=== PATIENT | male | born 1935 | race Caucasian/White ===

== ENCOUNTER 2017-11-14 18:12 | Inpatient (IN) | payer OTHER, MEDICARE ==
[~2017-11-14] VITALS: Ht 180.3 cm; Wt 95.3 kg
[2017-11-14 18:49] LABS: ABSOLUTE BASOPHIL COUNT 0.1 /CUMM (0.0-0.2); ABSOLUTE EOSINOPHIL COUNT 0.2 /CUMM (0.0-0.7); ABSOLUTE GRANULOCYTE CT 9.5 /CUMM (1.4-6.5); ABSOLUTE LYMPH COUNT 3.1 /CUMM (1.2-3.4); ABSOLUTE MONOCYTE COUNT 1.1 /CUMM (0.10-0.60); BASOPHIL % 0.4 % (0.0-2.0); EOSINOPHIL % 1.7 % (0-5); GRANULOCYTE % 67.7 % (42.2-75.2); HEMATOCRIT 36.6 % (42-52); MEAN CORPUSCULAR HGB 27.7 PG (27.0-31.0); MEAN CORPUSCULAR VOLUME 86.7 FL (80.0-94.0); MEAN PLATELET VOLUME 7.4 FL (7.4-10.4); PLATELET COUNT 230 /CUMM (130-400); RBC DISTRIBUTION WIDTH 14.1 % (11.5-14.5); RED BLOOD CELL CT 4.22 /CUMM (4.70-6.10)
--- NOTE | 2017-11-14 18:53 | ED DYSPNEA/ASTHMA COMPLAINT ---
History of Present Illness General Chief Complaint: Dyspnea (COPD, CHF, Other) Stated Complaint: SOB Source: patient, family (SON) Exam Limitations: no limitations Vital Signs & Intake/Output Vital Signs & Intake/Output Vital Signs Date Time Temp Pulse Resp B/P B/P Pulse O2 O2 Flow FiO2 Mean Ox Delivery Rate 11/15 0207 95.7 81 22 129/77 95 Nasal 4.0L Cannula 11/147 98.7 86 24 125/67 95 Nasal 3.5L Cannula 11/14 2111 99.8 94 24 133/66 96 Nasal 3.5L Cannula 11/14 1929 100.5 11/14 1855 102 24 126/71 97 Nasal 4.0L Cannula 11/14 1833 100.8 11/14 1831 85 Room Air Room Air 11/14 1823 100.8 114 25 150/72 85 Room Air Room Air ED Intake and Output 11/15 0000 11/14 1200 Intake Total Output Total 120 Balance -120 Output, Urine 120 Patient 210 lb Weight Weight Reported by Patient Measurement Method Allergies Coded Allergies: NO KNOWN ALLERGIES (10/30/11) Triage Note: PT TO ED WITH SON FOR SOB S/P BEING OUT OF HIS BASELINE 2L NC OXYGEN FOR APPROX 1 HOUR. PT ARRIVES VERY SOB, HYPOXIC 85% ON RA WITH STEADY PLETH, PT NOTICEABLY HAD INCREASED WORK OF BREATHING. PLACED ON NORMAL 2L NC WITH IMPROVEMENT TO 98%. PT'S LUNGS NOTED WITH CRACKLES BILATERALLY. SATHYA INFANTE AT BEDSIDE ON ARRIVAL. RESP CALLED. Triage Nurses Notes Reviewed? yes Onset: Abrupt Duration: day(s): (3-4), constant, continues in ED, getting worse Timing: single episode today Severity: mild, moderate Activities at Onset: activity Prior Episodes/Possible Cause: occasional episodes Modifying Factors: Improves With: rest. Worsens With: movement. Associated Symptoms: cough, wheezing HPI: 82-year-old male past medical history of atrial fibrillation, pulmonary fibrosis , aortic aneurysm presents for evaluation of cough, shortness of breath, wheezing and hypoxia. Patient states that for the past 3 days he has had cough congestion bodyaches and intermittent fevers. The cough has been productive of yellow sputum. He states that todaY he went out for about an hour from his house and did not bring his oxygen. He usually is dependent on 2 L at all times. He did not bring the oxygen with him and began to become very short of breath worsening cough and dizzy. He denies any chest pain or hemoptysis lower extremity edema. He has not taken any Tylenol for his fever. No nausea vomiting diarrhea or abdominal pain. He does not smoke. (Shaun Kowalski) Reconcile Medications Albuterol Sulfate (Proair Hfa) 90 MCG HFA.AER.AD 2 PUF INH 4XDAILY RESP. ( Reported) Apixaban (Eliquis) 5 MG TABLET 1 TAB PO BID BLOOD THINNER (Reported) Aspirin (Ecotrin*) 81 MG TABLET.DR 1 TAB PO QPM HEART/BLOOD (Reported) Atorvastatin Calcium 20 MG TABLET 1 TAB PO DAILY CHOLESTEROL (Reported) Candesartan Cilexetil 4 MG TABLET 1 TAB PO DAILY BP (Reported) Ezetimibe (Zetia) 10 MG TABLET 1 TAB PO DAILY CHOLESTEROL (Reported) Magnesium Oxide (Magnesium) (Unknown Strength) CAPSULE (Unknown Dose) PO DAILY SUPPLEMENT (Reported) Metoprolol Succinate 50 MG TAB.ER.24H 1 TAB PO DAILY HEART/BP (Reported) Nortriptyline HCl 75 MG CAPSULE 175 MG PO QHS DEPRESSION (Reported) (Altaf PARKS,Josette) Past History Medical History Any Pertinent Medical History? see below for history Neurological: NONE EENT: NONE Cardiovascular: aortic aneurysm, AFIB, hypertension, hyperlipidemia, CARDIAC BIPASS L SIDE PACER/DEFIB Respiratory: bronchitis Gastrointestinal: constipation, HERNIA L GROIN Hepatic: NONE Renal: NONE Musculoskeletal: COMPRESSION FX Psychiatric: depression Endocrine: NONE Blood Disorders: NONE Cancer(s): NONE Surgical History Surgical History: non-contributory Psychosocial History What is your primary language Bengali Family History Hx Contributory? No (Shaun Kowalski) Review of Systems Review of Systems Constitutional: Reports: fever, malaise, weakness. EENTM: Reports: no symptoms. Respiratory: Reports: see HPI, cough, short of breath, sputum production. Cardiovascular: Reports: no symptoms. GI: Reports: no symptoms. Genitourinary: Reports: no symptoms. Musculoskeletal: Reports: no symptoms. Skin: Reports: no symptoms. Neurological/Psychological: Reports: no symptoms. Hematologic/Endocrine: Reports: no symptoms. Immunologic/Allergic: Reports: no symptoms. All Other Systems: Reviewed and Negative (Shaun Kowalski) Physical Exam Physical Exam General Appearance: well developed/nourished, alert, awake, moderate distress Head: atraumatic, normal appearance Eyes: Bilateral: normal appearance, PERRL, EOMI. Ears, Nose, Throat: normal pharynx, normal ENT inspection, hearing grossly normal Neck: normal inspection, supple, full range of motion, JVD Respiratory: chest non-tender, crackles, respiratory distress Cardiovascular: normal peripheral pulses, tachycardia (116 BPM) Peripheral Pulses: 2+ radial (R) Gastrointestinal: normal bowel sounds, soft, non-tender, no organomegaly Extremities: normal inspection, normal capillary refill, normal range of motion, no edema Neurologic/Psych: no motor/sensory deficits, awake, alert, oriented x 3, normal gait Skin: intact, normal color, warm/dry Lymphatic: no anterior cervical sabina Core Measures ACS in differential dx? No CVA/TIA Diagnosis No Sepsis Present: No Sepsis Focused Exam Completed? No (Thaddeus MCDONNELL,Shaun) Progress Differential Diagnosis: asthma, AMI, costochondritis, CHF, COPD, pericarditis, pulmonary embolism, pneumonia, pneumothorax, rib fracture, unstable angina, INFLUENZA Plan of Care: Orders Procedure Date/time Status Regular Diet 11/15 B Active CBC WITHOUT DIFFERENTIAL 11/15 0600 Active BASIC ELECTROLYTES PLUS BUN&CR 11/15 0600 Active CULTURE,URINE 11/14 2300 Active LOWER RESPIRATORY CULTURE 11/14 2300 Active TRC EVALUATION (GEN) 11/14 2242 Active OXYGEN SETUP (GEN) 11/14 224 Active Pathway - chart 11/14 224 Active House Staff 11/14 2242 Active Patient Data 11/14 2242 Active Code Status 11/14 2242 Active ED Holding Orders 11/14 2212 Active Admit to inpatient 11/14 2212 Active Vital Signs 11/14 2212 Active Code Status 11/14 2212 Complete LACTIC ACID 11/14 2128 Complete Patient Data 11/14 2108 Active MAGNESIUM 11/14 1828 Active LACTIC ACID 11/14 1828 Complete GLYCOSYLATED HGB 11/14 1828 Active D-DIMER 11/14 1828 Complete RAPID VIRAL INFLUENZA A 11/14 182 Complete BLOOD CULTURE 11/14 1826 Active URINALYSIS 11/14 1826 Complete TROPONIN LEVEL 11/14 1826 Active COMPREHENSIVE METABOLIC PANEL 11/14 1826 Active CBC WITHOUT DIFFERENTIAL 11/14 1826 Complete B-TYPE NATRIURETIC PEP (BNP) 11/14 1826 Active Intake & Output 11/14 1820 Active EKG 11/14 1818 Active Lab Add-on Test 11/14 UNK Active VTE Mechanical Prophylaxis 11/14 UNK Active Vital Signs 11/14 UNK Active Telemetry/Foundry Worker Apprentice 11/14 UNK Active Intake & Output 11/14 UNK Active Current Medications Sig/Sulaiman Start time Last Medication Dose Stop Time Status Admin Aspirin Buffered 81 MG QPM 11/15 2200 AC (Ecotrin) Atorvastatin Calcium 20 MG 1700 11/15 1700 AC (Lipitor) Azithromycin 500 MG DAILY 11/15 1000 CAN (Zithromax) Dextrose/Water 250 ML (D5W) Ceftriaxone Sodium 1,000 MG DAILY 11/15 1000 CAN (Rocephin) Ezetimibe 10 MG DAILY 11/15 1000 AC (Zetia) Losartan Potassium 25 MG DAILY 11/15 1000 AC (Cozaar) Metoprolol Succinate 50 MG DAILY 11/15 1000 AC (Toprol Xl) Nortriptyline HCl 175 MG QPM 11/14 2300 AC 11/14 (Aventyl 50MG - 2328 Pamelor Cap) Acetaminophen 650 MG Q6P PRN 11/14 2245 AC (Tylenol) Acetaminophen 1,000 MG Q6P PRN 11/14 2245 AC (Ofirmev) Morphine Sulfate 2 MG Q4P PRN 11/14 2245 AC (Morphine) Apixaban 5 MG BID 11/14 2243 AC 11/14 (Eliquis) 2328 Laboratory Tests 11/14/172124: Lactic Acid 1.5 11/14/172114: Urine Color YEL, Urine Clarity CLDY H, Urine pH 6.0, Ur Specific Downing 1.020, Urine Protein NEG, Urine Ketones NEG, Urine Nitrite POS H, Urine Bilirubin NEG, Urine Urobilinogen 1.0, Ur Leukocyte Esterase MOD H, Ur Microscopic SEDIMENT EXAMINED, Urine RBC 10-15 H, Urine WBC 50-75 H, Ur Epithelial Cells FEW, Urine Bacteria PACKD H, Urine Mucus FEW, Urine Hemoglobin LARGE H, Urine Glucose NEG 11/14/171827: Lactic Acid 2.9 H 11/14/171827: Anion Gap 15, Estimated GFR > 60, BUN/Creatinine Ratio 19.0, Glucose 166 H, Hemoglobin A1c Pending, Calcium 8.8, Magnesium 1.8, Total Bilirubin 0.6, AST 38, ALT 32, Alkaline Phosphatase 108, Troponin I 0.02, Ivu-M-Ghqbufohzge Pept 1860 H, Total Protein 7.7, Albumin 3.6, Globulin 4.1, Albumin/Globulin Ratio 0.9 L, D-Dimer High Sensitivty 1024 H, CBC w Diff NO MAN DIFF REQ, RBC 4.22 L, MCV 86.7, MCH 27.7, MCHC 32.0 L, RDW 14.1, MPV 7.4, Gran % 67.7, Lymphocytes % 22.1 , Monocytes % 8.1, Eosinophils % 1.7, Basophils % 0.4, Absolute Granulocytes 9.5 H, Absolute Lymphocytes 3.1, Absolute Monocytes 1.1 H, Absolute Eosinophils 0.2, Absolute Basophils 0.1 Microbiology 11/14 2299 URINE ROUT: Urine Culture - ORD 11/14 2299 LOWER RESP: Respiratory Culture - ORD 11/14 2299 LOWER RESP: Gram Stain - ORD 11/14 190 BLOOD: Blood Culture - RECD 11/14 184 BLOOD: Blood Culture - RECD 11/14 1828 NASOPHARYN: Influenza Virus A & B Rapid Smear - COMP Patient seen and evaluated. Upon initial presentation he is febrile and hypoxic. He is 85% on room air and in significant respiratory distress. Patient was placed on nasal cannula at 6 L and eventually was able to be titrated down to 3 L. Normally he is on too. Patient still has significant work of breathing with moving around the bed or talking. Rapid flu test is negative. Blood work shows a lactic acidosis and white blood cell count of 14, 000. Lactic acid is 2.9 slow fluids ordered. His d-dimer is elevated but CTA is negative for pulmonary embolism. There is aN interstitial pneumonia present on CTA. No recent hospitalizations, history of MRSA. Patient will be treated for community-acquired pneumonia with ceftriaxone and Zithromax. Additionally he'll be given IV Solu-Medrol for treatment of pulmonary fibrosis and hypoxia. He does take daily prednisone. Patient will be admitted to the hospital for further evaluation and treatment. He'll need IV antibiotics and IV steroids IV fluids pulmonology consults antipyretics DuoNeb's serial imaging. Case discussed with Dr. Harry she agrees Diagnostic Imaging: Viewed by Me: CT Scan. Discussed w/RAD: CT Scan. Radiology Impression: PATIENT: MAXIMINO MASON PRESENT AGE: 82 PATIENT ACCOUNT NO: [id number] : 36 LOCATION: [facility] ORDERING PHYSICIAN: Shaun MCDONNELL SERVICE DATE: 11/14/17 EXAM TYPE: CAT - CTA CHEST-PULMONARY EMBOLISM EXAMINATION: CT ANGIOGRAM OF THE CHEST WITH AND WITHOUT CONTRAST (CT PULMONARY ANGIOGRAM FOR PE) CLINICAL INFORMATION: Reason for Study:
Presumptive Dx: PE, PNA
Signs Symptoms: SOB, FEVER HYPOXIA < br> COMPARISON: CT chest 09/07/2015 TECHNIQUE: Prior to contrast administration, noncontrast localization images were obtained. Subsequently, multidetector volumetric imaging was performed from the thoracic inlet to below the diaphragms following the administration of 70 mL artery 350 intravenous contrast. No contrast reaction reported. Sagittal, coronal, and MIP oblique sagittal reformatted images were obtained on the CT workstation, uploaded to PACS, and reviewed. Total exam dose-length product 520 mGy-cm. FINDINGS: QUALITY OF STUDY/ CONTRAST BOLUS: Satisfactory PULMONARY ARTERIES: No central or segmental pulmonary emboli. No subsegmental pulmonary. THORACIC AORTA: No aneurysm or dissection. LUNG: There is significant progression of subpleural honeycombing evident anteriorly within both the upper left and upper right lobes and also present within the bases posteriorly. The area of involvement has at least doubled compared to the CT of 09/07/2015. Mild centrilobular anomaly upper lobe emphysema is redemonstrated. There are no areas of focal consolidation. No pleural effusion. PLEURA: No pleural effusion or pneumothorax. MEDIASTINUM: AICD device present in left upper chest, as before. The heart size is mildly enlarged. The main pulmonary artery remains enlarged measuring up to 3.6 cm in diameter. Numerous mediastinal lymph nodes are identified. AP window lymph nodes measure up to at least 1.3 cm in short axis diameter. Moderately severe coronary artery calcifications are also demonstrated. No evidence of septal bowing or right heart strain. CHEST WALL/AXILLA: No axillary or internal mammary lymphadenopathy. OSSEOUS STRUCTURES: High attenuation material is redemonstrated within the T8 and T12 vertebral bodies consistent with kyphoplasty. Compression fracture involving the T7 vertebral body with approximately 50% loss in height is redemonstrated appears stable compared to 2015. There is superior endplate deformity involving the T3 vertebral body also appears stable compared to previous. Median sternotomy wires in place. UPPER ABDOMEN: Gallstones are partially imaged. No reflux of contrast into the hepatic veins to suggest elevated right heart pressures. IMPRESSION: 1. No acute pulmonary embolism. 2. No convincing superimposed acute cardiopulmonary process. 3. Extensive subpleural honeycombing significantly increased compared to 2014 concerning for progression of usual interstitial pneumonia. Persistent mild underlying centrilobular emphysema. 4. Enlarged main pulmonary artery suggesting underlying pulmonary hypertension. 5. Cholelithiasis. 6. Stable appearance of multiple compression fractures involving the thoracic spine, some of which have been treated with kyphoplasty. VTE: negative DICTATED BY: Denita Hernández MD DATE/TIME DICTATED:11/14/172029 REPAIR SPECIALIST:ATWOOD DATE/TIME TRANSCRIBED:2029 CONFIDENTIAL, DO NOT COPY WITHOUT APPROPRIATE AUTHORIZATION. CXR Impression: PATIENT: MAXIMINO MASON PRESENT AGE: 82 PATIENT ACCOUNT NO: [id number] : 36 LOCATION: [facility] ORDERING PHYSICIAN: Shaun MCDONNELL SERVICE DATE: 11/14/17 EXAM TYPE: RAD - XRY- PORTABLE CHEST XRAY EXAMINATION: XR PORTABLE CHEST CLINICAL INFORMATION: Shortness of breath, fever and hypoxia. COMPARISON: 08/20/2015 TECHNIQUE: Portable frontal view of the chest was obtained. FINDINGS: Chronic interstitial lung disease. No radiographic evidence of superimposed focal consolidation or pleural effusion. Chronic cardiomegaly with dual-chamber pacemaker/AICD in place. Stable prominence of central pulmonary vessels. No overt edema. Sternotomy wires are intact. Atherosclerotic calcification of the thoracic aorta. The visualized bones are intact. IMPRESSION: 1. Chronic interstitial pulmonary fibrosis. 2. No overt evidence of superimposed edema or acute consolidation. 3. Cardiomegaly and chronically enlarged pulmonary arteries -- as may be seen in pulmonary arterial hypertension. DICTATED BY: Ish Reid MD DATE/TIME DICTATED:11/14/172039 REPAIR SPECIALIST:ATWOOD DATE/TIME TRANSCRIBED:11/14/172039 CONFIDENTIAL, DO NOT COPY WITHOUT APPROPRIATE AUTHORIZATION. Initial ED EKG: pacemaker rhythm, VENTRICULAR PACED RHYTHM (Shaun Kowalski) Departure Departure Disposition: STILL A PATIENT Condition: Stable Clinical Impression Primary Impression: Pneumonia Qualifiers: Pneumonia type: due to unspecified organism Laterality: unspecified laterality Lung location: unspecified part of lung Qualified Code: J18.9 - Pneumonia, unspecified organism Secondary Impressions: Hypoxia Referrals: Keyon Lr MD (PCP/Family) Departure Forms: Customer Survey General Discharge Information Admission Note Spoke With: Adeline PARKS,Keyon Dunlap Documentation of Exam: Documentation of any treatments & extenuating circumstances including Concerns Regarding Discharge (functional status, medication knowledge or non-compliance, living conditions, etc.) that warrant an admission rather than observation: [IV antibiotics, IV fluids, serial labs, serial imaging, IV antipyretics, pulmonology consult, DuoNeb's, IV steroids] (Shaun Kowalski) PA/COAT FITTER Co-Sign Statement Statement: ED Attending supervision documentation- [X] I saw and evaluated the patient. I have also reviewed all the pertinent lab results and diagnostic results. I agree with the findings and the plan of care as documented in the PA's/COAT FITTER's documentation. [X] I have reviewed the ED Record and agree with the PA's/COAT FITTER's documentation. [] Additions or exceptions (if any) to the PAs/COAT FITTER's note and plan are summarized below: [] (Altaf PARKS,Josette) Critical Care Note Critical Care Note Critical Care Time: 30-74 min (Shaun Kowalski)
[2017-11-14] MEDS ORDERED: [UNRECOGNIZED DRUG - OTHER] PO (20:19)
[2017-11-14] MEDS ORDERED: PROAIR HFA8.5 GM INH (20:20)
[2017-11-14] MEDS ORDERED: ELIQUIS5 M1 PO (20:20)
[2017-11-14] MEDS ORDERED: NORTRIPTYLINE H25 M2 PO (20:21)
[2017-11-14] MEDS ORDERED: ATORVASTATIN CA20 M1 PO (20:21)
[2017-11-14] MEDS ORDERED: METOPROLOL SUCC50 M2 PO (20:21)
[2017-11-14] MEDS ORDERED: NORTRIPTYLINE H75 M2 PO (20:21)
[2017-11-14] MEDS ORDERED: ASPIRIN EC81 M1 PO (20:22)
[2017-11-14] MEDS ORDERED: MAGNESIUM400 M1 PO (20:22)
[2017-11-14] MEDS ORDERED: ZETIA10 M1 PO (20:22)
--- NOTE | 2017-11-14 20:43 | CT SCAN REPORT ---
EXAMINATION: CT ANGIOGRAM OF THE CHEST WITH AND WITHOUT CONTRAST (CT PULMONARY ANGIOGRAM FOR PE) CLINICAL INFORMATION: Reason for Study:
Presumptive Dx: PE, PNA
Signs Symptoms: SOB, FEVER HYPOXIA
COMPARISON: CT chest 09/07/2015 TECHNIQUE: Prior to contrast administration, noncontrast localization images were obtained. Subsequently, multidetector volumetric imaging was performed from the thoracic inlet to below the diaphragms following the administration of 70 mL artery 350 intravenous contrast. No contrast reaction reported. Sagittal, coronal, and MIP oblique sagittal reformatted images were obtained on the CT workstation, uploaded to PACS, and reviewed. Total exam dose-length product 520 mGy-cm. FINDINGS: QUALITY OF STUDY/CONTRAST BOLUS: Satisfactory PULMONARY ARTERIES: No central or segmental pulmonary emboli. No subsegmental pulmonary. THORACIC AORTA: No aneurysm or dissection. LUNG: There is significant progression of subpleural honeycombing evident anteriorly within both the upper left and upper right lobes and also present within the bases posteriorly. The area of involvement has at least doubled compared to the CT of 09/07/2015. Mild centrilobular anomaly upper lobe emphysema is redemonstrated. There are no areas of focal consolidation. No pleural effusion. PLEURA: No pleural effusion or pneumothorax. MEDIASTINUM: AICD device present in left upper chest, as before. The heart size is mildly enlarged. The main pulmonary artery remains enlarged measuring up to 3.6 cm in diameter. Numerous mediastinal lymph nodes are identified. AP window lymph nodes measure up to at least 1.3 cm in short axis diameter. Moderately severe coronary artery calcifications are also demonstrated. No evidence of septal bowing or right heart strain. CHEST WALL/AXILLA: No axillary or internal mammary lymphadenopathy. OSSEOUS STRUCTURES: High attenuation material is redemonstrated within the T8 and T12 vertebral bodies consistent with kyphoplasty. Compression fracture involving the T7 vertebral body with approximately 50% loss in height is redemonstrated appears stable compared to 2015. There is superior endplate deformity involving the T3 vertebral body also appears stable compared to previous. Median sternotomy wires in place. UPPER ABDOMEN: Gallstones are partially imaged. No reflux of contrast into the hepatic veins to suggest elevated right heart pressures. IMPRESSION: 1. No acute pulmonary embolism. 2. No convincing superimposed acute cardiopulmonary process. 3. Extensive subpleural honeycombing significantly increased compared to 2015 concerning for progression of usual interstitial pneumonia. Persistent mild underlying centrilobular emphysema. 4. Enlarged main pulmonary artery suggesting underlying pulmonary hypertension. 5. Cholelithiasis. 6. Stable appearance of multiple compression fractures involving the thoracic spine, some of which have been treated with kyphoplasty. VTE: negative
--- NOTE | 2017-11-14 20:47 | RADIOLOGY REPORT ---
EXAMINATION: XR PORTABLE CHEST CLINICAL INFORMATION: Shortness of breath, fever and hypoxia. COMPARISON: 08/20/2015 TECHNIQUE: Portable frontal view of the chest was obtained. FINDINGS: Chronic interstitial lung disease. No radiographic evidence of superimposed focal consolidation or pleural effusion. Chronic cardiomegaly with dual-chamber pacemaker/AICD in place. Stable prominence of central pulmonary vessels. No overt edema. Sternotomy wires are intact. Atherosclerotic calcification of the thoracic aorta. The visualized bones are intact. IMPRESSION: 1. Chronic interstitial pulmonary fibrosis. 2. No overt evidence of superimposed edema or acute consolidation. 3. Cardiomegaly and chronically enlarged pulmonary arteries -- as may be seen in pulmonary arterial hypertension.
--- NOTE | 2017-11-14 22:06 | History & Physical ---
Magaile PARKS,[facility] 11/14/17 7213: General Information and HPI MD Statement: I have seen and personally examined MAXIMINO MASON and documented this H&P. The patient is a 82 year old M who presented with a patient stated chief complaint of [shortness of breath]. Source of Information: patient Exam Limitations: no limitations History of Present Illness: Mr. Mason is an 82-year-old gentleman with past medical history significant for aortic aneurysm, pulmonary fibrosis on 2 L of oxygen at home, atrial fibrillation on Eliquis, hypertension, hyperlipidemia, SD status post CABG, and depression presents with shortness of breath. Patient is on 2 L of oxygen at home, went out for a walk today, when he ran out of the oxygen, started feeling short of breath and was brought in to the hospital. Patient also has chronic cough with loredo colored sputum production, does not have any recent change in amount or color of sputum. Denies any fever/ chills, respiratory symptoms, chest pain, palpitations, orthopnea or increased leg swelling. Son is sick at home with the runny nose. Allergies/Medications Allergies: Coded Allergies: NO KNOWN ALLERGIES (10/30/11) Past History Travel History Traveled to [place] past 21 day No Medical History Neurological: NONE EENT: NONE Cardiovascular: aortic aneurysm, AFIB, hypertension, hyperlipidemia, CARDIAC BIPASS L SIDE PACER/DEFIB Respiratory: bronchitis Gastrointestinal: constipation, HERNIA L GROIN Hepatic: NONE Renal: NONE Musculoskeletal: COMPRESSION FX Psychiatric: depression Endocrine: NONE Blood Disorders: NONE Cancer(s): NONE Surgical History Surgical History: non-contributory Past Family/Social History Psychosocial History Where do you live? Home Smoking Status: Former Smoker ETOH Use: denies use Illicit Drug Use: denies illicit drug use Review of Systems Review of Systems Constitutional: Reports: no symptoms. EENTM: Reports: no symptoms. Cardiovascular: Reports: no symptoms. Respiratory: Reports: cough, short of breath, sputum production. GI: Reports: no symptoms. Genitourinary: Reports: no symptoms. Musculoskeletal: Reports: no symptoms. Skin: Reports: no symptoms. Neurological/Psychological: Reports: no symptoms. Hematologic/Endocrine: Reports: no symptoms. Immunologic/Allergic: Reports: no symptoms. All Other Systems: Reviewed and Negative Exam & Diagnostic Data Last 24 Hrs of Vital Signs/I&O Vital Signs Date Time Temp Pulse Resp B/P B/P Pulse O2 O2 Flow FiO2 Mean Ox Delivery Rate 11/15 0207 95.7 81 22 129/77 95 Nasal 4.0L Cannula 11/147 98.7 86 24 125/67 95 Nasal 3.5L Cannula 11/14 2111 99.8 94 24 133/66 96 Nasal 3.5L Cannula 11/14 1929 100.5 11/14 1855 102 24 126/71 97 Nasal 4.0L Cannula 11/14 1833 100.8 11/14 1831 85 Room Air Room Air 11/14 1823 100.8 114 25 150/72 85 Room Air Room Air Intake & Output 11/15 0800 11/15 0000 11/14 1600 Intake Total Output Total 120 Balance -120 Output, Urine 120 Patient 210 lb Weight Weight Reported by Patient Measurement Method Physical Exam General Appearance Alert, Oriented X3, Cooperative, No Acute Distress Skin No Rashes, No Breakdown Cardiovascular Regular Rate, Normal S1, Normal S2 Lungs Crackles on bilateral lung engle Abdomen Normal Bowel Sounds, Soft, No Tenderness Extremities No Clubbing, No Cyanosis, Normal Pulses, +2 pitting edema Last 24 Hrs of Labs/Brian: Laboratory Tests 11/15/17 0556: Sodium Pending, Potassium Pending, Chloride Pending, Carbon Dioxide Pending, Anion Gap Pending, BUN Pending, Creatinine Pending, BUN/Creatinine Ratio Pending , CBC w Diff Pending, WBC Pending, RBC Pending, Hgb Pending, Hct Pending, MCV Pending, MCH Pending, MCHC Pending, RDW Pending, Plt Count Pending, MPV Pending 11/14/172124: Lactic Acid 1.5 11/14/172114: Urine Color YEL, Urine Clarity CLDY H, Urine pH 6.0, Ur Specific [place] 1.020, Urine Protein NEG, Urine Ketones NEG, Urine Nitrite POS H, Urine Bilirubin NEG, Urine Urobilinogen 1.0, Ur Leukocyte Esterase MOD H, Ur Microscopic SEDIMENT EXAMINED, Urine RBC 10-15 H, Urine WBC 50-75 H, Ur Epithelial Cells FEW, Urine Bacteria PACKD H, Urine Mucus FEW, Urine Hemoglobin LARGE H, Urine Glucose NEG 11/14/171827: Lactic Acid 2.9 H 11/14/171827: Anion Gap 15, Estimated GFR > 60, BUN/Creatinine Ratio 19.0, Glucose 166 H, Hemoglobin A1c Pending, Calcium 8.8, Magnesium 1.8, Total Bilirubin 0.6, AST 38, ALT 32, Alkaline Phosphatase 108, Troponin I 0.02, Pas-L-Vzwoianbcdw Pept 1860 H, Total Protein 7.7, Albumin 3.6, Globulin 4.1, Albumin/Globulin Ratio 0.9 L, D-Dimer High Sensitivty 1024 H, CBC w Diff NO MAN DIFF REQ, RBC 4.22 L, MCV 86.7, MCH 27.7, MCHC 32.0 L, RDW 14.1, MPV 7.4, Gran % 67.7, Lymphocytes % 22.1 , Monocytes % 8.1, Eosinophils % 1.7, Basophils % 0.4, Absolute Granulocytes 9.5 H, Absolute Lymphocytes 3.1, Absolute Monocytes 1.1 H, Absolute Eosinophils 0.2, Absolute Basophils 0.1 Microbiology 11/14 2299 URINE ROUT: [facility]rine [facility] - [facility] 11/14 2299 LOWER RESP: Respiratory Culture - [facility] 11/14 2299 LOWER RESP: Gram Stain - [facility] 11/14 190 BLOOD: Blood Culture - [facility] 11/14 1843 BLOOD: Blood Culture - [facility] 11/14 1828 NASOPHARYN: Influenza Virus A & B Rapid Smear - COMP Diagnostic Data EKG Results Ventricularly Paced CXR Results IMPRESSION: 1. Chronic interstitial pulmonary fibrosis. 2. No overt evidence of superimposed edema or acute consolidation. 3. Cardiomegaly and chronically enlarged pulmonary arteries -- as may be seen in pulmonary arterial hypertension. Other Results CTA Chest IMPRESSION: 1. No acute pulmonary embolism. 2. No convincing superimposed acute cardiopulmonary process. 3. Extensive subpleural honeycombing significantly increased compared to 2015 concerning for progression of usual interstitial pneumonia. Persistent mild underlying centrilobular emphysema. 4. Enlarged main pulmonary artery suggesting underlying pulmonary hypertension. 5. Cholelithiasis. 6. Stable appearance of multiple compression fractures involving the thoracic spine, some of which have been treated with kyphoplasty. VTE: negative Assessment/Plan Assessment: Mr. Mason is an 82-year-old gentleman with past medical history significant for aortic aneurysm, pulmonary fibrosis on 2 L of oxygen at home, atrial fibrillation on Eliquis, hypertension, hyperlipidemia, SD status post CABG, and depression presents with shortness of breath. A/P; 1. Shortness of Breath; Even though patient denies any worsening cough or sputum production and the chest x-rays negative for any signs of infection, Patient was found to O2 sats of 85% on room air in the ER, increased to 97% on 4 L of supplemental oxygen(increased from his baseline of 2 L) and had a MAXIMUM TEMPERATURE of 100.8. - We'll admit the patient to general medicine floor - Will watch off antibiotics for now - f/u blood and sputum cultures - Supplemental O2 as needed - TRC Neb - Flu Swab Negative 2. Positive UA; patient denies any urinary symptoms. - Will watch off antibiotics. - Follow-up urine culture 3. Chronic medical conditions; - Continue home medications. DVT prophylaxis; patient is on Eliquis Patient is DNR/DNI. As Ranked By This Provider Problem List: 1. Hypoxia Core Measures/Misc (07/05) Acute Coronary Syndrome ACS Diagnosis: No Congestive Heart Failure Congestive Heart Failure Diagnosis No Cerebrovascular Accident CVA/TIA Diagnosis: No VTE (View Protocol) VTE Risk Factors Age>40 No Mechanical VTE Prophylaxis d/t N/A MechProphylax Ordered No VTE Pharm Prophylaxis d/t NA PharmProphylax ordered Sepsis (View protocol) Sepsis Present: No Roni PARKS,Anjel 11/15/17 0317: General Information and HPI Allergies/Medications Home Med list Albuterol Sulfate (Proair Hfa) 90 MCG HFA.AER.AD 2 PUF INH 4XDAILY RESP. ( Reported) Apixaban (Eliquis) 5 MG TABLET 1 TAB PO BID BLOOD THINNER (Reported) Aspirin (Ecotrin*) 81 MG TABLET.DR 1 TAB PO QPM HEART/BLOOD (Reported) Atorvastatin Calcium 20 MG TABLET 1 TAB PO DAILY CHOLESTEROL (Reported) Candesartan Cilexetil 4 MG TABLET 1 TAB PO DAILY BP (Reported) Ezetimibe (Zetia) 10 MG TABLET 1 TAB PO DAILY CHOLESTEROL (Reported) Magnesium Oxide (Magnesium) (Unknown Strength) CAPSULE (Unknown Dose) PO DAILY SUPPLEMENT (Reported) Metoprolol Succinate 50 MG TAB.ER.24H 1 TAB PO DAILY HEART/BP (Reported) Nortriptyline HCl 75 MG CAPSULE 175 MG PO QHS DEPRESSION (Reported) Resident Review Statement Resident Statement: examined this patient, discussed with hr internship, agreed with hr internship Other Findings: This is an 82-year-old male with past medical history significant for atrial fibrillation, pulmonary fibrosis, AAA with stenting, hypertension, hyperlipidemia, CAD status post CABG in 1983 stenting 1999, insertion of pacer and defibrillator, depression, who comes in for chief complaint of shortness of breath. Patient states that he was in his usual health today and went out for a walk. Subsequently for the last portion of his walk he ran out of his baseline 2 L O2. As soon as he ran out of his oxygen he noted himself becoming short of breath, called for help and was then brought in the hospital. Patient denies any recent URI, congestion, sore throat, worsening dyspnea, or fever, prior to running out of O2. He denies any change in usual health, no change in bladder or bowel habits. Does endorse chronic cough which has not changed in nature or quality or quantity of sputum. Patient does endorse sick contacts in a son with downs syndrome who lives with him. His son has "congestion and runny nose." No fevers, cough, sorethroat noted. He is not taking any abx. In ED he was found to be hypoxic, satting 85% on room air. Vitals: 100.8, heart rate 114, respiratory rate 25, BP 150/72-126/71, 85 or 97% on 3 L Labs: UA cloudy with positive nitrite, moderate leukocyte esterase, 50-75 white blood cell, packed bacteria, large hemoglobin. C BC: White count 14, hemoglobin 11.7, hematocrit 36.6. D-dimer 1024. Glucose 166. Lactic acid 2.920. BNP 1860. Chest x-ray shows chronic interstitial pulmonary process, enlarged pulmonary arteries. No evidence of consolidation. CTA: Shows markedly progression of disease since 2015. Evidence of old compression fractures. No evidence of pneumonia. Negative influenza swab. EKG: Shows paced rhythm with rate of 112 Assessment: This is an 82-year-old gentleman with past medical history significant for CAD status post CABG and stenting, depression, atrial fibrillation, hypertension, hyperlipidemia, AAA with endovascular stenting, pulmonary fibrosis, who comes in for chief complaint of shortness of breath after running out of his baseline 2 liters of oxygen. In ED he was found to be febrile up to 100.8, tachycardic up to 114, with a white count of 14. He was empirically treated for pneumonia with ceftriaxone and azithromycin. However, given that patient has no radiographic evidence of PNA, does have significant underlyng pulmonary comorbodities and was in his usual health until his oxygen ran out, and subsequently returned to his baseline sats with his 2 L O2 suspect that he likely has viral URI vs bronchitis, especially given that son is sick contact. Plan: Hypoxia: Patient has resumed his usual 2 L O2 with satisfactory is saturation. He received 1 dose of ceftriaxone and azithromycin in ED. He did have fever, leukocytosis, tachyardia, hypoxia and lactic acid on admission. Initially there was concern for sepsis 2/2 PNA. However, his lack of baseline O2 could have led to hypoxia, tachycardia, and lactic acidosis. No evidence of PNA on cxr or CT. At this time will hold off on treating as he does not seem like he has a pneumonia, likely bronchitis superimposed with hypoxia due to inadequate FiO2. Note UA is + for LE, N, and 50-75 wbc. Pt is entirely asymptomatic. Will hold off treating UTI. He got one dose of ceftriaxone, azithro and Tamiflu in ED. * Hold off abx * Blood cx * Ucx * LRC * TRC * O2 for sats > 92 * Negative flu swab. Not treating for influenza. AFIB: Pt has hx of Afib. Has pacer and defibrillator placed. EKG shows paced complexes with rate 112. * Con't eliquis * Metoprolol Succinate Depression: * Con't Nortryptaline 175mg HTN: * Con't Candesartan HLD: * Con't Zetia * Con't Statin DNR/DNI Regular diet Chem ppx Keyon Lr MD 11/16/17 1559: Attending MD Review Statement Attending Statement Attending MD Statement: examined this patient, discuss w/resident/PA/EM PHYSICIAN, discussed with family, reviewed EMR data (avail), reviewed images, amended to note Attending Assessment/Plan: Mr. Mason was interviewed and examined while in the ED last evening. Problems: -Acute hypoxemic respiratory failure -IPF -Centrilobular emphysema -CAD -Status post coronary bypass in 1983 -A. fib -Hypertension -Dyslipidemia -Adjustment reaction with depressed mood -History of thoracic compression fractures Plan: -Admit telemetry -TRC trial of nebs -Cultures -Initial dose of ceftriaxone and azithromycin -Nasal cannula oxygen to keep SaO2 at 95% -Continue anticoagulation -Continue antihypertensives -Continue statin -Furosemide 20 mg IV 1 -Follow electrolytes and renal function -Continue antidepressant -Pulmonary consultation Benja Landis MD -Cardiology consultation Dr. Will Vazquez
[2017-11-15 06:04] LABS: ABSOLUTE BASOPHIL COUNT 0 /CUMM (0.0-0.2); ABSOLUTE EOSINOPHIL COUNT 0 /CUMM (0.0-0.7); ABSOLUTE GRANULOCYTE CT 8.9 /CUMM (1.4-6.5); ABSOLUTE LYMPH COUNT 2.3 /CUMM (1.2-3.4); ABSOLUTE MONOCYTE COUNT 0.2 /CUMM (0.10-0.60); BASOPHIL % 0.2 % (0.0-2.0); EOSINOPHIL % 0 % (0-5); GRANULOCYTE % 78.5 % (42.2-75.2); HEMATOCRIT 33.1 % (42-52); MEAN CORPUSCULAR HGB 28.2 PG (27.0-31.0); MEAN CORPUSCULAR VOLUME 85.7 FL (80.0-94.0); PLATELET COUNT 184 /CUMM (130-400); RBC DISTRIBUTION WIDTH 14.2 % (11.5-14.5); RED BLOOD CELL CT 3.87 /CUMM (4.70-6.10); WHITE BLOOD CELL COUNT 11.4 /CUMM (4.8-10.8)
--- NOTE | 2017-11-15 09:07 | PN- Housestaff ---
See Addendum Subjective Follow-up For: Shortness of breath Complaints: no complaints Tele-Events Since Last Visit: Paced rhythm heart rate of 101 Subjective: Patient was seen and examined at bedside. He was sitting in his bed comfortably and talking to the son. No overnight events. He offers no complaints. He is on 2.5 L of O2 He denies chest pain, chest pressure, nausea, vomiting, abdominal pain, shortness of breath Review of Systems Constitutional: Reports: no symptoms. Cardiovascular: Reports: no symptoms. Respiratory: Reports: no symptoms. Gastrointestinal: Reports: no symptoms. Genitourinary: Reports: no symptoms. Musculoskeletal: Reports: no symptoms. Objective Last 24 Hrs of Vital Signs/I&O Vital Signs Date Time Temp Pulse Resp B/P B/P Pulse O2 O2 Flow FiO2 Mean Ox Delivery Rate 11/15 1119 97.5 85 18 130/77 98 Room Air 11/15 1117 97.5 85 18 130/77 98 Room Air 11/15 1025 78 114/66 11/15 1025 78 114/66 11/15 1024 78 20 114/66 96 Nasal 3.0L Cannula 11/15 0737 98 Nasal 4.0L Cannula 11/15 0558 95.6 78 20 127/65 97 Nasal 4.0L Cannula 11/15 0207 95.7 81 22 129/77 95 Nasal 4.0L Cannula 11/14 2257 98.7 86 24 125/67 95 Nasal 3.5L Cannula 11/14 2112 99.8 94 24 133/66 96 Nasal 3.5L Cannula 11/14 1929 100.5 11/14 1855 102 24 126/71 97 Nasal 4.0L Cannula 11/14 1833 100.8 11/14 1831 85 Room Air Room Air 11/14 1823 100.8 114 25 150/72 85 Room Air Room Air Intake & Output 11/15 1600 11/15 0800 11/15 0000 Intake Total Output Total 150 120 Balance -150 -120 Output, Urine 150 120 Patient 210 lb 210 lb Weight Weight Reported by Patient Reported by Patient Measurement Method Physical Exam General Appearance: Alert, Oriented X3, Cooperative, No Acute Distress Skin: 1 CM HEALED WOUND SEEN IN THE GROIN AREA HEENT: Atraumatic Cardiovascular: Normal S1, Normal S2, No Murmurs Lungs: Normal Air Movement Abdomen: Soft, No Tenderness, No Hepatospenomegaly Neurological: Strength at 5/5 X4 Ext, Normal Tone, Sensation Intact Extremities: No Edema Current Medications: Current Medications Sig/Sulaiman Start time Last Medication Dose Route Stop Time Status Admin Acetaminophen 650 MG Q6P PRN 11/14 2244 AC PO Acetaminophen 1,000 MG Q6P PRN 11/14 2244 AC IV Acetaminophen 0 .STK-MED ONE 11/14 1835 DC IV Acetaminophen 1,000 MG ONCE ONE 11/14 1830 DC 11/14 N/A 1 UNIT IV 11/14 184 183 Apixaban 5 MG BID 11/14 224 AC 11/15 PO 1025 Aspirin Buffered 81 MG QPM 11/15 2200 AC PO Atorvastatin Calcium 20 MG 1700 11/15 1700 AC PO Azithromycin 500 MG DAILY 11/15 1000 CAN Dextrose/Water 250 ML IV Azithromycin 500 MG ONCE ONE 11/14 2100 DC 11/14 Dextrose/Water 250 ML IV 11/14 Ceftriaxone Sodium 1,000 MG DAILY 11/15 1000 CAN IV Ceftriaxone Sodium 0 .STK-MED ONE 11/14 2101 DC .ROUTE Ceftriaxone Sodium 1,000 MG ONCE ONE 11/14 2100 DC 11/14 IV 11/14 2100 2110 Ezetimibe 10 MG DAILY 11/15 1000 AC 11/15 PO 1025 Losartan Potassium 25 MG DAILY 11/15 1000 AC 11/15 PO 1025 Methylprednisolone 0 .STK-MED ONE 11/14 2116 DC .ROUTE Methylprednisolone 125 MG ONCE ONE 11/14 2114 DC 11/14 IV 11/14 Metoprolol Succinate 50 MG DAILY 11/15 1000 AC 11/15 PO 1025 Morphine Sulfate 2 MG Q4P PRN 11/14 2244 AC IV Nortriptyline HCl 175 MG QPM 11/14 2300 AC 11/14 PO 2328 Sodium Chloride 500 ML BOLUS ONE 11/14 2030 DC 11/14 IV 11/14 Last 24 Hrs of Lab/Brian Results Last 24 Hrs of Labs/Mics: Laboratory Tests 11/15/17 0556: Anion Gap 10, Estimated GFR > 60, BUN/Creatinine Ratio 21.3, CBC w Diff NO MAN DIFF REQ, RBC 3.87 L, MCV 85.7, MCH 28.2, MCHC 33.0, RDW 14.2, MPV 7.0 L, Gran % 78.5 H, Lymphocytes % 19.9 L, Monocytes % 1.4 L, Eosinophils % 0, Basophils % 0.2, Absolute Granulocytes 8.9 H, Absolute Lymphocytes 2.3, Absolute Monocytes 0.2, Absolute Eosinophils 0, Absolute Basophils 0 11/14/172124: Lactic Acid 1.5 11/14/172114: Urine Color YEL, Urine Clarity CLDY H, Urine pH 6.0, Ur Specific [place] 1.020, Urine Protein NEG, Urine Ketones NEG, Urine Nitrite POS H, Urine Bilirubin NEG, Urine Urobilinogen 1.0, Ur Leukocyte Esterase MOD H, Ur Microscopic SEDIMENT EXAMINED, Urine RBC 10-15 H, Urine WBC 50-75 H, Ur Epithelial Cells FEW, Urine Bacteria PACKD H, Urine Mucus FEW, Urine Hemoglobin LARGE H, Urine Glucose NEG 11/14/171827: Lactic Acid 2.9 H 11/14/171827: Anion Gap 15, Estimated GFR > 60, BUN/Creatinine Ratio 19.0, Glucose 166 H, Hemoglobin A1c Pending, Calcium 8.8, Magnesium 1.8, Total Bilirubin 0.6, AST 38, ALT 32, Alkaline Phosphatase 108, Troponin I 0.02, Elp-L-Zzsazzpmwjr Pept 1860 H, Total Protein 7.7, Albumin 3.6, Globulin 4.1, Albumin/Globulin Ratio 0.9 L, D-Dimer High Sensitivty 1024 H, CBC w Diff NO MAN DIFF REQ, RBC 4.22 L, MCV 86.7, MCH 27.7, MCHC 32.0 L, RDW 14.1, MPV 7.4, Gran % 67.7, Lymphocytes % 22.1 , Monocytes % 8.1, Eosinophils % 1.7, Basophils % 0.4, Absolute Granulocytes 9.5 H, Absolute Lymphocytes 3.1, Absolute Monocytes 1.1 H, Absolute Eosinophils 0.2, Absolute Basophils 0.1, Virus Culture Pending Microbiology 11/14 2299 URINE ROUT: Urine Culture - [facility] 11/14 2299 LOWER RESP: Respiratory Culture - [facility] 11/14 2299 LOWER RESP: Gram Stain - [facility] 11/14 1901 BLOOD: Blood Culture - RES 11/14 184 BLOOD: Blood Culture - RES 11/14 1827 NASOPHARYN: Influenza Virus A & B Rapid Smear - COMP Assessment/Plan Assessment: his is an 82-year-old gentleman with past medical history significant for CAD status post CABG and stenting, depression, atrial fibrillation, hypertension, hyperlipidemia, AAA with endovascular stenting, pulmonary fibrosis, who comes in for chief complaint of shortness of breath after running out of his baseline 2 liters of oxygen. In ED he was found to be febrile up to 100.8, tachycardic up to 114, with a white count of 14. He was admitted to telemetry for further evaluation and management Plan: Hypoxia: Patient is saturating well on 2 L of nasal O2. Vital stable. Chest x-ray shows chronic interstitial pulmonary fibrosis, cardiomegaly and chronically enlarged pulmonary arteries. His shortness of breath is most likely secondary due to he ran out of his oxygen. We'll continue monitoring his vitals. Of note patient got 1 dose of ceftriaxone, azithromycin and Tamiflu in ED. We will follow up with blood culture, sputum culture. Urine was positive for nitrite with many bacteria. Patient is asymptomatic. Patient is afebrile since admission. We will follow up with urine culture. AFIB: Pt has hx of Afib. Has pacer and defibrillator placed. EKG shows paced complexes with rate 112. * Con't eliquis * Metoprolol Succinate Depression: * Con't Nortryptaline 175mg HTN: * Con't Candesartan HLD: * Con't Zetia * Con't Statin Problem List: 1. Hypoxia Pain Ratin Pain Location: NONE Pain Goal: Remain pain free Pain Plan: TYLENOL Tomorrow's Labs & Rationales: CBC
[2017-11-15 11:19] VITALS: BP 130/77
[2017-11-15 19:02] VITALS: BP 120/72
[2017-11-15 23:08] VITALS: BP 116/80
[2017-11-16 06:39] VITALS: BP 100/50
--- NOTE | 2017-11-16 07:07 | PN- Housestaff ---
Meme PARKS,Doris 11/16/17 0706: Subjective Follow-up For: Hypoxia Complaints: no complaints Tele-Events Since Last Visit: sinus pacing heart rate 81 Subjective: Patient was seen at bedside today. He is on 2.5 L of oxygen. He saturating at 97. No overnight events. He offers no complaints. He is eager to go home today. He denies chest pain, chest pressure, shortness of breath. Review of Systems Constitutional: Reports: no symptoms. Cardiovascular: Reports: no symptoms. Respiratory: Reports: no symptoms. Gastrointestinal: Reports: no symptoms. Genitourinary: Reports: no symptoms. Musculoskeletal: Reports: no symptoms. Objective Last 24 Hrs of Vital Signs/I&O Vital Signs Date Time Temp Pulse Resp B/P B/P Pulse O2 O2 Flow FiO2 Mean Ox Delivery Rate 11/16 0828 Nasal 3.0L Cannula 11/16 0822 81 100/50 11/16 0822 81 100/50 11/16 0639 97.9 81 24 100/50 94 Nasal Cannula 11/15 2308 97.3 79 24 116/80 97 11/15 2150 Nasal 3.0L Cannula 11/15 1902 97.6 85 22 120/72 93 11/15 1718 97.3 79 18 129/71 98 Nasal 3.0L Cannula 11/15 1521 97.6 77 18 124/75 97 Nasal 3.0L Cannula 11/15 1119 97.5 85 18 130/77 98 Room Air 11/15 1117 97.5 85 18 130/77 98 Room Air Intake & Output 11/16 1600 11/16 0800 11/16 0000 Intake Total 200 300 Output Total Balance 200 300 Intake, Oral 200 300 Physical Exam General Appearance: Alert, Oriented X3, Cooperative, No Acute Distress Skin: No Rashes HEENT: PERRLA, EOMI Neck: Supple, No JVD Cardiovascular: Regular Rate, Normal S1, Normal S2, No Murmurs Lungs: Clear to Auscultation Abdomen: Soft, No Tenderness, No Hepatospenomegaly Neurological: Strength at 5/5 X4 Ext, Normal Tone, Sensation Intact Extremities: No Cyanosis, No Edema, Normal Pulses Current Medications: Current Medications Sig/Sulaiman Start time Last Medication Dose Route Stop Time Status Admin Acetaminophen 650 MG Q6P PRN 11/14 2245 AC PO Acetaminophen 1,000 MG Q6P PRN 11/14 2244 AC IV Apixaban 5 MG BID 11/14 2243 AC 11/16 PO 0821 Aspirin Buffered 81 MG QPM 11/15 2200 AC 11/15 PO 2124 Atorvastatin Calcium 20 MG 1700 11/15 1700 AC 11/15 PO 1749 Ezetimibe 10 MG DAILY 11/15 1000 AC 11/16 PO 0822 Losartan Potassium 25 MG DAILY 11/15 1000 AC 11/16 PO 0822 Metoprolol Succinate 50 MG DAILY 11/15 1000 AC 11/16 PO 0822 Morphine Sulfate 2 MG Q4P PRN 11/14 2244 AC IV Nortriptyline HCl 175 MG QPM 11/14 2300 AC 11/15 PO 212 Last 24 Hrs of Lab/Brian Results Last 24 Hrs of Labs/Mics: Laboratory Tests 11/16/17605: CBC w Diff NO MAN DIFF REQ, RBC 3.84 L, MCV 87.1, MCH 28.4, MCHC 32.6 L, RDW 13.9, MPV 7.9, Gran % 71.8, Lymphocytes % 20.2 L, Monocytes % 7.1, Eosinophils % 0.5, Basophils % 0.4, Absolute Granulocytes 12.0 H, Absolute Lymphocytes 3.4, Absolute Monocytes 1.2 H, Absolute Eosinophils 0.1, Absolute Basophils 0.1 Assessment/Plan Assessment: his is an 82-year-old gentleman with past medical history significant for CAD status post CABG and stenting, depression, atrial fibrillation, hypertension, hyperlipidemia, AAA with endovascular stenting, pulmonary fibrosis, who comes in for chief complaint of shortness of breath after running out of his baseline 2 liters of oxygen. In ED he was found to be febrile up to 100.8, tachycardic up to 114, with a white count of 14. He was admitted to telemetry for further evaluation and management Plan: Hypoxia: Patient is saturating well on 2.5 L of nasal O2. Vital stable. Chest x-ray shows chronic interstitial pulmonary fibrosis, cardiomegaly and chronically enlarged pulmonary arteries. His shortness of breath is most likely secondary due to he ran out of his oxygen. We'll continue monitoring his vitals. Of note patient got 1 dose of ceftriaxone, azithromycin and Tamiflu in ED. We will follow up with blood culture, sputum culture. Urine was positive for nitrite with many bacteria. Patient is asymptomatic. Patient is afebrile since admission. Urine culture no growth after 1 day. AFIB: Pt has hx of Afib. Has pacer and defibrillator placed. EKG shows paced complexes with rate 112. * Con't eliquis * Metoprolol Succinate Depression: * Con't Nortryptaline 175mg HTN: * Con't Candesartan HLD: * Con't Zetia * Con't Statin Problem List: 1. Hypoxia Pain Ratin Pain Location: none Pain Goal: Remain pain free Pain Plan: tylenol, Tomorrow's Labs & Rationales: none Keyon Lr MD 11/16/17 1601: Attending MD Review Statement Attending Statement Attending MD Statement: examined this patient, discuss w/resident/PA/EXTENSION AGENT, discussed with family, reviewed EMR data (avail), discussed with case mgmt, amended to note Attending Assessment/Plan: Mr. Webb continues to be short of breath with minimal exertion. Oxygen saturation levels are satisfactory on 2 L of nasal cannula oxygen. Pulmonary exam is notable for diffuse fine rales but with some findings of expiratory squeaks and rhonchi at the left base posteriorly. We will ask for the consultations mentioned previously today and in the interim give a trial of 20 mg of furosemide intravenously and monitor his renal function, electrolytes, and respiratory status.
[2017-11-16 08:34] LABS: ABSOLUTE BASOPHIL COUNT 0.1 /CUMM (0.0-0.2); ABSOLUTE EOSINOPHIL COUNT 0.1 /CUMM (0.0-0.7); ABSOLUTE LYMPH COUNT 3.4 /CUMM (1.2-3.4); ABSOLUTE MONOCYTE COUNT 1.2 /CUMM (0.10-0.60); BASOPHIL % 0.4 % (0.0-2.0); EOSINOPHIL % 0.5 % (0-5); GRANULOCYTE % 71.8 % (42.2-75.2); HEMATOCRIT 33.5 % (42-52); MEAN CORPUSCULAR HGB 28.4 PG (27.0-31.0); MEAN CORPUSCULAR HGB CONC 32.6 G/DL (33.0-37.0); MEAN CORPUSCULAR VOLUME 87.1 FL (80.0-94.0); MEAN PLATELET VOLUME 7.9 FL (7.4-10.4); PLATELET COUNT 183 /CUMM (130-400); RBC DISTRIBUTION WIDTH 13.9 % (11.5-14.5); RED BLOOD CELL CT 3.84 /CUMM (4.70-6.10); WHITE BLOOD CELL COUNT 16.7 /CUMM (4.8-10.8)
--- NOTE | 2017-11-16 10:44 | Patient Discharge Instructions ---
Discharge Instructions General Discharge Information You were seen/treated for: Hypoxia Watch for these problems: In case of chest pain, chest pressure, nausea, vomiting, abdominal pain shortness of breath please go to the nearest ER Special Instructions: Please follow-up with your primary care provider within 1-2 weeks of discharge. Please follow-up with your student career development specialist within 1-2 weeks of discharge Please follow-up with your piece meat trimmer within 1-2 weeks of discharge Diet Continue normal diet: No Recommended Diet: Heart Healthy Activity Full Activity/No Limits: No Activity Self Limited: Yes Acute Coronary Syndrome Inclusion Criteria At DC or during hospital stay patient has or had the following: ACS DIAGNOSIS No Discharge Core Measures Meds if any: Prescribed or Continued at Discharge Meds if any: NOT Prescribed or Continued at Discharge Congestive Heart Failure Inclusion Criteria At DC or during hospital stay patient has or had the following: CHF DIAGNOSIS No Discharge Core Measures Meds if any: Prescribed or Continued at Discharge Meds if any: NOT Prescribed or Continued at Discharge Cerebrovascular accident Inclusion Criteria At DC or during hospital stay patient has or had the following: CVA/TIA Diagnosis No Discharge Core Measures Meds if any: Prescribed or Continued at Discharge Meds if any: NOT Prescribed or Continued at Discharge Venous thromboembolism Inclusion Criteria VTE Diagnosis No VTE Type NONE VTE Confirmed by (Test) NONE Discharge Core Measures - Per Current guidelines, there needs to be overlap - treatment for the first 5 days of Warfarin therapy. - If discharged on Warfarin prior to 5 days of - overlap therapy, the patient will need to be - assessed for post discharge needs including - *Post discharge parental anticoagulation - *Warfarin and/or parental anticoagulation education - *Follow up date to check INR post discharge At least 5 days overlap therapy as Inpatient No Meds if any: Prescribed or Continued at Discharge Note: Overlap Therapy is Warfarin and Anticoagulant Meds if any: NOT Prescribed or Continued at Discharge
[2017-11-16 14:14] VITALS: BP 118/60
--- NOTE | 2017-11-16 15:53 | Admission Certification ---
Admission Certification Certification Statement - As attending physician, I certify that at the time of - admission, based on clinical presentation, severity of - symptoms, need for further diagnostic testing and - therapeutic interventions, and risk of adverse outcomes - without in-hospital treatment, in my clinical assessment, - this patient requires an acute hospital stay for a minimum - of two nights or longer. I have also considered psychsocial - factors such as support system, advanced age, financial - issues, cognitive issues, and failed out-patient treatments, - past re-admission history, safety of patient, and lack of - compliance as applicable. Specific rationale supporting this admission is: Treatment of acute hypoxemic respiratory failure
[2017-11-16 22:48] VITALS: BP 114/76
[2017-11-17 06:33] VITALS: BP 144/80
--- NOTE | 2017-11-17 07:14 | PN- Housestaff ---
Meme PARKS,Doris 11/17/17 0714: Subjective Follow-up For: Hypoxia Complaints: no complaints Tele-Events Since Last Visit: Sinus pacing heart rate 82 Subjective: Patient was seen and examined at bedside. Patient was sent in and this bed and watching TV with 2 L of oxygen comfortably. He offers no complaints. He is eager to go home today. He denies chest pain, chest pressure, shortness of breath. Review of Systems Constitutional: Reports: no symptoms. Cardiovascular: Reports: no symptoms. Respiratory: Reports: no symptoms. Gastrointestinal: Reports: no symptoms. Genitourinary: Reports: no symptoms. Musculoskeletal: Reports: no symptoms. Objective Last 24 Hrs of Vital Signs/I&O Vital Signs Date Time Temp Pulse Resp B/P B/P Pulse O2 O2 Flow FiO2 Mean Ox Delivery Rate 11/17 0827 72 126/60 11/17 0815 97.9 72 20 126/60 Nasal 2.0L Cannula 11/17 0800 Nasal 2.0L Cannula 11/17 0633 97.8 90 12 144/80 96 Nasal 2.0L Cannula 11/17 0000 Nasal 2.0L Cannula 11/16 2248 97.7 42 26 114/76 97 11/16 2038 94 Nasal 2.0L Cannula 11/16 1414 97.9 58 20 118/60 95 Nasal 2.0L Cannula 11/16 1146 Nasal 2.0L Cannula 11/16 1146 95 Nasal 2.0L Cannula Intake & Output 11/17 1600 11/17 0800 11/17 0000 Intake Total 320 280 Output Total Balance 320 280 Intake, Oral 320 280 Physical Exam General Appearance: Alert, Oriented X3, Cooperative, No Acute Distress Skin: No Rashes HEENT: PERRLA Neck: No JVD, No thryomegaly, +2 Carotid Pulse wo Bruit Cardiovascular: Normal S1, Normal S2, No Murmurs Lungs: B/L RALES Abdomen: Soft, No Tenderness, No Hepatospenomegaly Neurological: Strength at 5/5 X4 Ext, Normal Tone, Sensation Intact Extremities: No Edema Current Medications: Current Medications Sig/Sulaiman Start time Last Medication Dose Route Stop Time Status Admin Acetaminophen 650 MG Q6P PRN 11/14 2244 AC PO Acetaminophen 1,000 MG Q6P PRN 11/14 2244 AC IV Albuterol Sulfate 3 ML Q4P PRN 11/16 1145 AC 11/16 INH 1135 Apixaban 5 MG BID 11/14 2243 AC 11/17 PO 0827 Aspirin Buffered 81 MG QPM 11/15 2200 AC 11/16 PO 2150 Atorvastatin Calcium 20 MG 1700 11/15 1700 AC 11/16 PO 1620 Docusate Sodium 100 MG DAILY NEEDED PRN 11/16 2130 AC 11/16 PO 2151 Ezetimibe 10 MG DAILY 11/15 1000 AC 11/17 PO 0827 Furosemide 20 MG ONCE ONE 11/16 1545 DC 11/16 IV 11/16 1546 1620 Losartan Potassium 25 MG DAILY 11/15 1000 AC 11/17 PO 0827 Metoprolol Succinate 50 MG DAILY 11/15 1000 AC 11/17 PO 0827 Morphine Sulfate 2 MG Q4P PRN 11/14 2244 AC IV Nortriptyline HCl 175 MG QPM 11/14 2300 AC 11/16 PO 2151 Polyethylene Glycol 17 GM DAILY PRN 11/16 213 AC 11/17 PO 0825 Senna 187 MG AT BEDTIME PRN 11/16 2129 AC 11/16 PO 215 Last 24 Hrs of Lab/Brian Results Last 24 Hrs of Labs/Mics: Laboratory Tests 11/17/17 0653: Anion Gap 10, Estimated GFR > 60, BUN/Creatinine Ratio 23.6, CBC w Diff NO MAN DIFF REQ, RBC 3.96 L, MCV 87.7, MCH 28.5, MCHC 32.5 L, RDW 14.4, MPV 7.5, Gran % 50.1, Lymphocytes % 35.4, Monocytes % 8.6, Eosinophils % 5.1 H, Basophils % 0.8, Absolute Granulocytes 5.2, Absolute Lymphocytes 3.6 H, Absolute Monocytes 0.9 H, Absolute Eosinophils 0.5, Absolute Basophils 0.1 Assessment/Plan Assessment: his is an 82-year-old gentleman with past medical history significant for CAD status post CABG and stenting, depression, atrial fibrillation, hypertension, hyperlipidemia, AAA with endovascular stenting, pulmonary fibrosis, who comes in for chief complaint of shortness of breath after running out of his baseline 2 liters of oxygen. In ED he was found to be febrile up to 100.8, tachycardic up to 114, with a white count of 14. He was admitted to telemetry for further evaluation and management Plan: Hypoxia: Patient is saturating well on 2 L of nasal O2. Vital stable. Chest x-ray shows chronic interstitial pulmonary fibrosis, cardiomegaly and chronically enlarged pulmonary arteries. His shortness of breath is most likely secondary due to he ran out of his oxygen. We'll continue monitoring his vitals. Of note patient got 1 dose of ceftriaxone, azithromycin and Tamiflu in ED. We will follow up with blood culture, sputum culture. Urine was positive for nitrite with many bacteria. Patient is asymptomatic. Patient is afebrile since admission. Urine culture no growth after 1 day. Will send him with home oxygen 2 L. Patient was evaluated by pulmonology. Suggested to continue the current management. Patient will be followed by cardiology today. AFIB: Pt has hx of Afib. Has pacer and defibrillator placed. EKG shows paced complexes with rate 112. * Con't eliquis * Metoprolol Succinate Depression: * Con't Nortryptaline 175mg HTN: * Con't Candesartan HLD: * Con't Zetia * Con't Statin Problem List: 1. Hypoxia Pain Ratin Pain Location: NONE Pain Goal: Remain pain free Pain Plan: TYLENOL Tomorrow's Labs & Rationales: CBC,BEP Adeline PARKS,[place]on 11/17/17 1307: Attending MD Review Statement Attending Statement Attending MD Statement: examined this patient, discuss w/resident/PA/DATABASE TECHNICIAN, agreed w/resident/PA/DATABASE TECHNICIAN, reviewed EMR data (avail), discussed with case mgmt, amended to note Attending Assessment/Plan: Mr. Webb was interviewed and examined. His EMR was reviewed. He feels that he is essentially at his baseline but does require chronic oxygen. Remains afebrile with stable vital signs. Oxygen saturations are stable in 2 L via nasal cannula. He is in no acute distress. Pulmonary exam shows diffuse rales with few wheezes which is also his baseline. Cardiac exam is benign. Laboratory studies are reviewed and are satisfactory. Inputs are appreciated from Drs. Morfin and Amador. Mr. Webb is stable for discharge at this point. We are continuing his maintenance medications and his oxygen. In addition I would ask that he be given and oxygen saturation meter so he may monitor this parameter and adjust his oxygen at appropriately. His CMR is reviewed and a transition visit will be scheduled within 7-14 days.
[2017-11-17 08:07] LABS: ABSOLUTE BASOPHIL COUNT 0.1 /CUMM (0.0-0.2); ABSOLUTE EOSINOPHIL COUNT 0.5 /CUMM (0.0-0.7); ABSOLUTE GRANULOCYTE CT 5.2 /CUMM (1.4-6.5); ABSOLUTE LYMPH COUNT 3.6 /CUMM (1.2-3.4); ABSOLUTE MONOCYTE COUNT 0.9 /CUMM (0.10-0.60); BASOPHIL % 0.8 % (0.0-2.0); EOSINOPHIL % 5.1 % (0-5); HEMATOCRIT 34.8 % (42-52); MEAN CORPUSCULAR HGB 28.5 PG (27.0-31.0); MEAN CORPUSCULAR HGB CONC 32.5 G/DL (33.0-37.0); MEAN CORPUSCULAR VOLUME 87.7 FL (80.0-94.0); MEAN PLATELET VOLUME 7.5 FL (7.4-10.4); PLATELET COUNT 197 /CUMM (130-400); RBC DISTRIBUTION WIDTH 14.4 % (11.5-14.5); RED BLOOD CELL CT 3.96 /CUMM (4.70-6.10); WHITE BLOOD CELL COUNT 10.3 /CUMM (4.8-10.8)
--- NOTE | 2017-11-17 08:13 | Cons- Pulmonary ---
General Information and HPI Consulting Request Date of Consult: 11/17/17 Requested By: Adeline Reason for Consult: Shortness of breath History of Present Illness: Patient is 82-year-old with chronic pulmonary fibrosis refusing treatment on low -flow oxygen admitted with increasing shortness breath after having run out of oxygen. He has underlying coronary artery disease and atrial fibrillation. He' s had no fever or chills sputum production. His history status has returned to baseline now on low-flow oxygen Allergies/Medications Allergies: Coded Allergies: NO KNOWN ALLERGIES (10/30/11) Home Med List: Albuterol Sulfate (Proair Hfa) 90 MCG HFA.AER.AD 2 PUF INH 4XDAILY RESP. ( Reported) Apixaban (Eliquis) 5 MG TABLET 1 TAB PO BID BLOOD THINNER (Reported) Aspirin (Ecotrin*) 81 MG TABLET.DR 1 TAB PO QPM HEART/BLOOD (Reported) Atorvastatin Calcium 20 MG TABLET 1 TAB PO DAILY CHOLESTEROL (Reported) Candesartan Cilexetil 4 MG TABLET 1 TAB PO DAILY BP (Reported) Ezetimibe (Zetia) 10 MG TABLET 1 TAB PO DAILY CHOLESTEROL (Reported) Magnesium Oxide (Magnesium) (Unknown Strength) CAPSULE (Unknown Dose) PO DAILY SUPPLEMENT (Reported) Metoprolol Succinate 50 MG TAB.ER.24H 1 TAB PO DAILY HEART/BP (Reported) Nortriptyline HCl 75 MG CAPSULE 175 MG PO QHS DEPRESSION (Reported) Review of Systems Review of Systems Constitutional: Denies: chills, fever. Cardiovascular: Denies: chest pain, edema. Respiratory: Reports: cough, short of breath. Denies: hemoptysis, sputum production. GI: Denies: abdominal pain, diarrhea, melena. 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 Home Smoking Status: Former Smoker ETOH Use: denies use Illicit Drug Use: denies illicit drug use Exam & Diagnostic Data Last 24 Hrs of Vital Signs/I&O Vital Signs Date Time Temp Pulse Resp B/P B/P Pulse O2 O2 Flow FiO2 Mean Ox Delivery Rate 11/17 0633 97.8 90 12 144/80 96 Nasal 2.0L Cannula 11/17 0000 Nasal 2.0L Cannula 11/16 2248 97.7 42 26 114/76 97 11/16 2038 94 Nasal 2.0L Cannula 11/16 1414 97.9 58 20 118/60 95 Nasal 2.0L Cannula 11/16 1146 Nasal 2.0L Cannula 11/16 1146 95 Nasal 2.0L Cannula 11/16 0828 Nasal 3.0L Cannula 11/16 0822 81 100/50 11/16 0822 81 100/50 Intake & Output 11/17 1600 11/17 0800 11/17 0000 Intake Total 320 280 Output Total Balance 320 280 Intake, Oral 320 280 Oxygen saturation 96% on 2 L H ENT exam shows no adenopathy exam of his chest shows chronic crackles cardiac exam shows regular paced rhythm abdomen is soft nontender there's no edema Last 48 Hrs of Labs/Brian: Laboratory Tests 11/17/17 0653: Anion Gap 10, Estimated GFR > 60, BUN/Creatinine Ratio 23.6, CBC w Diff Pending, WBC Pending, RBC Pending, Hgb Pending, Hct Pending, MCV Pending, MCH Pending, MCHC Pending, RDW Pending, Plt Count Pending, MPV Pending 11/16/17 0606: CBC w Diff NO MAN DIFF REQ, RBC 3.84 L, MCV 87.1, MCH 28.4, MCHC 32.6 L, RDW 13.9, MPV 7.9, Gran % 71.8, Lymphocytes % 20.2 L, Monocytes % 7.1, Eosinophils % 0.5, Basophils % 0.4, Absolute Granulocytes 12.0 H, Absolute Lymphocytes 3.4, Absolute Monocytes 1.2 H, Absolute Eosinophils 0.1, Absolute Basophils 0.1 Assessment/Plan Impression/Plan: 82-year-old with chronic pulmonary fibrosis thought secondary to possible hypersensitivity pneumonitis versus usual interstitial pneumonitis who has refused treatment. He is chronically oxygen dependent. He appears at baseline now again on low-flow oxygen. Recommendations: Continue oxygen at 2 L. There is no evidence of acute infection. Cardiac status appears at baseline. Patient can be followed in the outpatient setting Consult Acknowledgment - Thank you for your consult request.
[2017-11-17 08:15] VITALS: BP 126/60
[2017-11-17 08:56] LABS: GRANULOCYTE % 50.1 % (42.2-75.2)
--- NOTE | 2017-11-17 11:43 | Cons- Cardiology ---
General Information and HPI Consulting Request Date of Consult: 11/17/17 Requested By: Adeline PARKS,Keyon Dunlap Reason for Consult: Shortness of breath Source of Information: patient, old records Exam Limitations: no limitations History of Present Illness: The patient is an 82-year-old male with a history of coronary artery disease post coronary bypass surgery in 1993 followed by a stent in 1994, ischemic cardiomyopathy now with normalized ejection fraction of 50% by echo May 2016 status post AICD, moderate mitral regurgitation, atrial fibrillation on Eliquis, pulmonary fibrosis refusing treatment followed by Dr. Brooks on home oxygen who now presents with shortness of breath. Patient states that he normally has dyspnea but it is stable. He is able to do his normal activities slowly. On the day of admission he went to [employer] and upon leaving he ran out of oxygen. He became acutely short of breath, turned loredo, and presented to the emergency room for evaluation. From the cardiac standpoint he denied chest pain or palpitations. He states he has been compliant with his medications. Allergies/Medications Allergies: Coded Allergies: NO KNOWN ALLERGIES (10/30/11) Home Med List: Albuterol Sulfate (Proair Hfa) 90 MCG HFA.AER.AD 2 PUF INH 4XDAILY RESP. ( Reported) Apixaban (Eliquis) 5 MG TABLET 1 TAB PO BID BLOOD THINNER (Reported) Aspirin (Ecotrin*) 81 MG TABLET.DR 1 TAB PO QPM HEART/BLOOD (Reported) Atorvastatin Calcium 20 MG TABLET 1 TAB PO DAILY CHOLESTEROL (Reported) Candesartan Cilexetil 4 MG TABLET 1 TAB PO DAILY BP (Reported) Ezetimibe (Zetia) 10 MG TABLET 1 TAB PO DAILY CHOLESTEROL (Reported) Magnesium Oxide (Magnesium) (Unknown Strength) CAPSULE (Unknown Dose) PO DAILY SUPPLEMENT (Reported) Metoprolol Succinate 50 MG TAB.ER.24H 1 TAB PO DAILY HEART/BP (Reported) Nortriptyline HCl 75 MG CAPSULE 175 MG PO QHS DEPRESSION (Reported) Current Medications: Current Medications Sig/Sulaiman Start time Last Medication Dose Route Stop Time Status Admin Acetaminophen 650 MG Q6P PRN 11/14 2245 AC PO Acetaminophen 1,000 MG Q6P PRN 11/14 2245 AC IV Albuterol Sulfate 3 ML Q4P PRN 11/16 1145 AC 11/16 INH 1135 Apixaban 5 MG BID 11/14 2243 AC 11/17 PO 08 Aspirin Buffered 81 MG QPM 11/15 2200 AC 11/16 PO 2150 Atorvastatin Calcium 20 MG 1700 11/15 1700 AC 11/16 PO 1620 Docusate Sodium 100 MG DAILY NEEDED PRN 11/16 2130 AC 11/16 PO 215 Ezetimibe 10 MG DAILY 11/15 1000 AC 11/17 PO 0827 Furosemide 20 MG ONCE ONE 11/16 1545 DC 11/16 IV 11/16 1546 1620 Losartan Potassium 25 MG DAILY 11/15 1000 AC 11/17 PO 0827 Metoprolol Succinate 50 MG DAILY 11/15 1000 AC 11/17 PO 0827 Morphine Sulfate 2 MG Q4P PRN 11/14 2245 AC IV Nortriptyline HCl 175 MG QPM 11/14 2300 AC 11/16 PO 215 Polyethylene Glycol 17 GM DAILY PRN 11/16 213 AC 11/17 PO 08 Senna 187 MG AT BEDTIME PRN 11/16 2129 AC 11/16 PO 215 Review of Systems Review of Systems: Eyes no blurred or double vision Ears no deafness or ringing Nose and throat no recurrent sinusitis Lungs per history of present illness Heart per history of present illness Abdomen no nausea vomiting Musculoskeletal occasional muscle and joint pains Psych no anxiety or depression Neuro without recurrent headache or seizures Endocrine no heat or cold intolerance Past History Travel History Traveled to [place] past 21 day No Medical History Blood Transfusion Hx: No Neurological: NONE EENT: NONE Cardiovascular: aortic aneurysm, AFIB, hypertension, hyperlipidemia, CARDIAC BIPASS L SIDE PACER/DEFIB Respiratory: bronchitis Gastrointestinal: constipation, HERNIA L GROIN Hepatic: NONE Renal: NONE Musculoskeletal: COMPRESSION FX Psychiatric: depression Endocrine: NONE Blood Disorders: NONE Cancer(s): NONE 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 Home Smoking Status: Former Smoker ETOH Use: denies use Illicit Drug Use: denies illicit drug use Exam & Diagnostic Data Vital Signs and I&O Vital Signs Date Time Temp Pulse Resp B/P B/P Pulse O2 O2 Flow FiO2 Mean Ox Delivery Rate 11/17 0827 72 126/60 11/17 0815 97.9 72 20 126/60 Nasal 2.0L Cannula 11/17 0800 Nasal 2.0L Cannula 11/17 0633 97.8 90 12 144/80 96 Nasal 2.0L Cannula 11/17 0000 Nasal 2.0L Cannula 11/16 2248 97.7 42 26 114/76 97 11/16 2038 94 Nasal 2.0L Cannula 11/16 1414 97.9 58 20 118/60 95 Nasal 2.0L Cannula 11/16 1146 Nasal 2.0L Cannula 11/16 114 95 Nasal 2.0L Cannula Intake & Output 11/17 0800 11/17 0000 11/16 0811/16 0000 Intake Total 320 280 400 200 300 Output Total Balance 320 280 400 200 300 Intake, Oral 320 280 400 200 300 Physical Exam: Patient is a well-developed well-nourished male appearing in no acute distress HEENT is unremarkable Neck is supple there is no JVD Lungs crackles bilaterally throughout all lung engle Heart regular rhythm S1 and S2 are normal no gallops or rubs 2/6 systolic ejection murmur left sternal border Abdomen bowel sounds positive Extremities without edema Labs/Brian Results: Laboratory Tests 11/17 11/16 0653 0606 Chemistry Sodium (137 - 145 mmol/L) 142 Potassium (3.5 - 5.1 mmol/L) 4.5 Chloride (98 - 107 mmol/L) 101 Carbon Dioxide (22 - 30 mmol/L) 32 H Anion Gap (5 - 16) 10 BUN (9 - 20 mg/dL) 26 H Creatinine (0.7 - 1.2 mg/dL) 1.1 Estimated GFR (>60 ml/min) > 60 BUN/Creatinine Ratio (7 - 25 %) 23.6 Hematology CBC w Diff NO MAN DIFF REQ NO MAN DIFF REQ WBC (4.8 - 10.8 /CUMM) 10.3 16.7 H RBC (4.70 - 6.10 /CUMM) 3.96 L 3.84 L Hgb (14.0 - 18.0 G/DL) 11.3 L 10.9 L Hct (42 - 52 %) 34.8 L 33.5 L MCV (80.0 - 94.0 FL) 87.7 87.1 MCH (27.0 - 31.0 PG) 28.5 28.4 MCHC (33.0 - 37.0 G/DL) 32.5 L 32.6 L RDW (11.5 - 14.5 %) 14.4 13.9 Plt Count (130 - 400 /CUMM) 197 183 MPV (7.4 - 10.4 FL) 7.5 7.9 Gran % (42.2 - 75.2 %) 50.1 71.8 Lymphocytes % (20.5 - 51.1 %) 35.4 20.2 L Monocytes % (1.7 - 9.3 %) 8.6 7.1 Eosinophils % (0 - 5 %) 5.1 H 0.5 Basophils % (0.0 - 2.0 %) 0.8 0.4 Absolute Granulocytes (1.4 - 6.5 /CUMM) 5.2 12.0 H Absolute Lymphocytes (1.2 - 3.4 /CUMM) 3.6 H 3.4 Absolute Monocytes (0.10 - 0.60 /CUMM) 0.9 H 1.2 H Absolute Eosinophils (0.0 - 0.7 /CUMM) 0.5 0.1 Absolute Basophils (0.0 - 0.2 /CUMM) 0.1 0.1 Diagnostic Data EKG Results Ventricular paced rhythm CXR Results IMPRESSION: 1. Chronic interstitial pulmonary fibrosis. 2. No overt evidence of superimposed edema or acute consolidation. 3. Cardiomegaly and chronically enlarged pulmonary arteries -- as may be seen in pulmonary arterial hypertension. Other Results CT of the chest IMPRESSION: 1. No acute pulmonary embolism. 2. No convincing superimposed acute cardiopulmonary process. 3. Extensive subpleural honeycombing significantly increased compared to 2015 concerning for progression of usual interstitial pneumonia. Persistent mild underlying centrilobular emphysema. 4. Enlarged main pulmonary artery suggesting underlying pulmonary hypertension. 5. Cholelithiasis. 6. Stable appearance of multiple compression fractures involving the thoracic spine, some of which have been treated with kyphoplasty. VTE: negative Assessment/Plan Assessment/Plan 1. Coronary disease by history status post coronary bypass surgery followed by stent stable. No evidence for an acute ischemic event with negative troponin 2. History of ischemic cardiomyopathy now with a normalized ejection fraction of 50% status post AICD with normal device function by interrogation July 2017. No evidence of acute congestive heart failure clinically in spite of a elevated BNP. Both chest x-ray and CT scan did not suggest heart failure. 3. Atrial fibrillation by history on Eliquis 4. Hypertension by history 5. Shortness of breath due to Pulmonary fibrosis refusing treatment per Dr. Dobuler on home oxygen. Patient ran out of oxygen while he was at [employer] causing him to develop shortness of breath and hypoxia. 6. Mitral regurgitation Recommendations 1. I would continue his current medications 2. Stress importance of monitoring his oxygen level carefully. 3. I feel that the patient is stable from the cardiac standpoint and does not require any further inpatient cardiac workup. I do recommend that he follow-up in the office for repeat echocardiogram. Thank you for allowing [facility] to participate in the care of your patient. Consult Acknowledgment - Thank you for your consult request.
[2017-11-17 14:02] VITALS: BP 126/68
--- NOTE | 2017-11-24 16:14 | Discharge Summary ---
Visit Information Visit Dates Admission Date: 11/14/17 Discharge Date: 11/17/17 Hospital Course Course Attending Physician: Keyon Lr MD Primary Care Physician: Keyon Lr MD Consulting Request: 1 Consulting Specialty: Cardiology Consulting Physician: Dr. Will Gerard Reason for Consult: possible CHF Consulting Request: 2 Consulting Specialty: Pulmonary Disease Consulting Physician: Benja Landis MD Reason for Consult: shortness of breath with pulmonary fibrosis Hospital Course: Mr. Webb was admitted to the telemetry service. He was treated with supplemental oxygen and nebs. He was given initial doses of ceftriaxone and azithromycin which were discontinued when his temperature, CBC, and initial evaluation of cultures . He was also given an initial dose of methylprednisolone. He was continued on his maintenance medications. He was seen by cardiology and a trial of furosemide was initiated. This was noted to have no clinical effect. He was also seen by pulmonology who suggested that we continue his maintenance regimen. On November 17 patient was noted to be stable, felt that he had returned to his baseline, and he was able to be discharged to home. Allergies: Coded Allergies: NO KNOWN ALLERGIES (10/30/11) Significant Procedures: None Disposition Summary Disposition Principal Diagnosis: Acute on chronic respiratory failure Additional Diagnosis: IPF, CAD, atrial fibrillation, hypertension, dyslipidemia Discharge Disposition: home or self care Discharge Instructions General Discharge Information Code Status: Do Not Resucitate/Intubat Patient's Diet: Fat and salt restricted as tolerated Patient's Activity: Self-limited Follow-Up Instructions/Appts: Patient has been scheduled for a follow-up transition of care visit on November 19. Medications at Discharge Discharge Medications: Continue taking these medications: Candesartan Cilexetil (Candesartan Cilexetil) 4 MG TABLET 1 Tablet ORAL DAILY Qty = 90 Comments: Last Taken:11/17/17 Time: 8:30 AM Albuterol Sulfate (Proair Hfa) 90 MCG HFA.AER.AD 2 Puff Inhale through mouth 4XDAILY Qty = 9 Comments: NOT GIVEN WHILE IN HOSPITAL Apixaban (Eliquis) 5 MG TABLET 1 Tablet ORAL TWICE DAILY Qty = 180 Comments: Last Taken:11/17/17 Time: 8:30 AM Nortriptyline HCl (Nortriptyline HCl) 75 MG CAPSULE 175 Milligram ORAL TAKE AT BEDTIME Qty = 60 Comments: Last Taken:11/16/17 Time: 10:00 PM Metoprolol Succinate (Metoprolol Succinate) 50 MG TAB.ER.24H 1 Tablet ORAL DAILY Qty = 90 Comments: Last Taken:11/17/17 Time: 8:30 AM Atorvastatin Calcium (Atorvastatin Calcium) 20 MG TABLET 1 Tablet ORAL DAILY Qty = 90 Comments: Last Taken:11/16/17 Time: 4:30 PM Ezetimibe (Zetia) 10 MG TABLET 1 Tablet ORAL DAILY Qty = 90 Comments: Last Taken:11/17/17 Time: 8:30 AM Aspirin (Ecotrin*) 81 MG TABLET.DR 1 Tablet ORAL Every night Comments: Last Taken:11/16/17 Time: 10:00 PM Magnesium Oxide (Magnesium) (Unknown Strength) CAPSULE Unknown Dose ORAL DAILY Comments: NOT GIVEN WHILE IN HOSPITAL Copies To: Todd PARKS,Benja Ramos; Moustapha PARKS,Will Tolliver Attending MD Review Statement Documenting Attending: Adeline PARKS,Keyon Dunlap
== END 2017-11-17 14:35 | DRG 189 ==
LOC: ERH 18:12 → ERHI 22:12 → 1NO 22:12 → ENRESERV 11-15 15:00 → ENTRNSPT 11-15 17:45 → CMPTRNSPT 11-15 18:32 → 1NO 11-15 18:52 → ENPENDDIS 11-17 13:25 → ENTRNSPT 11-17 14:25 → EDTRNSPT 11-17 14:32 → EDTRNSPTSTS 11-17 14:32 → 1NO 11-17 14:35 → CMPTRNSPT 11-17 14:36
PROVIDERS: Physician Assistant Medical; Student in an Organized Health Care Education/Training Program
DX: J96.21 Acute and chronic respiratory failure with hypoxia (principal); J84.9 Interstitial pulmonary disease, unspecified; I48.91 Unspecified atrial fibrillation; J84.10 Pulmonary fibrosis, unspecified; Z99.81 Dependence on supplemental oxygen; Z79.01 Long term (current) use of anticoagulants; I25.5 Ischemic cardiomyopathy; I10 Essential (primary) hypertension; E78.5 Hyperlipidemia, unspecified; I25.10 Atherosclerotic heart disease of native coronary artery without angina pectoris; I25.2 Old myocardial infarction; Z95.1 Presence of aortocoronary bypass graft; Z95.810 Presence of automatic (implantable) cardiac defibrillator; Z87.891 Personal history of nicotine dependence; F43.21 Adjustment disorder with depressed mood; Z66 Do not resuscitate; R01.1 Cardiac murmur, unspecified; K59.00 Constipation, unspecified; I34.0 Nonrheumatic mitral (valve) insufficiency; F32.9 Major depressive disorder, single episode, unspecified; I71.4 Abdominal aortic aneurysm, without rupture; Z95.5 Presence of coronary angioplasty implant and graft
CPT/HCPCS: 1NSP; ERO; 36415; 71045; 81001; 82436; 87040; 87070; 87086; 87804; 87804-59; 93005; 93010; 96361; 96365; 96375; 99291; J0131; J0456; J0696; J1940; J2930; J7040; J7060

== ENCOUNTER 2017-12-20 21:33 | Inpatient (IN) | payer OTHER, MEDICARE ==
[~2017-12-20] VITALS: Ht 180.3 cm; Wt 125.0 kg
[~2017-12-20 21:33] MED LIST: ASPIRIN EC81 M1 PO; ATORVASTATIN CA20 M1 PO; ELIQUIS5 M1 PO; MAGNESIUM400 M1 PO; METOPROLOL SUCC50 M2 PO; NORTRIPTYLINE H25 M2 PO; NORTRIPTYLINE H75 M2 PO; PROAIR HFA8.5 GM INH; ZETIA10 M1 PO; [UNRECOGNIZED DRUG - OTHER] PO
--- NOTE | 2017-12-20 21:49 | ED GI/GU/ABDOMINAL COMPLAINT ---
History of Present Illness General Chief Complaint: Abdominal Pain/Flank Pain Stated Complaint: ABD PAIN] Source: patient Exam Limitations: no limitations Vital Signs & Intake/Output Vital Signs & Intake/Output Vital Signs Date Time Temp Pulse Resp B/P B/P Pulse O2 O2 Flow FiO2 Mean Ox Delivery Rate 12/22 0400 97 Nasal 2.0L Cannula 12/22 0000 98.3 78 24 124/66 98 Nasal 2.0L Cannula 12/22 0000 94 Nasal 2.0L Cannula 12/21 2224 94 158/86 12/21 2000 98 Nasal 2.0L Cannula 12/21 1600 96 Aerosol 30% Mask 12/21 1600 99.2 82 27 118/62 96 Aerosol 30% Mask 12/21 1449 96 Aerosol 30% Mask 12/21 1200 99 Ventilator 35% 12/21 1145 35 12/21 0800 50 12/21 0800 100 Ventilator 50% / 0800 97.3 68 16 134/70 100 Ventilator 50% ED Intake and Output 12/22 0000 05 1200 Intake Total 1420 2300 Output Total 1060 455 Balance 360 1845 Intake, IV 1300 2300 Intake, Oral 120 Number 0 Bowel Movements Output, Urine 1060 455 Patient 225 lb Weight Weight Bed scale Measurement Method Allergies Coded Allergies: NO KNOWN ALLERGIES (10/30/11) Reconcile Medications Albuterol Sulfate (Proair Hfa) 90 MCG HFA.AER.AD 2 PUF INH 4XDAILY RESP. ( Reported) Apixaban (Eliquis) 5 MG TABLET 1 TAB PO BID BLOOD THINNER (Reported) Aspirin (Ecotrin*) 81 MG TABLET.DR 1 TAB PO QPM HEART/BLOOD (Reported) Atorvastatin Calcium 20 MG TABLET 1 TAB PO DAILY CHOLESTEROL (Reported) Candesartan Cilexetil 4 MG TABLET 1 TAB PO DAILY BP (Reported) Ezetimibe (Zetia) 10 MG TABLET 1 TAB PO DAILY CHOLESTEROL (Reported) Magnesium Oxide (Magnesium) (Unknown Strength) CAPSULE (Unknown Dose) PO DAILY SUPPLEMENT (Reported) Metoprolol Succinate 50 MG TAB.ER.24H 1 TAB PO DAILY HEART/BP (Reported) Nortriptyline HCl 75 MG CAPSULE 175 MG PO QHS DEPRESSION (Reported) Triage Nurses Notes Reviewed? yes Onset: Abrupt Duration: hour(s):, constant, getting worse Timing: recent history Quality/Severity: moderate, sharpness Location: LOW BACK Radiation: LOWER ABDOMEN Activities at Onset: none No Modifying Factors: none HPI: 82-year-old male comes into the emergency room with complaints of sudden onset low back pain wrapping around to his abdomen that occurred earlier tonight. He has an extensive cardiac history. Pain is sharp. Continuous. He is on oxygen normally for pulmonary fibrosis. (Roldan Valladares) Past History Travel History Traveled to [place] past 21 day No Medical History Any Pertinent Medical History? see below for history Neurological: NONE EENT: NONE Cardiovascular: aortic aneurysm, AFIB, hypertension, hyperlipidemia, CARDIAC BIPASS L SIDE PACER/DEFIB Respiratory: bronchitis Gastrointestinal: constipation, HERNIA L GROIN Hepatic: NONE Renal: NONE Musculoskeletal: COMPRESSION FX Psychiatric: depression Endocrine: NONE Blood Disorders: NONE Cancer(s): NONE JUNIOR MEDIA BUYER/Reproductive: NONE History of MRSA: No History of VRE: No History of CDIFF: No Influenza Vaccine: 09/02/17 Surgical History Surgical History: CABG, AAA, APPEDNECTOMY Psychosocial History Who do you live with Son What is your primary language Sinhala Tobacco Use: Quit >30 days ago ETOH Use: denies use Family History Hx Contributory? No (Roldan Valladares) Review of Systems Review of Systems Constitutional: Reports: no symptoms. EENTM: Reports: no symptoms. Respiratory: Reports: no symptoms. Cardiovascular: Reports: no symptoms. GI: Reports: see HPI. Genitourinary: Reports: see HPI. Musculoskeletal: Reports: no symptoms. Skin: Reports: no symptoms. Neurological/Psychological: Reports: no symptoms. Hematologic/Endocrine: Reports: no symptoms. Immunologic/Allergic: Reports: no symptoms. All Other Systems: Reviewed and Negative (Roldan Valladares) Physical Exam Physical Exam General Appearance: well developed/nourished, alert, awake Head: atraumatic Eyes: Bilateral: normal appearance, EOMI. Ears, Nose, Throat, Mouth: hearing grossly normal, moist mucous membrane Neck: normal inspection Respiratory: no respiratory distress Gastrointestinal: soft, guarding, tenderness Back: normal inspection Extremities: normal range of motion Neurologic/Psych: awake, alert, oriented x 3 Skin: intact, normal color Core Measures ACS in differential dx? No Sepsis Present: No Sepsis Focused Exam Completed? No (Roldan Valladares) Progress Differential Diagnosis: biliary colic, bowel obstruction, diverticulitis, PUD/ GERD, pyelonephritis, SBO, ureterolithiasis, urinary retention, UTI/pyelo Plan of Care: Orders Procedure Date/time Status Clear Liquid Diet 12/22 B Active ICU LAB BUNDLE 12/22 0500 Complete CBC WITHOUT DIFFERENTIAL 12/22 0500 Complete Discontinue Nursing Interventi 12/22 UNK Active OXYGEN SETUP (GEN) 12/21 1410 Complete EXTUBATE 12/21 1410 Complete Weight 12/21 1333 Active Drains/Tubes 12/21 1333 Complete Teach/Educate 12/21 1333 Active Skin/Pressure Ulcer Assess (Sk 12/21 1333 Active Nutritional Intake, Monitor 12/21 1333 Active CIWA 12/21 1333 Complete Patient Care Conference 12/21 1333 Active VENTILATOR WEANING PARAMETERS 12/21 1325 Complete VENTILATOR PARAMETERS 12/21 1050 Complete LOWER RESPIRATORY CULTURE 12/21 1044 Active VENTILATOR PARAMETERS 12/21 0915 Complete Restraint- Medical 12/21 0812 Complete Mahmood, Insertion/Removal/Asses 12/21 0812 Complete VENTILATOR PARAMETERS 12/21 0805 Complete Turn and Reposition 12/21 0758 Active Skin Integrity Protocol 12/21 0758 Active Precautions 12/21 0758 Active Pain Treatment and Response 12/21 0758 Active Isolation 12/21 0758 Active Arterial Line, Monitor 12/21 0758 Complete ARTERIAL BLOOD GAS (GEN) 12/21 0753 Complete SPUTUM INDUCTION (GEN) 12/21 UNK Complete OXYGEN SETUP (GEN) 12/21 UNK Complete ARTERIAL BLOOD GAS (GEN) 12/21 UNK Complete Nursing Misc 12/21 UNK Active Current Medications Sig/Sulaiman Start time Last Medication Dose Stop Time Status Admin Dextrose/Sodium 1,000 ML CONTINOUS INFUSION 12/23 0330 AC 12/22 Chloride 0648 (D5-Normal Saline) Ezetimibe 10 MG DAILY 12/22 1000 AC (Zetia) Morphine Sulfate 2 MG Q2P PRN 12/22 0630 AC (MORPHINE SULFATE) Oxycodone/ 1 TAB Q4P PRN 12/22 0615 AC Acetaminophen (Percocet) Oxycodone/ 2 TAB Q4P PRN 12/22 0615 AC Acetaminophen (Percocet) Metoprolol Succinate 50 MG DAILY 12/21 2199 AC 12/21 (Toprol Xl) 2224 Nortriptyline HCl 150 MG AT BEDTIME 12/21 2199 AC 12/21 (Aventyl 50MG - 222 [place] Cap) Albuterol Sulfate 3 ML BID 12/21 1000 AC (Proventil) Pantoprazole Sodium 40 MG DAILY 12/21 0400 AC 12/21 (Protonix) 0536 Ondansetron HCl 4 MG Q6 PRN 12/21 0330 AC (Zofran) Laboratory Tests 12/22/17 0430: Anion Gap 4 L, Estimated GFR > 60, Glucose 98, Calcium 7.7 L, Phosphorus 2.8, Magnesium 1.9, Total Bilirubin 0.6, AST 19, ALT 19 L, Albumin 2.4 L, CBC w Diff NO MAN DIFF REQ, RBC 3.52 L, MCV 85.6, MCH 28.6, MCHC 33.4, RDW 15.9 H, MPV 7.5, Gran % 50.1, Lymphocytes % 30.8, Monocytes % 14.0 H, Eosinophils % 4.8 , Basophils % 0.3, Absolute Granulocytes 4.1, Absolute Lymphocytes 2.5, Absolute Monocytes 1.1 H, Absolute Eosinophils 0.4, Absolute Basophils 0 12/21/17 1225: pH 7.36, pCO2 44, pO2 74 L, HCO3 24, ABG O2 Sat (Measured) 93.0 L, Carboxyhemoglobin 1.2 L, O2 Concentration % 30%, Respiration Rate 16, O2 Delivery Method VENT, Vent Mode AC, Expiratory Pressure 5, Tidal Volume 550, Phlebotomy Draw Site [place] 12/21/17 0855: pH 7.34 L, pCO2 51 H, pO2 123 H, HCO3 27, ABG O2 Sat (Measured) 97.0, Carboxyhemoglobin 0.9 L, O2 Concentration % 40%, Respiration Rate 16, O2 Delivery Method VENT, Vent Mode AC, Expiratory Pressure 5, Tidal Volume 500, Phlebotomy Draw Site [place] Microbiology 12/21 1100 LOWER RESP: Respiratory Culture - RES 12/21 1100 LOWER RESP: Gram Stain - RES 12 AM BP 130/75. PATIENT AWAKE, ALERT. AWAITING DR DUENAS ARRIVAL IN ED. RAPID TRANSFUSER AT BESIDE, BLOOD HANGING. SURGICAL PA IN ED EVALUATION PATIENT. PATIENT TRANSPORTED TO OR. (Altaf PARKS,Josette) Diagnostic Imaging: Viewed by Me: CT Scan. Discussed w/RAD: CT Scan. Radiology Impression: PATIENT: MAXIMINO MASON PRESENT AGE: 82 PATIENT ACCOUNT NO: [id number] : 36 LOCATION: [facility] ORDERING PHYSICIAN: Roldan MCDONNELL SERVICE DATE: 12/20/17 EXAM TYPE : CAT - CT ABD & PELVIS W IV CONTRAST; CT CHEST W IV CONTRAST EXAM: CONTRAST- ENHANCED CT OF THE CHEST; CONTRAST-ENHANCED CT OF THE ABDOMEN AND PELVIS INDICATION: Abdominal pain, hypotensive COMPARISON: Multiple priors, most recent chest CT 11/14/2017 TECHNIQUE: 100 mL Omnipaque 350 IV contrast was utilized. Multidetector helical imaging was performed through the chest, abdomen, and pelvis. Coronal and sagittal reformatted images were created at the technologist workstation. DLP: 565.02 mGy-cm FINDINGS: Chest: Within the lungs appears to be a combination of fibrosis and mild emphysema, without significant change from . No acute consolidation is identified. No pneumothorax or pleural effusion. The visualized thyroid gland is unremarkable. There are scattered lymph nodes within the mediastinum, with borderline enlargement in the AP window. There is mild cardiomegaly without pericardial effusion. There is atherosclerotic calcification along the aorta. Patient appears status post CABG. No axillary lymphadenopathy is present. Abdomen/Pelvis: The liver is homogeneous in attenuation without intrahepatic biliary ductal dilatation. Cholelithiasis is noted. The spleen, pancreas, and adrenal glands are within normal limits. Bilateral nephrograms are symmetric. There are upper and lower pole left renal cysts measuring up to approximately 4.1 cm. No hydronephrosis. No obstructing renal or ureteral calculi are present. The urinary bladder is unremarkable. Dense calcification is noted in the prostate. The small and large bowel are unremarkable without evidence of obstruction or pericolonic inflammatory change. There is an aortobiiliac stent graft within an aortic aneurysm measuring up to approximately 4.7 cm in diameter. Contrast material is seen within the stent graft, though there is also hyperdensity within the aneurysm sac outside the stent graft which is most compatible with an endoleak. In addition, there is extensive hyperdensity surrounding the infrarenal abdominal aorta which is most suspicious for aneurysm rupture. No retroperitoneal or pelvic lymphadenopathy is seen. Multilevel degenerative changes are present in the spine. Vertebral body cement is present in T8, T12, and L1 with varying degrees of height loss. There is also redemonstrated moderate compression deformity of T7. Patient is status post sternotomy. IMPRESSION: 1. Infrarenal abdominal aortic aneurysm with aortobiiliac stent graft. Extensive hyperattenuation around the infrarenal abdominal aorta, consistent with aneurysm rupture. There is also evidence of an endoleak within the aneurysm sac. 2. Redemonstrated findings of pulmonary fibrosis and emphysema. 3. Borderline enlarged AP window mediastinal lymph nodes, of uncertain clinical significance. 4. Cholelithiasis. 5. Multilevel degenerative changes and compression deformities in the spine. This critical result was discussed with Roldan Roche on 12/20/2017 11:28 PM, and it was ascertained that the content and urgency of the report was understood at the time of direct communication. DICTATED BY: Benoit Anglin MD DATE/TIME DICTATED :12/20/172313 GAS COMBUSTION ENGINEER:IVIS DATE/TIME TRANSCRIBED:12/20/172313 CONFIDENTIAL, DO NOT COPY WITHOUT APPROPRIATE AUTHORIZATION. < Electronically signed in Other Vendor System> SIGNED BY: Benoit Anglin MD 12/20/17 4885 Initial ED EKG: normal sinus rhythm, rate (72) Comments: 12/21/2017 12:05:34 AM After speaking with [facility] radiology vascular was paged immediately. Rapid transfusion protocol was activated. O- blood was obtained from lab. Patient continued to remain hemodynamically stable at this time. Vascular surgeon was consulted and is on his way here into the hospital. Surgical PA was consulted and is in the emergency room. Patient is on serial blood pressure checks every 5 minutes. Multiple peripheral IV lines were obtained. Dr. Lr was notified that his patient was given to be brought to the operating room. Dr. garduno 's is at bedside. 12/21/2017 12:45:57 AM Patient is stable. Patient on his way over to the operating room at this time. Spoke with surgical PA due to the fact that the patient is having significant pain at this time. We will administer half a milligram of Dilaudid. (Melchor MCDONNELL,Roldan) Departure Departure Disposition: STILL A PATIENT Condition: Stable Clinical Impression Primary Impression: AAA (abdominal aortic aneurysm, ruptured) Referrals: Adeline PARKS,Keyon Dunlap (PCP/Family) Departure Forms: Customer Survey General Discharge Information OR/GI Note Spoke With: Servando PARKS,Bhaskar Licona. ED Treatment Decision: MAXIMINO MASON requires urgent operative management or an emergent procedure that cannot be performed in the Emergency Room setting. Transport To: [facility] (Roldan Valladares) PA/LINING SCRUBBER Co-Sign Statement Statement: ED Attending supervision documentation- [X] I saw and evaluated the patient. I have also reviewed all the pertinent lab results and diagnostic results. I agree with the findings and the plan of care as documented in the PA's/LINING SCRUBBER's documentation. [X] I have reviewed the ED Record and agree with the PA's/LINING SCRUBBER's documentation. [] Additions or exceptions (if any) to the PAs/LINING SCRUBBER's note and plan are summarized below: [Patient was sitting watching TV when he had some onset of a sharp stabbing pain in his right lower back. The pain then began to radiate through to the right lower quadrant. Currently the pain is in the right lower quadrant much more than his back. The pain is sharp and stabbing. The pain increased with movement. There is slight nausea but no vomiting. Patient has had an appendectomy. On exam he has tenderness in all quadrants however more so on the right lower quadrant. There is voluntary guarding. There is slight rebound. There is no Rovsing sign. Patient has good strong femoral pulses. Patient is hypotensive but he is mentating normally. He is awake, alert and oriented 3. Patient will have lab work, aggressive hydration and CT scan. We'll continue to closely observe.] (Radames PARKS,Guillermo Ramos) PA/LINING SCRUBBER Co-Sign Statement Statement: ED Attending supervision documentation- [X] I saw and evaluated the patient. I have also reviewed all the pertinent lab results and diagnostic results. I agree with the findings and the plan of care as documented in the PA's/LINING SCRUBBER's documentation. [X] I have reviewed the ED Record and agree with the PA's/LINING SCRUBBER's documentation. [] Additions or exceptions (if any) to the PAs/LINING SCRUBBER's note and plan are summarized below: [] (Altaf PARKS,Josette) Critical Care Note Critical Care Note Critical Care Time: 30-74 min (45) (Roldan Valladares)
[2017-12-20 22:20] LABS: ABSOLUTE BASOPHIL COUNT 0.1 /CUMM (0.0-0.2); ABSOLUTE EOSINOPHIL COUNT 0.6 /CUMM (0.0-0.7); ABSOLUTE GRANULOCYTE CT 6.1 /CUMM (1.4-6.5); ABSOLUTE MONOCYTE COUNT 1.1 /CUMM (0.10-0.60); BASOPHIL % 0.5 % (0.0-2.0); EOSINOPHIL % 4.5 % (0-5); GRANULOCYTE % 47.4 % (42.2-75.2); MEAN CORPUSCULAR HGB 28.3 PG (27.0-31.0); MEAN CORPUSCULAR VOLUME 85.8 FL (80.0-94.0); MEAN PLATELET VOLUME 7.4 FL (7.4-10.4); PLATELET COUNT 169 /CUMM (130-400); RBC DISTRIBUTION WIDTH 15.3 % (11.5-14.5); RED BLOOD CELL CT 4.07 /CUMM (4.70-6.10)
[2017-12-20 22:21] LABS: PT 19.3 SEC (9.4-12.5); PTT 33 SEC (25-37)
[2017-12-20 22:35] LABS: WHITE BLOOD CELL COUNT 12.9 /CUMM (4.8-10.8)
--- NOTE | 2017-12-20 23:36 | CT SCAN REPORT ---
EXAM: CONTRAST-ENHANCED CT OF THE CHEST; CONTRAST-ENHANCED CT OF THE ABDOMEN AND PELVIS INDICATION: Abdominal pain, hypotensive COMPARISON: Multiple priors, most recent chest CT 11/14/2017 TECHNIQUE: 100 mL Omnipaque 350 IV contrast was utilized. Multidetector helical imaging was performed through the chest, abdomen, and pelvis. Coronal and sagittal reformatted images were created at the technologist workstation. DLP: 565.02 mGy-cm FINDINGS: Chest: Within the lungs appears to be a combination of fibrosis and mild emphysema, without significant change from 11/14/2017. No acute consolidation is identified. No pneumothorax or pleural effusion. The visualized thyroid gland is unremarkable. There are scattered lymph nodes within the mediastinum, with borderline enlargement in the AP window. There is mild cardiomegaly without pericardial effusion. There is atherosclerotic calcification along the aorta. Patient appears status post CABG. No axillary lymphadenopathy is present. Abdomen/Pelvis: The liver is homogeneous in attenuation without intrahepatic biliary ductal dilatation. Cholelithiasis is noted. The spleen, pancreas, and adrenal glands are within normal limits. Bilateral nephrograms are symmetric. There are upper and lower pole left renal cysts measuring up to approximately 4.1 cm. No hydronephrosis. No obstructing renal or ureteral calculi are present. The urinary bladder is unremarkable. Dense calcification is noted in the prostate. The small and large bowel are unremarkable without evidence of obstruction or pericolonic inflammatory change. There is an aortobiiliac stent graft within an aortic aneurysm measuring up to approximately 4.7 cm in diameter. Contrast material is seen within the stent graft, though there is also hyperdensity within the aneurysm sac outside the stent graft which is most compatible with an endoleak. In addition, there is extensive hyperdensity surrounding the infrarenal abdominal aorta which is most suspicious for aneurysm rupture. No retroperitoneal or pelvic lymphadenopathy is seen. Multilevel degenerative changes are present in the spine. Vertebral body cement is present in T8, T12, and L1 with varying degrees of height loss. There is also redemonstrated moderate compression deformity of T7. Patient is status post sternotomy. IMPRESSION: 1. Infrarenal abdominal aortic aneurysm with aortobiiliac stent graft. Extensive hyperattenuation around the infrarenal abdominal aorta, consistent with aneurysm rupture. There is also evidence of an endoleak within the aneurysm sac. 2. Redemonstrated findings of pulmonary fibrosis and emphysema. 3. Borderline enlarged AP window mediastinal lymph nodes, of uncertain clinical significance. 4. Cholelithiasis. 5. Multilevel degenerative changes and compression deformities in the spine. This critical result was discussed with Roldan Roche on 12/20/2017 11:28 PM, and it was ascertained that the content and urgency of the report was understood at the time of direct communication.
--- NOTE | 2017-12-21 00:07 | History & Physical ---
See Addendum General Information and HPI MD Statement: I have seen and personally examined MAXMIINO MASON and documented this H&P. The patient is a 82 year old M who presented with a patient stated chief complaint of []. Source of Information: patient Exam Limitations: no limitations History of Present Illness: PT PRESENTED TO ED BY WAY OF SON AFTER SUDDEN ONSET OF ABD PAIN WHILE WATCHING TV AROUND 6PM TONIGHT. PAIN IS IN HIS LOWER ABD AND BACK, CONSTANT, SHARP LAST ATE AT 5PM TONIGHT. ON ELIQUIS. TOOK ALL OF HIS REGULAR HOME MEDS Allergies/Medications Allergies: Coded Allergies: NO KNOWN ALLERGIES (10/30/11) Home Med list Albuterol Sulfate (Proair Hfa) 90 MCG HFA.AER.AD 2 PUF INH 4XDAILY RESP. ( Reported) Apixaban (Eliquis) 5 MG TABLET 1 TAB PO BID BLOOD THINNER (Reported) Aspirin (Ecotrin*) 81 MG TABLET.DR 1 TAB PO QPM HEART/BLOOD (Reported) Atorvastatin Calcium 20 MG TABLET 1 TAB PO DAILY CHOLESTEROL (Reported) Candesartan Cilexetil 4 MG TABLET 1 TAB PO DAILY BP (Reported) Ezetimibe (Zetia) 10 MG TABLET 1 TAB PO DAILY CHOLESTEROL (Reported) Magnesium Oxide (Magnesium) (Unknown Strength) CAPSULE (Unknown Dose) PO DAILY SUPPLEMENT (Reported) Metoprolol Succinate 50 MG TAB.ER.24H 1 TAB PO DAILY HEART/BP (Reported) Nortriptyline HCl 75 MG CAPSULE 175 MG PO QHS DEPRESSION (Reported) Past History Travel History Traveled to [place] past 21 day No Medical History Neurological: NONE EENT: NONE Cardiovascular: aortic aneurysm, AFIB, hypertension, hyperlipidemia, CARDIAC BIPASS L SIDE PACER/DEFIB Respiratory: bronchitis Gastrointestinal: constipation, HERNIA L GROIN Hepatic: NONE Renal: NONE Musculoskeletal: COMPRESSION FX Psychiatric: depression Endocrine: NONE Blood Disorders: NONE Cancer(s): NONE CHECK WRITER/Reproductive: NONE History of MRSA: No History of VRE: No History of CDIFF: No Influenza Vaccine: 09/02/17 Surgical History Surgical History: CABG, AAA, APPEDNECTOMY Past Family/Social History Psychosocial History ETOH Use: denies use Review of Systems Review of Systems Constitutional: Denies: chills, fever. Cardiovascular: Denies: chest pain. Respiratory: Denies: short of breath. GI: Reports: abdominal pain. Denies: diarrhea, nausea. Musculoskeletal: Reports: back pain. Exam & Diagnostic Data Last 24 Hrs of Vital Signs/I&O Vital Signs Date Time Temp Pulse Resp B/P B/P Pulse O2 O2 Flow FiO2 Mean Ox Delivery Rate 12/21 0003 97.6 63 18 137/86 100 Nasal 2.0L Cannula 03/04 2345 69 18 132/75 98 Nasal 2.0L Cannula 03/04 2338 96.5 71 18 149/78 99 Nasal 2.0L Cannula /04 2334 98.0 71 22 138/80 99 Nasal 2.0L Cannula 03/04 2327 70 20 133/75 99 Nasal 2.0L Cannula 03/04 2323 70 18 118/70 97 Nasal 2.0L Cannula /04 2237 70 18 100/67 96 Nasal 2.0L Cannula 03/04 2227 97.8 70 18 101/63 97 Nasal 2.0L Cannula 03/04 2209 97.2 /04 2203 73 18 97/59 96 Nasal 2.0L Cannula /04 2200 76 18 82/60 96 Nasal 2.0L Cannula 03/04 2200 70 18 85/56 97 Nasal 2.0L Cannula /04 2157 97 Room Air / 2137 97.2 79 22 93/56 100 Nasal 2.0L Cannula Intake & Output 12/21 0800 03/05 0000 04 1600 Intake Total 1000 Output Total Balance 1000 Intake, IV 1000 Patient 170 lb Weight Weight Estimated Measurement Method Physical Exam General Appearance Alert, Oriented X3, Cooperative Abdomen Soft, TENDER Extremities No Cyanosis (lower legs and feet are pale ), No Edema Vascular Normal Pulses (2+ FEMORAL PULSES. faint dp pu), warm and dry Last 24 Hrs of Labs/Brian: Laboratory Tests 12/20/172343: Urine Color Pending, Urine Clarity Pending, Urine pH Pending, Ur Specific [place] Pending, Urine Protein Pending, Urine Ketones Pending, Urine Nitrite Pending, Urine Bilirubin Pending, Urine Urobilinogen Pending, Ur Leukocyte Esterase Pending, Ur Microscopic Pending, Urine Hemoglobin Pending, Urine Glucose Pending 12/20/172154: Anion Gap 8, Estimated GFR > 60, BUN/Creatinine Ratio 16.4, Glucose 120 H, Lactic Acid 2.2 H, Calcium 8.8, Total Bilirubin 0.6, AST 35, ALT 27, Alkaline Phosphatase 83, Troponin I 0.01, Total Protein 6.9, Albumin 3.4 L, Globulin 3.5 , Albumin/Globulin Ratio 1.0 L, CBC w Diff NO MAN DIFF REQ, RBC 4.07 L, MCV 85.8, MCH 28.3, MCHC 33.0, RDW 15.3 H, MPV 7.4, Gran % 47.4, Lymphocytes % 38.7 , Monocytes % 8.9, Eosinophils % 4.5, Basophils % 0.5, Absolute Granulocytes 6.1 , Absolute Lymphocytes 5.0 H, Absolute Monocytes 1.1 H, Absolute Eosinophils 0.6, Absolute Basophils 0.1 12/20/17 2150: PT 19.3 H, INR 1.76 H, APTT 33 Microbiology 12/20 2344 URINE ROUT: Urine Culture - RECD Diagnostic Data Other Results EXAM TYPE: CAT - CT ABD & PELVIS W IV CONTRAST; CT CHEST W IV CONTRAST EXAM: CONTRAST-ENHANCED CT OF THE CHEST; CONTRAST-ENHANCED CT OF THE ABDOMEN AND PELVIS INDICATION: Abdominal pain, hypotensive COMPARISON: Multiple priors, most recent chest CT 11/14/2017 TECHNIQUE: 100 mL Omnipaque 350 IV contrast was utilized. Multidetector helical imaging was performed through the chest, abdomen, and pelvis. Coronal and sagittal reformatted images were created at the technologist workstation. DLP: 565.02 mGy-cm FINDINGS: Chest: Within the lungs appears to be a combination of fibrosis and mild emphysema, without significant change from 11/14/2017. No acute consolidation is identified. No pneumothorax or pleural effusion. The visualized thyroid gland is unremarkable. There are scattered lymph nodes within the mediastinum, with borderline enlargement in the AP window. There is mild cardiomegaly without pericardial effusion. There is atherosclerotic calcification along the aorta. Patient appears status post CABG. No axillary lymphadenopathy is present. Abdomen/Pelvis: The liver is homogeneous in attenuation without intrahepatic biliary ductal dilatation. Cholelithiasis is noted. The spleen, pancreas, and adrenal glands are within normal limits. Bilateral nephrograms are symmetric. There are upper and lower pole left renal cysts measuring up to approximately 4.1 cm. No hydronephrosis. No obstructing renal or ureteral calculi are present. The urinary bladder is unremarkable. Dense calcification is noted in the prostate. The small and large bowel are unremarkable without evidence of obstruction or pericolonic inflammatory change. There is an aortobiiliac stent graft within an aortic aneurysm measuring up to approximately 4.7 cm in diameter. Contrast material is seen within the stent graft, though there is also hyperdensity within the aneurysm sac outside the stent graft which is most compatible with an endoleak. In addition, there is extensive hyperdensity surrounding the infrarenal abdominal aorta which is most suspicious for aneurysm rupture. No retroperitoneal or pelvic lymphadenopathy is seen. Multilevel degenerative changes are present in the spine. Vertebral body cement is present in T8, T12, and L1 with varying degrees of height loss. There is also redemonstrated moderate compression deformity of T7. Patient is status post sternotomy. IMPRESSION: 1. Infrarenal abdominal aortic aneurysm with aortobiiliac stent graft. Extensive hyperattenuation around the infrarenal abdominal aorta, consistent with aneurysm rupture. There is also evidence of an endoleak within the aneurysm sac. 2. Redemonstrated findings of pulmonary fibrosis and emphysema. 3. Borderline enlarged AP window mediastinal lymph nodes, of uncertain clinical significance. 4. Cholelithiasis. 5. Multilevel degenerative changes and compression deformities in the spine. This critical result was discussed with Roldan Roche on 12/20/2017 11:28 PM, and it was ascertained that the content and urgency of the report was understood at the time of direct communication. DICTATED BY: Benoit Anglin MD DATE/TIME DICTATED:12/20/172313 CONCRETE HANDLER:IVIS DATE/TIME TRANSCRIBED:12/20/172313 Assessment/Plan Assessment: 82YO m WITH ENDOLEAK AND POSSIBLE RUPTURE OF INFRARENAL AAA PLAN FOR OR FOR EMERGENT REPAIR, Dr. Al WILL ATTEMPT ENDOVASCULAR REPAIR TYPE AND SCREEN PRBCS [place] MAINTAIN BP IVF PAIN MANAGEMENT RECHECK CRIT VITAL [id number] As Ranked By This Provider Problem List: 1. AAA (abdominal aortic aneurysm, ruptured) Core Measures/Misc (07/05) Acute Coronary Syndrome ACS Diagnosis: No Congestive Heart Failure Congestive Heart Failure Diagnosis No Cerebrovascular Accident CVA/TIA Diagnosis: No VTE (View Protocol) VTE Risk Factors Acute Medical Illness No Mechanical VTE Prophylaxis d/t N/A MechProphylax Ordered No VTE Pharm Prophylaxis d/t Surgical Contraindication Sepsis (View protocol) Sepsis Present: No
[2017-12-21 03:42] LABS: ABSOLUTE BASOPHIL COUNT 0 /CUMM (0.0-0.2); ABSOLUTE EOSINOPHIL COUNT 0.3 /CUMM (0.0-0.7); ABSOLUTE GRANULOCYTE CT 8.1 /CUMM (1.4-6.5); ABSOLUTE LYMPH COUNT 2.9 /CUMM (1.2-3.4); ABSOLUTE MONOCYTE COUNT 0.5 /CUMM (0.10-0.60); BASOPHIL % 0.4 % (0.0-2.0); EOSINOPHIL % 2.4 % (0-5); GRANULOCYTE % 68.6 % (42.2-75.2); HEMATOCRIT 32.7 % (42-52); MEAN CORPUSCULAR HGB 28.1 PG (27.0-31.0); MEAN CORPUSCULAR HGB CONC 32.5 G/DL (33.0-37.0); MEAN CORPUSCULAR VOLUME 86.5 FL (80.0-94.0); MEAN PLATELET VOLUME 7.9 FL (7.4-10.4); PLATELET COUNT 141 /CUMM (130-400); RBC DISTRIBUTION WIDTH 15.3 % (11.5-14.5); RED BLOOD CELL CT 3.78 /CUMM (4.70-6.10); WHITE BLOOD CELL COUNT 11.8 /CUMM (4.8-10.8)
--- NOTE | 2017-12-21 04:11 | Cons- CRCU ---
TommiefritzchristosSarahsai 12/21/17 0410: General Information and HPI Consulting Request Date of Consult: 12/21/17 Reason for Consult: s/p AAA repair Source of Information: family, old records Exam Limitations: unable to give history History of Present Illness: Mr Webb was known to be in his usual state of health until the evening of his admission. He has a PMHx: CAD s/p CABG 1993, stent placed in 1994, ischemic cardiomyopathy EF 50% s/p AICD, Afib on eliquis, MR, Pulmonary fibrosis on 2L supplemental oxygen, past smoker quit 20 yrs ago, previous [id number] stent graft in place for aortic aneursym( dx'ed [address] Hartley). History was obtained from patient's son, and from ER notes. He was brought in by his son, when Mr. Webb complained of acute pain in abdomen radiating to his back that began approximately a few hours prior to ER presentation in the p.m, after he had his dinner. Pain was noted to be sharp, as per the patient's son. Did not report any chest pain, shortness of breath, palpitations. Did not have any loss of consciousness, lightheadedness or vision changes. Reported compliance with his medications including his antihypertensives, and has not been smoking again since . No abdominal injury, dysuria noted. At the time of presentation to the ED, vitals-temperature 97.2, pulse rate 79, respiration 22, blood pressure 93/56, pulse ox 100% on 2 L nasal cannula. CAT scan abdomen was obtained which revealed infrarenal abdominal aortic aneurysm with stent graft in place but had extensive hyperattenuation around infrarenal abdominal aortic itch was consistent with aneurysmal rupture. There was also an evidence of endoleak around the aneurysmal sac. He was immediately taken down to the operating room, by Dr. Al for aortic cuff repair for endoleak. He was subsequently intubated, and continued to be on volume control ventilation. As per the surgical PA, there was a transient episode of hypotension, after which he was started on Micheal-Synephrine. After the surgery, he was transferred to ICU for medical management. Allergies/Medications Allergies: Coded Allergies: NO KNOWN ALLERGIES (10/30/11) Home Med List: Albuterol Sulfate (Proair Hfa) 90 MCG HFA.AER.AD 2 PUF INH 4XDAILY RESP. ( Reported) Apixaban (Eliquis) 5 MG TABLET 1 TAB PO BID BLOOD THINNER (Reported) Aspirin (Ecotrin*) 81 MG TABLET.DR 1 TAB PO QPM HEART/BLOOD (Reported) Atorvastatin Calcium 20 MG TABLET 1 TAB PO DAILY CHOLESTEROL (Reported) Candesartan Cilexetil 4 MG TABLET 1 TAB PO DAILY BP (Reported) Ezetimibe (Zetia) 10 MG TABLET 1 TAB PO DAILY CHOLESTEROL (Reported) Magnesium Oxide (Magnesium) (Unknown Strength) CAPSULE (Unknown Dose) PO DAILY SUPPLEMENT (Reported) Metoprolol Succinate 50 MG TAB.ER.24H 1 TAB PO DAILY HEART/BP (Reported) Nortriptyline HCl 75 MG CAPSULE 175 MG PO QHS DEPRESSION (Reported) Current Medications: Current Medications Sig/Sulaiman Start time Last Medication Dose Route Stop Time Status Admin Acetaminophen 1,000 MG Q6P PRN 12/21 033 AC IV Acetaminophen 1,000 MG ONCE ONE 12/205 DC 12/20 N/A 1 UNIT IV 12/20 2228 2209 Atorvastatin Calcium 20 MG 1700 12/21 1700 AC PO Dextrose/Sodium 1,000 ML Q10H 12/21 0730 AC Chloride IV Hydromorphone HCl 1 MG Q4P PRN 12/21 329 DC IV Hydromorphone HCl 0 .STK-MED ONE 12/21 005 DC .ROUTE Hydromorphone HCl 0.5 MG ONCE ONE 12/21 0045 DC 12/21 IV 12/21 0046 0046 Lactated Ringer's 1,000 ML Q10H 12/21 033 DC 12/21 IV 0350 Lorazepam 2 MG ONE ONE 12/21 0400 DC 12/21 IV 12/21 040 0350 Magnesium Sulfate 1 GM Q2H 12/21 0900 UNVr Dextrose/Water 100 ML IV 12/21 1259 Morphine Sulfate 2 MG Q2P PRN 12/21 0730 AC IV Morphine Sulfate 2 MG Q6P PRN 12/21 033 DC IV Norepinephrine 0 .STK-MED ONE 12/21 0038 DC IV Norepinephrine 4 MG ONCE ONE 12/21 003 DC Sodium Chloride 250 ML IV 12/21 003 Ondansetron HCl 4 MG Q6 PRN 12/21 033 AC IV Pantoprazole Sodium 40 MG DAILY 12/21 0400 AC 12/21 IV 0536 Phenylephrine HCl 0 .STK-MED ONE 12/21 0042 DC .ROUTE Phenylephrine HCl 0 .STK-MED ONE 12/21 0038 DC .ROUTE Phenylephrine HCl 40 MG ONCE ONE 12/21 0030 DC Sodium Chloride 250 ML IV 12/21 0031 Sodium Chloride 1,000 ML BOLUS ONE 12/20 2345 DC / IV 12/21 0044 2330 Sodium Chloride 1,000 ML BOLUS ONE 12/20 2200 DC / IV 12/20 2259 2200 Vasopressin 40 UNITS Q16H 12/21 0030 DC Sodium Chloride 100 ML IV Review of Systems Review of Systems Constitutional: Reports: see HPI. EENTM: Denies: visual changes. Cardiovascular: Denies: chest pain, palpitations. Respiratory: Denies: cough, orthopnea, short of breath. GI: Reports: abdominal pain. Denies: nausea. Genitourinary: Denies: dysuria. Musculoskeletal: Reports: back pain. Skin: Denies: change in skin color. Neurological/Psychological: Denies: dementia. Hematologic/Endocrine: Denies: bruising. Past History Travel History Traveled to [place] past 21 day No Medical History Neurological: NONE EENT: NONE Cardiovascular: aortic aneurysm, AFIB, hypertension, hyperlipidemia, CARDIAC BIPASS L SIDE PACER/DEFIB Respiratory: bronchitis Gastrointestinal: constipation, HERNIA L GROIN Hepatic: NONE Renal: NONE Musculoskeletal: COMPRESSION FX Psychiatric: depression Endocrine: NONE Blood Disorders: NONE Cancer(s): NONE COMMUNICATIONS ASSISTANT/Reproductive: NONE Surgical History Surgical History: CABG, AAA, APPEDNECTOMY Psychosocial History ETOH Use: denies use Functional Ability ADLs Independent: dressing, eating (the), toileting, bathing. Ambulation: independent IADLs Independent: housework. Exam & Diagnostic Data Last 24 Hrs of Vital Signs/I&O Vital Signs Date Time Temp Pulse Resp B/P B/P Pulse O2 O2 Flow FiO2 Mean Ox Delivery Rate 12/21 0555 50 12/21 0549 60 12/21 0418 60 12/21 0329 100 12/21 0026 96.5 72 18 136/85 100 Nasal 2.0L Cannula 12/21 0022 98.8 74 20 136/85 100 Nasal 2.0L Cannula 12/21 0018 70 18 122/79 99 Nasal 2.0L Cannula 03/05 0011 98.0 71 18 136/82 98 Nasal 2.0L Cannula 03/05 0006 70 18 130/70 99 Nasal 2.0L Cannula 03/05 0003 97.6 63 18 137/86 100 Nasal 2.0L Cannula 03/04 2345 69 18 132/75 98 Nasal 2.0L Cannula 03/04 2338 96.5 71 18 149/78 99 Nasal 2.0L Cannula 03/04 2334 98.0 71 22 138/80 99 Nasal 2.0L Cannula 03/04 2327 70 20 133/75 99 Nasal 2.0L Cannula 03/04 2323 70 18 118/70 97 Nasal 2.0L Cannula 03/04 2300 99 Nasal 2.0L Cannula 03/04 2237 70 18 100/67 96 Nasal 2.0L Cannula 03/04 2227 97.8 70 18 101/63 97 Nasal 2.0L Cannula 03/04 2209 97.2 03/04 2203 73 18 97/59 96 Nasal 2.0L Cannula 03/04 2200 76 18 82/60 96 Nasal 2.0L Cannula 03/04 2200 70 18 85/56 97 Nasal 2.0L Cannula 03/04 2157 97 Room Air 03/ 2137 97.2 79 22 93/56 100 Nasal 2.0L Cannula Intake & Output / 0800 03/05 0000 03/04 1600 Intake Total 1000 Output Total Balance 1000 Intake, IV 1000 Patient 170 lb Weight Weight Estimated Measurement Method Physical Exam General Appearance: comfortable, intubated Head: atraumatic Eyes: Bilateral: PERRL. Neck: supple, limited examination Respiratory: rhonchi Cardiovascular: regular rate/rhythm, normal peripheral pulses Peripheral Pulses: 3+ radial (R), 3+ radial (L) Gastrointestinal: soft, non-tender (a) Extremities: normal inspection, no edema Neurologic/Psych: no motor/sensory deficits (limited neuro exam) Reflexes: 3+: knee (R), knee (L). Skin: intact, normal color Last 48 Hrs of Labs/Brian: Laboratory Tests 12/21/17 0855: pH 7.34 L, pCO2 51 H, pO2 123 H, HCO3 27, ABG O2 Sat (Measured) 97.0, Carboxyhemoglobin 0.9 L, O2 Concentration % 40%, Respiration Rate 16, O2 Delivery Method VENT, Vent Mode AC, Expiratory Pressure 5, Tidal Volume 500, Phlebotomy Draw Site [place] 12/21/17 0450: Lactic Acid 1.1 12/21/17 0450: Anion Gap 5, Estimated GFR > 60, Glucose 119 H, Calcium 7.7 L, Phosphorus 3.7, Magnesium 1.7, Total Bilirubin 1.4 H, AST 23, ALT 22, Albumin 2.5 L, PT 16.4 H, INR 1.50 H, APTT 35, CBC w Diff NO MAN DIFF REQ, RBC 3.89 L, MCV 85.7, MCH 27.7, MCHC 32.3 L, RDW 15.6 H, MPV 7.7, Gran % 69.0, Lymphocytes % 22.3, Monocytes % 7.9, Eosinophils % 0.5, Basophils % 0.3, Absolute Granulocytes 6.8 H, Absolute Lymphocytes 2.2, Absolute Monocytes 0.8 H, Absolute Eosinophils 0, Absolute Basophils 0 12/21/17 0405: pH 7.26 *L, pCO2 55 H, pO2 402 H, HCO3 26, ABG O2 Sat (Measured) 99.0, P-50 ( Temp Corrected) Y, Carboxyhemoglobin 0.3 L, O2 Concentration % 100%, Temperature 96.2 L, Respiration Rate 12, O2 Delivery Method ESPRIT, Vent Mode AC, Expiratory Pressure 5, Tidal Volume 500, Phlebotomy Draw Site [place] 12/21/17 0300: Lactic Acid Cancelled 12/21/17 0006: Lactic Acid 1.1 12/21/17 0000: Lactic Acid Cancelled 12/20/17 2344: Urinalysis LIGHT H, Urine Color YEL, Urine Clarity CLDY H, Urine pH 5.5, Ur Specific [place] 1.025, Urine Protein NEG, Urine Ketones NEG, Urine Nitrite POS H, Urine Bilirubin NEG, Urine Urobilinogen 0.2, Ur Leukocyte Esterase TRACE H, Ur Microscopic SEDIMENT EXAMINED, Urine RBC 10-15 H, Urine WBC 15-25 H, Urine Bacteria MANY H, Urine Mucus FEW, Micro UA Comment , Urine Hemoglobin MOD H, Urine Glucose NEG 12/20/17 2331: CBC w Diff NO MAN DIFF REQ, RBC 3.78 L, MCV 86.5, MCH 28.1, MCHC 32.5 L, RDW 15.3 H, MPV 7.9, Gran % 68.6, Lymphocytes % 24.3, Monocytes % 4.3, Eosinophils % 2.4, Basophils % 0.4, Absolute Granulocytes 8.1 H, Absolute Lymphocytes 2.9, Absolute Monocytes 0.5, Absolute Eosinophils 0.3, Absolute Basophils 0 12/20/172154: Anion Gap 8, Estimated GFR > 60, BUN/Creatinine Ratio 16.4, Glucose 120 H, Lactic Acid 2.2 H, Calcium 8.8, Total Bilirubin 0.6, AST 35, ALT 27, Alkaline Phosphatase 83, Troponin I 0.01, Total Protein 6.9, Albumin 3.4 L, Globulin 3.5 , Albumin/Globulin Ratio 1.0 L, CBC w Diff NO MAN DIFF REQ, RBC 4.07 L, MCV 85.8, MCH 28.3, MCHC 33.0, RDW 15.3 H, MPV 7.4, Gran % 47.4, Lymphocytes % 38.7 , Monocytes % 8.9, Eosinophils % 4.5, Basophils % 0.5, Absolute Granulocytes 6.1 , Absolute Lymphocytes 5.0 H, Absolute Monocytes 1.1 H, Absolute Eosinophils 0.6, Absolute Basophils 0.1 12/20/172149: PT 19.3 H, INR 1.76 H, APTT 33 Diagnostic Data EKG Results Paced rhtym, No STTW changes. Other Results CAT - CT ABD & PELVIS W IV CONTRAST; CT CHEST W IV CONTRAST 1. Infrarenal abdominal aortic aneurysm with aortobiiliac stent graft. Extensive hyperattenuation around the infrarenal abdominal aorta, consistent with aneurysm rupture. There is also evidence of an endoleak within the aneurysm sac. 2. Redemonstrated findings of pulmonary fibrosis and emphysema. 3. Borderline enlarged AP window mediastinal lymph nodes, of uncertain clinical significance. 4. Cholelithiasis. 5. Multilevel degenerative changes and compression deformities in the spine. Assessment/Plan CRCU Impression/Plan: Mr Webb is a 82 yr old man w/ a PMHx of CAD s/p CABG 1993, stent placed in 1994, ischemic cardiomyopathy EF 50% s/p AICD, Afib on eliquis, MR, Pulmonary fibrosis on 2L supplemental oxygen, past smoker quit 20 yrs ago, previous aroto- bi-iliac stent graft in place for aortic aneursym( dx'ed [address] Hartley) who was brought in for evaluation of acute abdomen secondary to endoleak AAA who underwent endovascular aortic cuff repair and managed in the ICU. Etioloy for his acute endoleak and aneursym rupture long after EVAR or stent graft ( type of repair done in 2004 is still unclear from the EMR) is usually common, which likely is type 2 or type 3 as per the imaging; other causes such as age related dilation of aorta causing drifting of graft or uncontrolled htn are other causes. Post operatively BP needs to be adequately controlled, and monitored for further leaks given his history of eliquis use for the tx of Afib. In regards to his ventilation, he has a history of pulmonary fibrosis w/ unknown etiology ( details unknown at this time, who follows up w/ Dr Landis ) would make weaning a little more challenging. Plan: 1. Respiratory- history of pulmonary fibrosis. Last blood gas revealed pH 7.26, and hypercabia, after which rate was adjusted. Recheck ABG to adjust settings. Continue vent settings at this time, and plan to wean him off in the next 12-24 hrs as the BP allows. Check CXR in the am. 2. Infectious- leukocytosis is likely reactive. Continue to monitor for any signs of infection. No antibiotics are indicated this time. 3. Circulatory-currently off pressors. Blood pressure goal systolic 100-140. Adjust the A-line to guage appropriate BP control. Strict BP control. Use anti- hypertensives, if needed to keep the BP on the lower side. AAA repair work up as per surgery. Follow CTA as per surgery to assess the leak. Monitor H&H. 4. Hematology- stable. Monitor platelets. 5. Metabolic- Stable. Monitor renal function closely. Found to have blood tinged. Monitor closely for now. 6. Alimentary- currently remains intubated. No OG tube in place. NPO for now. Fluids w/ D51/2 NS. Re-assess the need for diet etc after extubation. Serial abdominal examinations. 7. Neurology- Ativan was given x 1. Would assess the need for ativan prn. Would avoid drip for now, if the pt is planned to be extubated. Housekeepin. DVT Ppx- ALPS for now. 2. Mahmood catheter 3. LInes- left IJ placed. 4. Diet- npo Problems: 1. history of Pulmonary fibrosis 2. AAA endo leak and aneursym rupture. 3. history of CAD s/p CABG, PCI 4. Atrial fibrillation 5. Ischemic cardiomyopathy Problem List: 1. AAA (abdominal aortic aneurysm, ruptured) Consult Acknowledgment - Thank you for your consult request. Dedrick Hi MD 12/21/17 1133: General Information and HPI Consulting Request Requested By: Servando Assessment/Plan CRCU Other Findings/Comments: Dedrick Mcnally M.D. have examined this patient, reviewed available EMR data, personally reviewed images, discussed with resident/PA/CLEANING PORTER, discussed management plan with housestaff and nursing staff, discussed managment plan all of healthcare providers, discussed management plan with patient and/or family, agreed with resident/PA/CLEANING PORTER. The past history and parts of the chart have been autopopulated. Impression 82 year old man * endoleak AAA repair * hypoxemic respiratory failure, hx of IPF * resolved hypotension Plan Respiratory -vent settings adjusted, repeat abg, if improved, SBT trials ID -monitor CVS -off pressors -bp control -cardiology consulted, f/u recs Heme -monitor cbc Metabolic -ins/outs -monitor electrolytes Alimentary -per surgery, NPO for now Neuro -off sedation, plan for SBT TTS 40 min Full Code Consult Acknowledgment - Thank you for your consult request.
--- NOTE | 2017-12-21 04:56 | RADIOLOGY REPORT ---
EXAMINATION: XR PORTABLE CHEST CLINICAL INFORMATION: Postoperative central line COMPARISON: CT from 12/20/2017, x-ray from 11/14/2017 TECHNIQUE: Portable frontal view of the chest was obtained. FINDINGS: Endotracheal tube tip lies approximately 5 cm above the artur. Right IJ central line tip lies at the level of the distal SVC. Left-sided pacemaker/AICD lead tips overlie the right atrium, right ventricle, and coronary sinus. Mediastinal clips are present. Lung volumes are symmetric. There is redemonstrated interstitial prominence in keeping with findings of fibrosis and emphysema better demonstrated on recent CT. Suspect trace left pleural effusion. No evidence of pneumothorax. The cardiac silhouette remains enlarged. Calcification is present at the aortic arch. No acute osseous findings are seen. IMPRESSION: 1. Right IJ central line tip at the level of the distal SVC. 2. Redemonstrated pulmonary findings of fibrosis and emphysema, better evaluated on recent CT. Suspected trace left pleural effusion. 3. Enlarged cardiac silhouette.
[2017-12-21 05:00] VITALS: BP 140/80
[2017-12-21 05:41] LABS: ABSOLUTE BASOPHIL COUNT 0 /CUMM (0.0-0.2); ABSOLUTE EOSINOPHIL COUNT 0 /CUMM (0.0-0.7); ABSOLUTE GRANULOCYTE CT 6.8 /CUMM (1.4-6.5); ABSOLUTE LYMPH COUNT 2.2 /CUMM (1.2-3.4); ABSOLUTE MONOCYTE COUNT 0.8 /CUMM (0.10-0.60); BASOPHIL % 0.3 % (0.0-2.0); EOSINOPHIL % 0.5 % (0-5); HEMATOCRIT 33.3 % (42-52); MEAN CORPUSCULAR HGB 27.7 PG (27.0-31.0); MEAN CORPUSCULAR HGB CONC 32.3 G/DL (33.0-37.0); MEAN CORPUSCULAR VOLUME 85.7 FL (80.0-94.0); MEAN PLATELET VOLUME 7.7 FL (7.4-10.4); PLATELET COUNT 122 /CUMM (130-400); RBC DISTRIBUTION WIDTH 15.6 % (11.5-14.5); RED BLOOD CELL CT 3.89 /CUMM (4.70-6.10); WHITE BLOOD CELL COUNT 9.8 /CUMM (4.8-10.8)
[2017-12-21 06:10] LABS: PT 16.4 SEC (9.4-12.5); PTT 35 SEC (25-37)
--- NOTE | 2017-12-21 07:47 | PN- Vascular Surgery ---
See Addendum Subjective Subjective: out of or 3am, remains intubated in icu. coughing, fighting with tube. now off pressors with sbp 130-140 by cuff. Objective Vital Signs and I&Os Vital Signs Date Time Temp Pulse Resp B/P B/P Pulse O2 O2 Flow FiO2 Mean Ox Delivery Rate 12/21 0555 50 / 0549 60 / 0418 60 / 0329 100 03/ 0026 96.5 72 18 136/85 100 Nasal 2.0L Cannula 03/05 0022 98.8 74 20 136/85 100 Nasal 2.0L Cannula 03/05 0018 70 18 122/79 99 Nasal 2.0L Cannula 03/05 0011 98.0 71 18 136/82 98 Nasal 2.0L Cannula 03/05 0006 70 18 130/70 99 Nasal 2.0L Cannula 03/05 0003 97.6 63 18 137/86 100 Nasal 2.0L Cannula 03/04 2345 69 18 132/75 98 Nasal 2.0L Cannula 03/04 2338 96.5 71 18 149/78 99 Nasal 2.0L Cannula 03/04 2334 98.0 71 22 138/80 99 Nasal 2.0L Cannula 03/04 2327 70 20 133/75 99 Nasal 2.0L Cannula 03/04 2323 70 18 118/70 97 Nasal 2.0L Cannula 03/04 2300 99 Nasal 2.0L Cannula 03/04 2237 70 18 100/67 96 Nasal 2.0L Cannula 03/04 2227 97.8 70 18 101/63 97 Nasal 2.0L Cannula 03/04 2209 97.2 03/04 2203 73 18 97/59 96 Nasal 2.0L Cannula 03/04 2200 76 18 82/60 96 Nasal 2.0L Cannula 03/04 2200 70 18 85/56 97 Nasal 2.0L Cannula 03/04 2157 97 Room Air /2136 97.2 79 22 93/56 100 Nasal 2.0L Cannula Intake & Output 03/ 0800 03/05 0000 03/04 1600 03/ 0800 03/04 0000 03/03 1600 Intake Total 1000 Output Total Balance 1000 Intake, IV 1000 Patient 170 lb Weight Weight Estimated Measurement Method Physical Exam: gen- intubated, coughing, fighting, bl wrist restaints, opens eyes, no clear communication card- s1s2, sbp 130-140 by cuff, 160 by socorro, hr 70s neck- RIJ TLC in place, oozing from site pulm- coarse throughout, vented. abd- soft, nt, obese, no ecchymosis (per rn, no flank or back ecchymosis when assessed) ext- bl groins dressed with no drainage, no ecchymosis, soft. calves soft, alps on bl. feet warm, palp pt. - riggs in place, +hematuria, +oozing from meatus Current Medications: Current Medications Sig/Sulaiman Start time Last Medication Dose Route Stop Time Status Admin Acetaminophen 1,000 MG Q6P PRN 12/21 0330 AC IV Acetaminophen 1,000 MG ONCE ONE 12/205 DC 12/20 N/A 1 UNIT IV 12/20 2228 2209 Atorvastatin Calcium 20 MG 1700 12/21 1700 AC PO Dextrose/Sodium 1,000 ML Q10H 12/21 0730 AC Chloride IV Hydromorphone HCl 1 MG Q4P PRN 12/21 033 DC IV Hydromorphone HCl 0 .STK-MED ONE 12/21 0051 DC .ROUTE Hydromorphone HCl 0.5 MG ONCE ONE 12/21 0045 DC 12/21 IV 12/21 0046 0046 Lactated Ringer's 1,000 ML Q10H 12/21 0330 DC 12/21 IV 0350 Lorazepam 2 MG ONE ONE 12/21 0400 DC 12/21 IV 12/21 040 0350 Morphine Sulfate 2 MG Q2P PRN 12/21 0730 AC IV Morphine Sulfate 2 MG Q6P PRN 12/21 0330 DC IV Norepinephrine 0 .STK-MED ONE 12/21 0038 DC IV Norepinephrine 4 MG ONCE ONE 12/21 0030 DC Sodium Chloride 250 ML IV 12/21 003 Ondansetron HCl 4 MG Q6 PRN 12/21 033 AC IV Pantoprazole Sodium 40 MG DAILY 12/21 0400 AC 12/21 IV 0536 Phenylephrine HCl 0 .STK-MED ONE 12/21 0042 DC .ROUTE Phenylephrine HCl 0 .STK-MED ONE 12/21 0038 DC .ROUTE Phenylephrine HCl 40 MG ONCE ONE 12/21 003 DC Sodium Chloride 250 ML IV 12/21 0031 Sodium Chloride 1,000 ML BOLUS ONE 12/20 2345 DC / IV 12/21 0044 2330 Sodium Chloride 1,000 ML BOLUS ONE 12/20 2200 DC / IV 12/20 225 2200 Vasopressin 40 UNITS Q16H 12/21 0030 DC Sodium Chloride 100 ML IV Results Last 48 Hours of Labs: Laboratory Tests 12/21 12/21 12/21 0450 0450 0405 Blood Gas pH (7.35 - 7.45 PH) 7.26 *L pCO2 (35 - 45 TORR) 55 H pO2 (80 - 100 TORR) 402 H HCO3 (21 - 28 MEQ/L) 26 ABG O2 Sat (Measured) (>96.0 %) 99.0 P-50 (Temp Corrected) Y Carboxyhemoglobin (1.5 - 5.0 %) 0.3 L O2 Concentration % 100% Temperature (97.0 - 100.0 FARH) 96.2 L Respiration Rate (BPM) 12 O2 Delivery Method ESPRIT Vent Mode AC Expiratory Pressure (CMH2O/P) 5 Tidal Volume (CC) 500 Chemistry Sodium (137 - 145 mmol/L) 135 L Potassium (3.5 - 5.1 mmol/L) 5.1 Chloride (98 - 107 mmol/L) 104 Carbon Dioxide (22 - 30 mmol/L) 26 Anion Gap (5 - 16) 5 BUN (9 - 20 mg/dL) 14 Creatinine (0.7 - 1.2 mg/dL) 0.8 Estimated GFR (>60 ml/min) > 60 Glucose (65 - 99 mg/dL) 119 H Lactic Acid (0.7 - 2.1 mmol/L) 1.1 Calcium (8.4 - 10.2 mg/dL) 7.7 L Phosphorus (2.5 - 4.5 mg/dL) 3.7 Magnesium (1.6 - 2.3 mg/dL) 1.7 Total Bilirubin (0.2 - 1.3 mg/dL) 1.4 H AST (17 - 59 U/L) 23 ALT (21 - 72 U/L) 22 Albumin (3.5 - 5.0 g/dL) 2.5 L Coagulation PT (9.4 - 12.5 SEC) 16.4 H INR (0.90 - 1.17) 1.50 H APTT (25 - 37 SEC) 35 Hematology CBC w Diff NO MAN DIFF REQ WBC (4.8 - 10.8 /CUMM) 9.8 RBC (4.70 - 6.10 /CUMM) 3.89 L Hgb (14.0 - 18.0 G/DL) 10.8 L Hct (42 - 52 %) 33.3 L MCV (80.0 - 94.0 FL) 85.7 MCH (27.0 - 31.0 PG) 27.7 MCHC (33.0 - 37.0 G/DL) 32.3 L RDW (11.5 - 14.5 %) 15.6 H Plt Count (130 - 400 /CUMM) 122 L MPV (7.4 - 10.4 FL) 7.7 Gran % (42.2 - 75.2 %) 69.0 Lymphocytes % (20.5 - 51.1 %) 22.3 Monocytes % (1.7 - 9.3 %) 7.9 Eosinophils % (0 - 5 %) 0.5 Basophils % (0.0 - 2.0 %) 0.3 Absolute Granulocytes (1.4 - 6.5 /CUMM) 6.8 H Absolute Lymphocytes (1.2 - 3.4 /CUMM) 2.2 Absolute Monocytes (0.10 - 0.60 /CUMM) 0.8 H Absolute Eosinophils (0.0 - 0.7 /CUMM) 0 Absolute Basophils (0.0 - 0.2 /CUMM) 0 Miscellaneous Phlebotomy Draw Site [employer] 12/21 12/21 12/21 0300 0006 0000 Chemistry Lactic Acid (0.7 - 2.1 mmol/L) Cancelled 1.1 Cancelled 12/20 12/20 2344 2331 Hematology CBC w Diff NO MAN DIFF REQ WBC (4.8 - 10.8 /CUMM) 11.8 H RBC (4.70 - 6.10 /CUMM) 3.78 L Hgb (14.0 - 18.0 G/DL) 10.6 L Hct (42 - 52 %) 32.7 L MCV (80.0 - 94.0 FL) 86.5 MCH (27.0 - 31.0 PG) 28.1 MCHC (33.0 - 37.0 G/DL) 32.5 L RDW (11.5 - 14.5 %) 15.3 H Plt Count (130 - 400 /CUMM) 141 MPV (7.4 - 10.4 FL) 7.9 Gran % (42.2 - 75.2 %) 68.6 Lymphocytes % (20.5 - 51.1 %) 24.3 Monocytes % (1.7 - 9.3 %) 4.3 Eosinophils % (0 - 5 %) 2.4 Basophils % (0.0 - 2.0 %) 0.4 Absolute Granulocytes (1.4 - 6.5 /CUMM) 8.1 H Absolute Lymphocytes (1.2 - 3.4 /CUMM) 2.9 Absolute Monocytes (0.10 - 0.60 /CUMM) 0.5 Absolute Eosinophils (0.0 - 0.7 /CUMM) 0.3 Absolute Basophils (0.0 - 0.2 /CUMM) 0 Urines Urinalysis LIGHT H Urine Color (YEL,AMB,STR) YEL Urine Clarity (CLEAR) CLDY H Urine pH (5.0 - 8.0) 5.5 Ur Specific [place] (1.001 - 1.035) 1.025 Urine Protein (NEG,<30 MG/DL) NEG Urine Ketones (NEG) NEG Urine Nitrite (NEG) POS H Urine Bilirubin (NEG) NEG Urine Urobilinogen (0.1 - 1.0 EU/dl) 0.2 Ur Leukocyte Esterase (NEG) TRACE H Ur Microscopic SEDIMENT EXAMINED Urine RBC (0 - 5 /HPF) 10-15 H Urine WBC (0 - 2 /HPF) 15-25 H Urine Bacteria (NEG/NONE) MANY H Urine Mucus (FEW,NONE) FEW Micro UA Comment Urine Hemoglobin (NEG) MOD H Urine Glucose (N MG/DL) NEG 12/20 12/20 2155 2150 Chemistry Sodium (137 - 145 mmol/L) 138 Potassium (3.5 - 5.1 mmol/L) 4.8 Chloride (98 - 107 mmol/L) 101 Carbon Dioxide (22 - 30 mmol/L) 29 Anion Gap (5 - 16) 8 BUN (9 - 20 mg/dL) 18 Creatinine (0.7 - 1.2 mg/dL) 1.1 Estimated GFR (>60 ml/min) > 60 BUN/Creatinine Ratio (7 - 25 %) 16.4 Glucose (65 - 99 mg/dL) 120 H Lactic Acid (0.7 - 2.1 mmol/L) 2.2 H Calcium (8.4 - 10.2 mg/dL) 8.8 Total Bilirubin (0.2 - 1.3 mg/dL) 0.6 AST (17 - 59 U/L) 35 ALT (21 - 72 U/L) 27 Alkaline Phosphatase (< 127 U/L) 83 Troponin I (<0.11 ng/ml) 0.01 Total Protein (6.3 - 8.2 g/dL) 6.9 Albumin (3.5 - 5.0 g/dL) 3.4 L Globulin (1.9 - 4.2 gm/dL) 3.5 Albumin/Globulin Ratio (1.1 - 2.2 %) 1.0 L Coagulation PT (9.4 - 12.5 SEC) 19.3 H INR (0.90 - 1.17) 1.76 H APTT (25 - 37 SEC) 33 Hematology CBC w Diff NO MAN DIFF REQ WBC (4.8 - 10.8 /CUMM) 12.9 H RBC (4.70 - 6.10 /CUMM) 4.07 L Hgb (14.0 - 18.0 G/DL) 11.5 L Hct (42 - 52 %) 35.0 L MCV (80.0 - 94.0 FL) 85.8 MCH (27.0 - 31.0 PG) 28.3 MCHC (33.0 - 37.0 G/DL) 33.0 RDW (11.5 - 14.5 %) 15.3 H Plt Count (130 - 400 /CUMM) 169 MPV (7.4 - 10.4 FL) 7.4 Gran % (42.2 - 75.2 %) 47.4 Lymphocytes % (20.5 - 51.1 %) 38.7 Monocytes % (1.7 - 9.3 %) 8.9 Eosinophils % (0 - 5 %) 4.5 Basophils % (0.0 - 2.0 %) 0.5 Absolute Granulocytes (1.4 - 6.5 /CUMM) 6.1 Absolute Lymphocytes (1.2 - 3.4 /CUMM) 5.0 H Absolute Monocytes (0.10 - 0.60 /CUMM) 1.1 H Absolute Eosinophils (0.0 - 0.7 /CUMM) 0.6 Absolute Basophils (0.0 - 0.2 /CUMM) 0.1 Assessment/Plan Assessment/Plan POD0 sp EVAR/aortic cuff repair for endoleak aaa, remains in icu intubated, now off pressors with SBP stable by cuff, 160 by socorro, with stable H&H, with oozing from TLC and riggs, though no hematoma at groins. P- will dw Dr. Al. repeat CTA at 10am to assess repair. keep npo, ivf, intubated until results of CTA. keep riggs, tlc in place. prn pain meds. ? sedation while tubed if continues to fight Core Measures Venous Thromboembolism VTE Risk Factors Acute Medical Illness No Mechanical VTE Prophylaxis d/t N/A MechProphylax Ordered No VTE Pharm Prophylaxis d/t Surgical Contraindication
[2017-12-21 08:00] VITALS: BP 134/70
--- NOTE | 2017-12-21 10:24 | RADIOLOGY REPORT ---
EXAMINATION: XR CHEST CLINICAL INFORMATION: Abdominal aortic aneurysm stent. COMPARISON: CT 12/20/2016. TECHNIQUE: Intraoperative fluoroscopic guidance was provided in the operating room for Dr. Casas to perform an abdominal aortic aneurysm stenting. FLUOROSCOPY TIME: 586 seconds. Total number of images: 18 cine clips. FINDINGS: Multiple cine fluoroscopic runs demonstrate the presence of an endovascular stent graft with endoleak. The final image suggests extension of the existing stent graft. IMPRESSION: Abdominal aortic aneurysm stent graft. Refer to operative notes for details.
--- NOTE | 2017-12-21 12:14 | Cons- Cardiology ---
General Information and HPI Consulting Request Date of Consult: 12/21/17 Requested By: Bhaskar Al MD Reason for Consult: Status post abdominal aneurysm repair Source of Information: patient, family, old records Exam Limitations: no limitations History of Present Illness: The patient is an 82-year-old gentleman with a past medical history of coronary artery disease (status post interventions as well as bypass in 1983), AICD implantation, atrial fibrillation and ischemic cardiomyopathy (LVEF improved, currently at 50-55%), chronic congestive heart failure with preserved LV systolic function, and, hyperlipidemia, moderate mitral regurgitation, pulmonary fibrosis and an abdominal aortic aneurysm repair. He presented with rupture of an infrarenal abdominal aortic aneurysm is now status post repair of the same ( endovascular). From a cardiac standpoint, the patient is overall stable. He had recently undergone an evaluation by his primary solar electric/photovoltaic installer 6 days ago and a recent echocardiogram which demonstrated a preserved LV systolic function of 50-55%. AICD interrogations have been within normal limits. Preoperatively, he has been described as active, performing 46 metastases of physical activity on a regular basis without difficulty. The patient underwent an EVAR/aortic cuff repair for an endoleak this a.m. No intraoperative or postoperative complications were noted. Allergies/Medications Allergies: Coded Allergies: NO KNOWN ALLERGIES (10/30/11) Home Med List: Albuterol Sulfate (Proair Hfa) 90 MCG HFA.AER.AD 2 PUF INH 4XDAILY RESP. ( Reported) Apixaban (Eliquis) 5 MG TABLET 1 TAB PO BID BLOOD THINNER (Reported) Aspirin (Ecotrin*) 81 MG TABLET.DR 1 TAB PO QPM HEART/BLOOD (Reported) Atorvastatin Calcium 20 MG TABLET 1 TAB PO DAILY CHOLESTEROL (Reported) Candesartan Cilexetil 4 MG TABLET 1 TAB PO DAILY BP (Reported) Ezetimibe (Zetia) 10 MG TABLET 1 TAB PO DAILY CHOLESTEROL (Reported) Magnesium Oxide (Magnesium) (Unknown Strength) CAPSULE (Unknown Dose) PO DAILY SUPPLEMENT (Reported) Metoprolol Succinate 50 MG TAB.ER.24H 1 TAB PO DAILY HEART/BP (Reported) Nortriptyline HCl 75 MG CAPSULE 175 MG PO QHS DEPRESSION (Reported) Current Medications: Current Medications Sig/Sulaiman Start time Last Medication Dose Route Stop Time Status Admin Acetaminophen 1,000 MG Q6P PRN 12/21 0330 AC IV Acetaminophen 1,000 MG ONCE ONE 12/205 DC 12/20 N/A 1 UNIT IV 12/20 222 2209 Albuterol Sulfate 3 ML BID 12/21 1000 AC INH Atorvastatin Calcium 20 MG 1700 12/21 1700 AC PO Dextrose/Sodium 1,000 ML Q10H 12/21 0730 AC 12/21 Chloride IV 0815 Hydromorphone HCl 1 MG Q4P PRN 12/21 0330 DC IV Hydromorphone HCl 0 .STK-MED ONE 12/21 0051 DC .ROUTE Hydromorphone HCl 0.5 MG ONCE ONE 12/21 0045 DC 12/21 IV 12/21 0046 0046 Lactated Ringer's 1,000 ML Q10H 12/21 0330 DC 12/21 IV 0350 Lorazepam 2 MG ONE ONE 12/21 0400 DC 12/21 IV 12/21 0401 0350 Magnesium Sulfate 1 GM Q2H 12/21 0900 AC 12/21 Dextrose/Water 100 ML IV 12/21 1259 0915 Morphine Sulfate 2 MG Q2P PRN 12/21 0730 AC IV Morphine Sulfate 2 MG Q6P PRN 12/21 0330 DC IV Norepinephrine 0 .STK-MED ONE 12/21 0038 DC IV Norepinephrine 4 MG ONCE ONE 12/21 0030 DC Sodium Chloride 250 ML IV 12/21 003 Ondansetron HCl 4 MG Q6 PRN 12/21 0330 AC IV Pantoprazole Sodium 40 MG DAILY 12/21 0400 AC 12/21 IV 0536 Phenylephrine HCl 0 .STK-MED ONE 12/21 0042 DC .ROUTE Phenylephrine HCl 0 .STK-MED ONE 12/21 0038 DC .ROUTE Phenylephrine HCl 40 MG ONCE ONE 12/21 0030 DC Sodium Chloride 250 ML IV 12/21 0031 Sodium Chloride 1,000 ML BOLUS ONE 12/20 2345 DC / IV 12/21 0044 2330 Sodium Chloride 1,000 ML BOLUS ONE 12/20 220 DC / IV 12/20 225 2200 Vasopressin 40 UNITS Q16H 12/21 0030 DC Sodium Chloride 100 ML IV Review of Systems Review of Systems: A full review of systems is not able to be performed secondary to the patient being intubated. Past History Travel History Traveled to [place] past 21 day No Medical History Blood Transfusion Hx: Yes Neurological: NONE EENT: NONE Cardiovascular: aortic aneurysm, AFIB, hypertension, hyperlipidemia, CARDIAC BIPASS L SIDE PACER/DEFIB Respiratory: bronchitis, emphysema, PULMONARY FIBROSIS Gastrointestinal: constipation, HERNIA L GROIN Hepatic: NONE Renal: NONE Musculoskeletal: COMPRESSION FX Psychiatric: depression Endocrine: NONE Blood Disorders: NONE Cancer(s): NONE STOCK SHIPPER/Reproductive: NONE Surgical History Surgical History: CABG, AAA, APPEDNECTOMY Psychosocial History Where Do You Live? Home Smoking Status: Former Smoker ETOH Use: denies use Functional Ability ADLs Independent: dressing, eating (the), toileting, bathing. Ambulation: independent IADLs Independent: housework. Exam & Diagnostic Data Vital Signs and I&O Vital Signs Date Time Temp Pulse Resp B/P B/P Pulse O2 O2 Flow FiO2 Mean Ox Delivery Rate 03/05 1145 35 03/05 0800 50 03/05 0800 97.3 68 16 134/70 100 Ventilator 50% 03/05 0555 50 03/05 0549 60 03/05 0500 100 Ventilator 50% 03/05 0500 96.5 69 18 140/80 100 Ventilator 50% 03/05 0418 60 03/05 0329 100 03/05 0026 96.5 72 18 136/85 100 Nasal 2.0L Cannula 03/05 0022 98.8 74 20 136/85 100 Nasal 2.0L Cannula 03/05 0018 70 18 122/79 99 Nasal 2.0L Cannula 03/05 0011 98.0 71 18 136/82 98 Nasal 2.0L Cannula 03/05 0006 70 18 130/70 99 Nasal 2.0L Cannula 03/05 0003 97.6 63 18 137/86 100 Nasal 2.0L Cannula 03/04 2345 69 18 132/75 98 Nasal 2.0L Cannula 03/04 2338 96.5 71 18 149/78 99 Nasal 2.0L Cannula 03/04 2334 98.0 71 22 138/80 99 Nasal 2.0L Cannula 03/04 2327 70 20 133/75 99 Nasal 2.0L Cannula 03/04 2323 70 18 118/70 97 Nasal 2.0L Cannula 03/04 2300 99 Nasal 2.0L Cannula 03/04 2237 70 18 100/67 96 Nasal 2.0L Cannula 03/04 2227 97.8 70 18 101/63 97 Nasal 2.0L Cannula 03/04 2209 97.2 03/04 2203 73 18 97/59 96 Nasal 2.0L Cannula 12/20 2199 76 18 82/60 96 Nasal 2.0L Cannula 12/20 2199 70 18 85/56 97 Nasal 2.0L Cannula 12/20 2156 97 Room Air 12/20 2136 97.2 79 22 93/56 100 Nasal 2.0L Cannula Intake & Output 12/21 0000 12/20 0000 Intake Total 2300 1000 Output Total 455 Balance 1845 1000 Intake, IV 2300 1000 Number 0 Bowel Movements Output, Urine 455 Patient 225 lb 170 lb Weight Weight Bed scale Estimated Measurement Method Physical Exam: General: Nontoxic, no apparent distress, intubated, answers questions appropriately. HEENT: Sclera and conjunctiva within normal limits, without xanthelasmas. Neck: Carotids 2+ without bruits. Respiratory: Clear to auscultation, air movement is good, without accessory respiratory muscle use. Heart: Regular rate and rhythm, without murmurs, without JVD. Abdomen: Soft, nontender, no masses, normoactive bowel sounds. Extremities: Without clubbing, cyanosis, without edema. Neuro: Nonfocal exam, strength, 5 out of 5 Skin: Within normal limits without lesions. Psych: Mood and affect: Normal Labs/Brian Results: Laboratory Tests 12/21 12/21 12/21 0855 0450 0450 Blood Gas pH (7.35 - 7.45 PH) 7.34 L pCO2 (35 - 45 TORR) 51 H pO2 (80 - 100 TORR) 123 H HCO3 (21 - 28 MEQ/L) 27 ABG O2 Sat (Measured) (>96.0 %) 97.0 Carboxyhemoglobin (1.5 - 5.0 %) 0.9 L O2 Concentration % 40% Respiration Rate (BPM) 16 O2 Delivery Method VENT Vent Mode AC Expiratory Pressure (CMH2O/P) 5 Tidal Volume (CC) 500 Chemistry Sodium (137 - 145 mmol/L) 135 L Potassium (3.5 - 5.1 mmol/L) 5.1 Chloride (98 - 107 mmol/L) 104 Carbon Dioxide (22 - 30 mmol/L) 26 Anion Gap (5 - 16) 5 BUN (9 - 20 mg/dL) 14 Creatinine (0.7 - 1.2 mg/dL) 0.8 Estimated GFR (>60 ml/min) > 60 Glucose (65 - 99 mg/dL) 119 H Lactic Acid (0.7 - 2.1 mmol/L) 1.1 Calcium (8.4 - 10.2 mg/dL) 7.7 L Phosphorus (2.5 - 4.5 mg/dL) 3.7 Magnesium (1.6 - 2.3 mg/dL) 1.7 Total Bilirubin (0.2 - 1.3 mg/dL) 1.4 H AST (17 - 59 U/L) 23 ALT (21 - 72 U/L) 22 Albumin (3.5 - 5.0 g/dL) 2.5 L Coagulation PT (9.4 - 12.5 SEC) 16.4 H INR (0.90 - 1.17) 1.50 H APTT (25 - 37 SEC) 35 Hematology CBC w Diff NO MAN DIFF REQ WBC (4.8 - 10.8 /CUMM) 9.8 RBC (4.70 - 6.10 /CUMM) 3.89 L Hgb (14.0 - 18.0 G/DL) 10.8 L Hct (42 - 52 %) 33.3 L MCV (80.0 - 94.0 FL) 85.7 MCH (27.0 - 31.0 PG) 27.7 MCHC (33.0 - 37.0 G/DL) 32.3 L RDW (11.5 - 14.5 %) 15.6 H Plt Count (130 - 400 /CUMM) 122 L MPV (7.4 - 10.4 FL) 7.7 Gran % (42.2 - 75.2 %) 69.0 Lymphocytes % (20.5 - 51.1 %) 22.3 Monocytes % (1.7 - 9.3 %) 7.9 Eosinophils % (0 - 5 %) 0.5 Basophils % (0.0 - 2.0 %) 0.3 Absolute Granulocytes (1.4 - 6.5 /CUMM) 6.8 H Absolute Lymphocytes (1.2 - 3.4 /CUMM) 2.2 Absolute Monocytes (0.10 - 0.60 /CUMM) 0.8 H Absolute Eosinophils (0.0 - 0.7 /CUMM) 0 Absolute Basophils (0.0 - 0.2 /CUMM) 0 Miscellaneous Phlebotomy Draw Site [place] 12/21 12/21 12/21 12/21 0405 0300 0006 0000 Blood Gas pH (7.35 - 7.45 PH) 7.26 *L pCO2 (35 - 45 TORR) 55 H pO2 (80 - 100 TORR) 402 H HCO3 (21 - 28 MEQ/L) 26 ABG O2 Sat (Measured) (>96.0 %) 99.0 P-50 (Temp Corrected) Y Carboxyhemoglobin (1.5 - 5.0 %) 0.3 L O2 Concentration % 100% Temperature (97.0 - 100.0 FARH) 96.2 L Respiration Rate (BPM) 12 O2 Delivery Method ESPRIT Vent Mode AC Expiratory Pressure (CMH2O/P) 5 Tidal Volume (CC) 500 Chemistry Lactic Acid (0.7 - 2.1 mmol/L) Cancelled 1.1 Cancelled Miscellaneous Phlebotomy Draw Site [place] 12/20 12/20 7266 0983 Hematology CBC w Diff NO MAN DIFF REQ WBC (4.8 - 10.8 /CUMM) 11.8 H RBC (4.70 - 6.10 /CUMM) 3.78 L Hgb (14.0 - 18.0 G/DL) 10.6 L Hct (42 - 52 %) 32.7 L MCV (80.0 - 94.0 FL) 86.5 MCH (27.0 - 31.0 PG) 28.1 MCHC (33.0 - 37.0 G/DL) 32.5 L RDW (11.5 - 14.5 %) 15.3 H Plt Count (130 - 400 /CUMM) 141 MPV (7.4 - 10.4 FL) 7.9 Gran % (42.2 - 75.2 %) 68.6 Lymphocytes % (20.5 - 51.1 %) 24.3 Monocytes % (1.7 - 9.3 %) 4.3 Eosinophils % (0 - 5 %) 2.4 Basophils % (0.0 - 2.0 %) 0.4 Absolute Granulocytes (1.4 - 6.5 /CUMM) 8.1 H Absolute Lymphocytes (1.2 - 3.4 /CUMM) 2.9 Absolute Monocytes (0.10 - 0.60 /CUMM) 0.5 Absolute Eosinophils (0.0 - 0.7 /CUMM) 0.3 Absolute Basophils (0.0 - 0.2 /CUMM) 0 Urines Urinalysis LIGHT H Urine Color (YEL,AMB,STR) YEL Urine Clarity (CLEAR) CLDY H Urine pH (5.0 - 8.0) 5.5 Ur Specific [place] (1.001 - 1.035) 1.025 Urine Protein (NEG,<30 MG/DL) NEG Urine Ketones (NEG) NEG Urine Nitrite (NEG) POS H Urine Bilirubin (NEG) NEG Urine Urobilinogen (0.1 - 1.0 EU/dl) 0.2 Ur Leukocyte Esterase (NEG) TRACE H Ur Microscopic SEDIMENT EXAMINED Urine RBC (0 - 5 /HPF) 10-15 H Urine WBC (0 - 2 /HPF) 15-25 H Urine Bacteria (NEG/NONE) MANY H Urine Mucus (FEW,NONE) FEW Micro UA Comment Urine Hemoglobin (NEG) MOD H Urine Glucose (N MG/DL) NEG 12/20 12/20 2155 2150 Chemistry Sodium (137 - 145 mmol/L) 138 Potassium (3.5 - 5.1 mmol/L) 4.8 Chloride (98 - 107 mmol/L) 101 Carbon Dioxide (22 - 30 mmol/L) 29 Anion Gap (5 - 16) 8 BUN (9 - 20 mg/dL) 18 Creatinine (0.7 - 1.2 mg/dL) 1.1 Estimated GFR (>60 ml/min) > 60 BUN/Creatinine Ratio (7 - 25 %) 16.4 Glucose (65 - 99 mg/dL) 120 H Lactic Acid (0.7 - 2.1 mmol/L) 2.2 H Calcium (8.4 - 10.2 mg/dL) 8.8 Total Bilirubin (0.2 - 1.3 mg/dL) 0.6 AST (17 - 59 U/L) 35 ALT (21 - 72 U/L) 27 Alkaline Phosphatase (< 127 U/L) 83 Troponin I (<0.11 ng/ml) 0.01 Total Protein (6.3 - 8.2 g/dL) 6.9 Albumin (3.5 - 5.0 g/dL) 3.4 L Globulin (1.9 - 4.2 gm/dL) 3.5 Albumin/Globulin Ratio (1.1 - 2.2 %) 1.0 L Coagulation PT (9.4 - 12.5 SEC) 19.3 H INR (0.90 - 1.17) 1.76 H APTT (25 - 37 SEC) 33 Hematology CBC w Diff NO MAN DIFF REQ WBC (4.8 - 10.8 /CUMM) 12.9 H RBC (4.70 - 6.10 /CUMM) 4.07 L Hgb (14.0 - 18.0 G/DL) 11.5 L Hct (42 - 52 %) 35.0 L MCV (80.0 - 94.0 FL) 85.8 MCH (27.0 - 31.0 PG) 28.3 MCHC (33.0 - 37.0 G/DL) 33.0 RDW (11.5 - 14.5 %) 15.3 H Plt Count (130 - 400 /CUMM) 169 MPV (7.4 - 10.4 FL) 7.4 Gran % (42.2 - 75.2 %) 47.4 Lymphocytes % (20.5 - 51.1 %) 38.7 Monocytes % (1.7 - 9.3 %) 8.9 Eosinophils % (0 - 5 %) 4.5 Basophils % (0.0 - 2.0 %) 0.5 Absolute Granulocytes (1.4 - 6.5 /CUMM) 6.1 Absolute Lymphocytes (1.2 - 3.4 /CUMM) 5.0 H Absolute Monocytes (0.10 - 0.60 /CUMM) 1.1 H Absolute Eosinophils (0.0 - 0.7 /CUMM) 0.6 Absolute Basophils (0.0 - 0.2 /CUMM) 0.1 Assessment/Plan Assessment/Plan 82-year-old gentleman with a past medical history of coronary artery disease ( status post interventions as well as bypass in 1983), AICD implantation, atrial fibrillation and ischemic cardiomyopathy (LVEF improved, currently at 50-55%), chronic congestive heart failure with preserved LV systolic function, and, hyperlipidemia, moderate mitral regurgitation, pulmonary fibrosis and an abdominal aortic aneurysm repair. He presented with rupture of an infrarenal abdominal aortic aneurysm is now status post repair of the same (endovascular). Abdominal aortic aneurysm/postoperative: The patient presented with an emergent need for surgical repair of an abdominal aortic aneurysm. He underwent the same without significant perioperative complications. We will continue to monitor. At this time, we will as well attempt to maintain an overall euvolemic state. Coronary artery disease: The patient has been stable from a coronary artery disease standpoint preoperatively. We will continue his outpatient medication regimen as tolerated from a blood pressure standpoint. Given his recent abdominal aortic repair, a close blood pressure titration will need to be given. IV labetalol may be used as needed. AICD: The patient has an implanted AICD and has been without significant event by EP. We will continue to monitor this. If further operative intervention is needed, consideration of the application of a pacemaker magnet over the ICD to suppress therapy would be beneficial. Thank you for allowing us to participate in the care of your patient. Please do not hesitate to contact us further with any questions. Sincerely, Gordon Monsalve MD [facility] Consult Acknowledgment - Thank you for your consult request.
--- NOTE | 2017-12-21 12:32 | Operative Report ---
Operative/Inv Procedure Report Surgery Date: 12/21/17 Name of Procedure: 1- Aortogram 2 Endovascular repair Type 1A endoleak 28mmx 35mm cuff 4- Left iliac limb extension 14mm x 10cm 5- Perclose 6- US access Pre-Operative Diagnosis: Ruptured AAA Post-Operative Diagnosis: same Estimated Blood Loss: less than 50ml Surgeon/Head Of Quality: Bhaskar Al MD Anesthesia: general endotracheal tube Complications: None Condition: Stable Operative Indication: Rupture AAA Operative/Procedure Note Note: The patient was correctly identified and brought immediately into the OR from the ER. The CTA showed a acute aortic ruptured, the patient received fluids and blood in the ER and remeined relatively stable. Once, anesthesia had placed lines and intubated the patient, juan abdomen and both groins were sterely prepped and draped. US was used. The left [employer]NAGER cannulated as well the right. Selena placed, followed by an aortic wire and pig tail. Aortograms done. Multiple angiograms done and a type 1A endoleak noted and possible a type III left limb. The type I treated with a cuff, through a 18 FR sheath. folowed by angioplasty with a woody balloon.The pt got 3,000 u heparin. Then the left limb treated with an iliac extension measurements noted above and THERAPY TECH with 14 mm balloon. Completion angiogram done which showed a resolved endoleak. The sheath were removed and punctures repaired with the perclose devices. He remained stable through out and taken to the SICU. Findings: Type 1 endoleak, ruptured aorta. possible type III endoleak Discharge Disposition: Critical Care Unit CC: Adeline PARKS,Keyon Dunlap
--- NOTE | 2017-12-21 12:51 | PN- Vascular Surgery ---
Surgical Brief Attending Note Brief Attending Note: VASCULAR ATTENDING NOTE: Pt. is now POD #0 s/p EVAR for ruptured AAA. Pt. intubated bein g weaned for extubation. PE: AF/VSS Ext: B/L groins c/d/i, feet well perfused Labs: H & H stable A/P 1.) Stable from vasc. standopint 2.) Wean to extubate 3.) Care as per CCM 4.) No further CT imaging at this time as pt. is HD stable
--- NOTE | 2017-12-21 15:20 | PN- Att Addend ---
Attending Addendum Attending Brief Note Mr. Webb was interviewed and examined. His EMR was reviewed and the events of the previous morning were noted. He has just been successfully extubated after successful endovascular repair of a ruptured AAA. Of note is that the patient had been scheduled for an aortic ultrasound to occur on December 22. He is afebrile. Heart rate is a paced rhythm between 70 and 80. Respirations are 20 blood pressure is approximately 120/55 by cuff. He is in no acute distress. Lungs are clear. Heart reveals a regular rate and rhythm. Surgical wounds are satisfactory. Examination by the surgical team. WBC is 9,800 and H&H is 10.8/33.3 with a platelet count of 122,000. INR is 1.5. Electrolytes are essentially normal and glucose is mildly elevated at 119. Mr. Webb is status post endovascular repair of a ruptured AAA. His other problems include coronary artery disease, atrial fibrillation, hypertension, dyslipidemia, IPF, and chronic mild depression. We will resume his maintenance medications as dictated by the vascular surgical team. He may require additional pulmonary intervention secondary to his interstitial lung disease. We appreciate the input of Dr. Monsalve of the cardiology service. We will continue to follow for his medical issues.
[2017-12-21 16:00] VITALS: BP 118/62
[2017-12-22] VITALS: BP 124/66
[2017-12-22 05:24] LABS: ABSOLUTE BASOPHIL COUNT 0 /CUMM (0.0-0.2); ABSOLUTE EOSINOPHIL COUNT 0.4 /CUMM (0.0-0.7); ABSOLUTE GRANULOCYTE CT 4.1 /CUMM (1.4-6.5); ABSOLUTE LYMPH COUNT 2.5 /CUMM (1.2-3.4); ABSOLUTE MONOCYTE COUNT 1.1 /CUMM (0.10-0.60); BASOPHIL % 0.3 % (0.0-2.0); EOSINOPHIL % 4.8 % (0-5); GRANULOCYTE % 50.1 % (42.2-75.2); HEMATOCRIT 30.1 % (42-52); MEAN CORPUSCULAR HGB 28.6 PG (27.0-31.0); MEAN CORPUSCULAR HGB CONC 33.4 G/DL (33.0-37.0); MEAN CORPUSCULAR VOLUME 85.6 FL (80.0-94.0); MEAN PLATELET VOLUME 7.5 FL (7.4-10.4); PLATELET COUNT 105 /CUMM (130-400); RBC DISTRIBUTION WIDTH 15.9 % (11.5-14.5); RED BLOOD CELL CT 3.52 /CUMM (4.70-6.10); WHITE BLOOD CELL COUNT 8.1 /CUMM (4.8-10.8)
--- NOTE | 2017-12-22 06:12 | PN- Vascular Surgery ---
Subjective Subjective: feeling good, thirsty, mild r groin pain, no cp/sob, +flatus. extubated yesterday, on 2L Objective Vital Signs and I&Os Vital Signs Date Time Temp Pulse Resp B/P B/P Pulse O2 O2 Flow FiO2 Mean Ox Delivery Rate 12/22 0400 97 Nasal 2.0L Cannula 12/22 0000 98.3 78 24 124/66 98 Nasal 2.0L Cannula 12/22 0000 94 Nasal 2.0L Cannula 12/21 2224 94 158/86 12/21 2000 98 Nasal 2.0L Cannula 12/21 1600 96 Aerosol 30% Mask 12/21 1600 99.2 82 27 118/62 96 Aerosol 30% Mask 12/21 1449 96 Aerosol 30% Mask 12/21 1200 99 Ventilator 35% 12/21 1145 35 12/21 0800 50 12/21 0800 100 Ventilator 50% 12/21 0800 97.3 68 16 134/70 100 Ventilator 50% Intake & Output 12/22 0800 / 0000 / 1600 12/21 0800 12/21 0000 / 1600 Intake Total 644 140 8309 1000 Output Total 700 360 455 Balance 174 029 9396 1000 Intake, IV 042 211 0568 1000 Intake, Oral 120 0 Number 0 Bowel Movements Output, Urine 700 360 455 Patient 225 lb 170 lb Weight Weight Bed scale Estimated Measurement Method Physical Exam: gen- nad card- s1s2 rrr, occ pvc pulm- bs throughout, coarse abd- soft nt nd ext- bl groins: dressed cdi, r groin ttp, bl groins soft, no ecchymosis. calves soft nt, alps on. palp cp/pt bl Current Medications: Current Medications Sig/Sulaiman Start time Last Medication Dose Route Stop Time Status Admin Acetaminophen 1,000 MG Q6P PRN 12/21 0330 AC IV Albuterol Sulfate 3 ML BID 12/21 1000 AC INH Atorvastatin Calcium 20 MG 1700 12/21 1700 DC PO Dextrose/Sodium 1,000 ML Q10H 12/21 0730 AC 12/21 Chloride IV 2050 Hydromorphone HCl 1 MG Q4P PRN 12/21 0330 DC IV Lactated Ringer's 1,000 ML Q10H 12/21 0330 DC 12/21 IV 0350 Magnesium Sulfate 1 GM Q2H 12/21 0900 DC 03/05 Dextrose/Water 100 ML IV 12/21 1259 1100 Metoprolol Succinate 50 MG DAILY 12/21 2199 AC 12/21 PO 2224 Morphine Sulfate 2 MG Q2P PRN 12/21 0730 AC 12/22 IV 0557 Morphine Sulfate 2 MG Q6P PRN 12/21 0330 DC IV Nortriptyline HCl 150 MG AT BEDTIME 12/21 2199 AC 12/21 PO 2224 Ondansetron HCl 4 MG Q6 PRN 12/21 0330 AC IV Pantoprazole Sodium 40 MG DAILY 12/21 040 AC 12/21 IV 0536 Results Last 48 Hours of Labs: Laboratory Tests 12/22 12/21 12/21 0430 1225 0855 Blood Gas pH (7.35 - 7.45 PH) 7.36 7.34 L pCO2 (35 - 45 TORR) 44 51 H pO2 (80 - 100 TORR) 74 L 123 H HCO3 (21 - 28 MEQ/L) 24 27 ABG O2 Sat (Measured) (>96.0 %) 93.0 L 97.0 Carboxyhemoglobin (1.5 - 5.0 %) 1.2 L 0.9 L O2 Concentration % 30% 40% Respiration Rate (BPM) 16 16 O2 Delivery Method VENT VENT Vent Mode AC AC Expiratory Pressure (CMH2O/P) 5 5 Tidal Volume (CC) 550 500 Chemistry Sodium (137 - 145 mmol/L) 138 Potassium (3.5 - 5.1 mmol/L) 4.0 Chloride (98 - 107 mmol/L) 106 Carbon Dioxide (22 - 30 mmol/L) 29 Anion Gap (5 - 16) 4 L BUN (9 - 20 mg/dL) 10 Creatinine (0.7 - 1.2 mg/dL) 0.8 Estimated GFR (>60 ml/min) > 60 Glucose (65 - 99 mg/dL) 98 Calcium (8.4 - 10.2 mg/dL) 7.7 L Phosphorus (2.5 - 4.5 mg/dL) 2.8 Magnesium (1.6 - 2.3 mg/dL) 1.9 Total Bilirubin (0.2 - 1.3 mg/dL) 0.6 AST (17 - 59 U/L) 19 ALT (21 - 72 U/L) 19 L Albumin (3.5 - 5.0 g/dL) 2.4 L Hematology CBC w Diff NO MAN DIFF REQ WBC (4.8 - 10.8 /CUMM) 8.1 RBC (4.70 - 6.10 /CUMM) 3.52 L Hgb (14.0 - 18.0 G/DL) 10.1 L Hct (42 - 52 %) 30.1 L MCV (80.0 - 94.0 FL) 85.6 MCH (27.0 - 31.0 PG) 28.6 MCHC (33.0 - 37.0 G/DL) 33.4 RDW (11.5 - 14.5 %) 15.9 H Plt Count (130 - 400 /CUMM) 105 L MPV (7.4 - 10.4 FL) 7.5 Gran % (42.2 - 75.2 %) 50.1 Lymphocytes % (20.5 - 51.1 %) 30.8 Monocytes % (1.7 - 9.3 %) 14.0 H Eosinophils % (0 - 5 %) 4.8 Basophils % (0.0 - 2.0 %) 0.3 Absolute Granulocytes (1.4 - 6.5 /CUMM) 4.1 Absolute Lymphocytes (1.2 - 3.4 /CUMM) 2.5 Absolute Monocytes (0.10 - 0.60 /CUMM) 1.1 H Absolute Eosinophils (0.0 - 0.7 /CUMM) 0.4 Absolute Basophils (0.0 - 0.2 /CUMM) 0 Miscellaneous Phlebotomy Draw Site [facility] 12/21 12/21 12/21 0450 0450 0405 Blood Gas pH (7.35 - 7.45 PH) 7.26 *L pCO2 (35 - 45 TORR) 55 H pO2 (80 - 100 TORR) 402 H HCO3 (21 - 28 MEQ/L) 26 ABG O2 Sat (Measured) (>96.0 %) 99.0 P-50 (Temp Corrected) Y Carboxyhemoglobin (1.5 - 5.0 %) 0.3 L O2 Concentration % 100% Temperature (97.0 - 100.0 FARH) 96.2 L Respiration Rate (BPM) 12 O2 Delivery Method ESPRIT Vent Mode AC Expiratory Pressure (CMH2O/P) 5 Tidal Volume (CC) 500 Chemistry Sodium (137 - 145 mmol/L) 135 L Potassium (3.5 - 5.1 mmol/L) 5.1 Chloride (98 - 107 mmol/L) 104 Carbon Dioxide (22 - 30 mmol/L) 26 Anion Gap (5 - 16) 5 BUN (9 - 20 mg/dL) 14 Creatinine (0.7 - 1.2 mg/dL) 0.8 Estimated GFR (>60 ml/min) > 60 Glucose (65 - 99 mg/dL) 119 H Lactic Acid (0.7 - 2.1 mmol/L) 1.1 Calcium (8.4 - 10.2 mg/dL) 7.7 L Phosphorus (2.5 - 4.5 mg/dL) 3.7 Magnesium (1.6 - 2.3 mg/dL) 1.7 Total Bilirubin (0.2 - 1.3 mg/dL) 1.4 H AST (17 - 59 U/L) 23 ALT (21 - 72 U/L) 22 Albumin (3.5 - 5.0 g/dL) 2.5 L Coagulation PT (9.4 - 12.5 SEC) 16.4 H INR (0.90 - 1.17) 1.50 H APTT (25 - 37 SEC) 35 Hematology CBC w Diff NO MAN DIFF REQ WBC (4.8 - 10.8 /CUMM) 9.8 RBC (4.70 - 6.10 /CUMM) 3.89 L Hgb (14.0 - 18.0 G/DL) 10.8 L Hct (42 - 52 %) 33.3 L MCV (80.0 - 94.0 FL) 85.7 MCH (27.0 - 31.0 PG) 27.7 MCHC (33.0 - 37.0 G/DL) 32.3 L RDW (11.5 - 14.5 %) 15.6 H Plt Count (130 - 400 /CUMM) 122 L MPV (7.4 - 10.4 FL) 7.7 Gran % (42.2 - 75.2 %) 69.0 Lymphocytes % (20.5 - 51.1 %) 22.3 Monocytes % (1.7 - 9.3 %) 7.9 Eosinophils % (0 - 5 %) 0.5 Basophils % (0.0 - 2.0 %) 0.3 Absolute Granulocytes (1.4 - 6.5 /CUMM) 6.8 H Absolute Lymphocytes (1.2 - 3.4 /CUMM) 2.2 Absolute Monocytes (0.10 - 0.60 /CUMM) 0.8 H Absolute Eosinophils (0.0 - 0.7 /CUMM) 0 Absolute Basophils (0.0 - 0.2 /CUMM) 0 Miscellaneous Phlebotomy Draw Site [facility] 12/21 12/21 12/21 0300 0006 0000 Chemistry Lactic Acid (0.7 - 2.1 mmol/L) Cancelled 1.1 Cancelled 12/20 12/20 2344 2331 Hematology CBC w Diff NO MAN DIFF REQ WBC (4.8 - 10.8 /CUMM) 11.8 H RBC (4.70 - 6.10 /CUMM) 3.78 L Hgb (14.0 - 18.0 G/DL) 10.6 L Hct (42 - 52 %) 32.7 L MCV (80.0 - 94.0 FL) 86.5 MCH (27.0 - 31.0 PG) 28.1 MCHC (33.0 - 37.0 G/DL) 32.5 L RDW (11.5 - 14.5 %) 15.3 H Plt Count (130 - 400 /CUMM) 141 MPV (7.4 - 10.4 FL) 7.9 Gran % (42.2 - 75.2 %) 68.6 Lymphocytes % (20.5 - 51.1 %) 24.3 Monocytes % (1.7 - 9.3 %) 4.3 Eosinophils % (0 - 5 %) 2.4 Basophils % (0.0 - 2.0 %) 0.4 Absolute Granulocytes (1.4 - 6.5 /CUMM) 8.1 H Absolute Lymphocytes (1.2 - 3.4 /CUMM) 2.9 Absolute Monocytes (0.10 - 0.60 /CUMM) 0.5 Absolute Eosinophils (0.0 - 0.7 /CUMM) 0.3 Absolute Basophils (0.0 - 0.2 /CUMM) 0 Urines Urinalysis LIGHT H Urine Color (YEL,AMB,STR) YEL Urine Clarity (CLEAR) CLDY H Urine pH (5.0 - 8.0) 5.5 Ur Specific [place] (1.001 - 1.035) 1.025 Urine Protein (NEG,<30 MG/DL) NEG Urine Ketones (NEG) NEG Urine Nitrite (NEG) POS H Urine Bilirubin (NEG) NEG Urine Urobilinogen (0.1 - 1.0 EU/dl) 0.2 Ur Leukocyte Esterase (NEG) TRACE H Ur Microscopic SEDIMENT EXAMINED Urine RBC (0 - 5 /HPF) 10-15 H Urine WBC (0 - 2 /HPF) 15-25 H Urine Bacteria (NEG/NONE) MANY H Urine Mucus (FEW,NONE) FEW Micro UA Comment Urine Hemoglobin (NEG) MOD H Urine Glucose (N MG/DL) NEG 12/20 215 Chemistry Sodium (137 - 145 mmol/L) 138 Potassium (3.5 - 5.1 mmol/L) 4.8 Chloride (98 - 107 mmol/L) 101 Carbon Dioxide (22 - 30 mmol/L) 29 Anion Gap (5 - 16) 8 BUN (9 - 20 mg/dL) 18 Creatinine (0.7 - 1.2 mg/dL) 1.1 Estimated GFR (>60 ml/min) > 60 BUN/Creatinine Ratio (7 - 25 %) 16.4 Glucose (65 - 99 mg/dL) 120 H Lactic Acid (0.7 - 2.1 mmol/L) 2.2 H Calcium (8.4 - 10.2 mg/dL) 8.8 Total Bilirubin (0.2 - 1.3 mg/dL) 0.6 AST (17 - 59 U/L) 35 ALT (21 - 72 U/L) 27 Alkaline Phosphatase (< 127 U/L) 83 Troponin I (<0.11 ng/ml) 0.01 Total Protein (6.3 - 8.2 g/dL) 6.9 Albumin (3.5 - 5.0 g/dL) 3.4 L Globulin (1.9 - 4.2 gm/dL) 3.5 Albumin/Globulin Ratio (1.1 - 2.2 %) 1.0 L Coagulation PT (9.4 - 12.5 SEC) 19.3 H INR (0.90 - 1.17) 1.76 H APTT (25 - 37 SEC) 33 Hematology CBC w Diff NO MAN DIFF REQ WBC (4.8 - 10.8 /CUMM) 12.9 H RBC (4.70 - 6.10 /CUMM) 4.07 L Hgb (14.0 - 18.0 G/DL) 11.5 L Hct (42 - 52 %) 35.0 L MCV (80.0 - 94.0 FL) 85.8 MCH (27.0 - 31.0 PG) 28.3 MCHC (33.0 - 37.0 G/DL) 33.0 RDW (11.5 - 14.5 %) 15.3 H Plt Count (130 - 400 /CUMM) 169 MPV (7.4 - 10.4 FL) 7.4 Gran % (42.2 - 75.2 %) 47.4 Lymphocytes % (20.5 - 51.1 %) 38.7 Monocytes % (1.7 - 9.3 %) 8.9 Eosinophils % (0 - 5 %) 4.5 Basophils % (0.0 - 2.0 %) 0.5 Absolute Granulocytes (1.4 - 6.5 /CUMM) 6.1 Absolute Lymphocytes (1.2 - 3.4 /CUMM) 5.0 H Absolute Monocytes (0.10 - 0.60 /CUMM) 1.1 H Absolute Eosinophils (0.0 - 0.7 /CUMM) 0.6 Absolute Basophils (0.0 - 0.2 /CUMM) 0.1 Assessment/Plan Assessment/Plan A- POD2 sp endovascualr repair rupture aaa, extubated and stable on 2L NC with minld groin soreness P- clr liquids hl later dc riggs some home meds restarted prn pain meds ?out of icu, ?oob titrate o2 will dw attending Core Measures Venous Thromboembolism VTE Risk Factors Acute Medical Illness No Mechanical VTE Prophylaxis d/t N/A MechProphylax Ordered No VTE Pharm Prophylaxis d/t Surgical Contraindication
--- NOTE | 2017-12-22 07:50 | PN- Resident CRCU ---
RamirezamanuelEmilia 12/22/17 0750: Subjective HPI/CRCU Issues: endoleak AAA repair hypoxemic respiratory failure, hx of IPF resolved hypotension 24 Hour Events: no overnight events reported. Seen and examined patient. Feels some discomfort after riggs was removed. Denies chest pain, shortness of breath. Objective Vital Signs & I&O Last 8 Hrs of Vitals and I&O: Intake & Output 12/22 1600 12/22 0800 03 0000 Intake Total 955 904 Output Total 575 700 Balance 380 204 Intake, IV 835 784 Intake, Oral 120 120 Output, Urine 575 700 Laboratory Tests 12/22 0430 Chemistry Sodium (137 - 145 mmol/L) 138 Potassium (3.5 - 5.1 mmol/L) 4.0 Chloride (98 - 107 mmol/L) 106 Carbon Dioxide (22 - 30 mmol/L) 29 Anion Gap (5 - 16) 4 L BUN (9 - 20 mg/dL) 10 Creatinine (0.7 - 1.2 mg/dL) 0.8 Estimated GFR (>60 ml/min) > 60 Glucose (65 - 99 mg/dL) 98 Calcium (8.4 - 10.2 mg/dL) 7.7 L Phosphorus (2.5 - 4.5 mg/dL) 2.8 Magnesium (1.6 - 2.3 mg/dL) 1.9 Total Bilirubin (0.2 - 1.3 mg/dL) 0.6 AST (17 - 59 U/L) 19 ALT (21 - 72 U/L) 19 L Albumin (3.5 - 5.0 g/dL) 2.4 L Hematology CBC w Diff NO MAN DIFF REQ WBC (4.8 - 10.8 /CUMM) 8.1 RBC (4.70 - 6.10 /CUMM) 3.52 L Hgb (14.0 - 18.0 G/DL) 10.1 L Hct (42 - 52 %) 30.1 L MCV (80.0 - 94.0 FL) 85.6 MCH (27.0 - 31.0 PG) 28.6 MCHC (33.0 - 37.0 G/DL) 33.4 RDW (11.5 - 14.5 %) 15.9 H Plt Count (130 - 400 /CUMM) 105 L MPV (7.4 - 10.4 FL) 7.5 Gran % (42.2 - 75.2 %) 50.1 Lymphocytes % (20.5 - 51.1 %) 30.8 Monocytes % (1.7 - 9.3 %) 14.0 H Eosinophils % (0 - 5 %) 4.8 Basophils % (0.0 - 2.0 %) 0.3 Absolute Granulocytes (1.4 - 6.5 /CUMM) 4.1 Absolute Lymphocytes (1.2 - 3.4 /CUMM) 2.5 Absolute Monocytes (0.10 - 0.60 /CUMM) 1.1 H Absolute Eosinophils (0.0 - 0.7 /CUMM) 0.4 Absolute Basophils (0.0 - 0.2 /CUMM) 0 Exam General Appearance: alert, awake, comfortable Respiratory: quiet respiration Cardiovascular: regular rate/rhythm Weaning Parameters NIF: 38 Minute Volume: 6.7 Resp rate: 25 Vt: 300 Heart Rate: 76 Weaning Schedule Start Time: 1325 Minute Volume: 19.0 Resp Rate: 25 Vt: 737 Heart Rate: 76 End Time: 1410 Minute Volume: 17.7 Resp Rate: 24 Vt: 600 Heart Rate: 80 Current Medications: Current Medications Sig/Sulaiman Start time Last Medication Dose Route Stop Time Status Admin Acetaminophen 1,000 MG Q6P PRN 12/21 0330 DC IV Albuterol Sulfate 3 ML BID 12/21 1000 AC INH Apixaban 2.5 MG BID 12/22 1000 AC 12/22 PO 1100 Aspirin 81 MG DAILY 12/22 1000 AC 12/22 PO 1100 Atorvastatin Calcium 20 MG 1700 12/21 1700 DC PO Ciprofloxacin 250 MG BID 12/22 2200 AC PO 12/25 1001 Dextrose/Sodium 1,000 ML CONTINOUS INFUSION 12/23 0330 DC 12/22 Chloride IV 0648 Dextrose/Sodium 1,000 ML Q10H 12/21 0730 DC 12/21 Chloride IV 2050 Ezetimibe 10 MG DAILY 12/22 1000 AC 12/22 PO 1100 Metoprolol Succinate 50 MG DAILY 12/21 2200 AC 12/22 PO 1155 Morphine Sulfate 2 MG Q2P PRN 12/22 0630 AC IV Morphine Sulfate 2 MG Q2P PRN 12/21 0730 DC 12/22 IV 0557 Nortriptyline HCl 150 MG AT BEDTIME 12/21 2199 AC 03/05 PO 2224 Ondansetron HCl 4 MG Q6 PRN 12/21 0330 AC IV Oxycodone/ 1 TAB Q4P PRN 12/22 0615 AC 12/22 Acetaminophen PO 1204 Oxycodone/ 2 TAB Q4P PRN 12/22 0615 AC Acetaminophen PO Pantoprazole Sodium 40 MG DAILY 12/21 0400 AC 12/22 IV 1100 Impression/Plan Impression/Problem List Impression: 82 yr old man w/ a PMHx of CAD s/p CABG 1993, stent placed in 1994, ischemic cardiomyopathy EF 50% s/p AICD, Afib on eliquis, MR, Pulmonary fibrosis on 2L supplemental oxygen, past smoker quit 20 yrs ago, previous [id number] stent graft in place for aortic aneursym( dx'ed [address] Hartley) s/p endovascular aortic cuff repair for endoleak AAA assesment/plan: Respiratory- history of pulmonary fibrosis. extubated yesterday. doing well currently on home O2 of 2 L Infectious- leukocytosis is likely reactive. Continue to monitor for any signs of infection. No antibiotics are indicated this time. Circulatory-currently off pressors. Blood pressure goal systolic 100-140. cardiology on board DVT Ppx- ALPS for now restart AC per surgery. Riggs catheter removed today Problem List: 1. Hypoxia 2. AAA (abdominal aortic aneurysm, ruptured) Pain Ratin Tomorrow's Labs & Rationales: na Plan DVT/Prophylaxis: pharmacological Adeline PARKS,[place] 12/22/17 1352: Attending MD Review Statement Attending Sign Off Attending Cosign Statement: I have: examined this patient, reviewed [facility] EMR data, discussd w/resident/PA/ [employer], discussed mgmt plan w/pt, agreed w/resident/PA/[employer], amended to note. Other Findings: Mr. Webb was interviewed and examined. His EMR was reviewed. He denies chest pains, palpitations, shortness of breath, and lightheadedness. He still notes some groin pain. Tmax 99.2. Heart and respiratory rates are stable and satisfactory. Systolic blood pressure has ranged from the mid 120s to 140. Telemetry shows a paced rhythm with occasional PVCs. He is in no acute distress. Pulmonary exam is notable for decreased breath sounds with stable rales and expiratory wheezes. Cardiac exam shows regular rhythm with extrasystoles. His abdomen is soft and nontender. Pedal pulses are present. WBC has returned to normal. H&H is 10.1/30.1 with a platelet count of 105,000. His electrolytes and renal function are satisfactory. Mr. Webb is status post endovascular repair of a ruptured AAA. He is now back on his maintenance medication regimen with the exception of his antihypertensive and his supplemental magnesium. His diet is being advanced as well as his activity. I'm in agreement with these actions and we will continue to follow his blood pressure to determine when can we reinstitute his antihypertensive regimen. I agree that he may be downgraded to telemetry.
[2017-12-22 08:00] VITALS: BP 130/66
--- NOTE | 2017-12-22 10:24 | PN- Cardiology ---
Subjective Subjective: The patient is awake, alert The events of the last 24 hours as well as telemetry were reviewed. Review of Systems: The review of systems is negative for chest pains, palpitations nor lightheadedness. The remainder of the 14 point review of systems is noncontributory with the exception of above. Objective Vital Signs and I&Os Vital Signs Date Time Temp Pulse Resp B/P B/P Pulse O2 O2 Flow FiO2 Mean Ox Delivery Rate 12/23 799 96 Nasal 2.0L Cannula 12/22 08 97.8 75 22 130/66 98 Nasal 2.0L Cannula 12/22 0400 97 Nasal 2.0L Cannula 12/22 0000 98.3 78 24 124/66 98 Nasal 2.0L Cannula 12/22 0000 94 Nasal 2.0L Cannula 12/21 2224 94 158/86 12/21 2000 98 Nasal 2.0L Cannula 12/21 1600 96 Aerosol 30% Mask 12/21 1600 99.2 82 27 118/62 96 Aerosol 30% Mask 12/21 1449 96 Aerosol 30% Mask 12/21 1200 99 Ventilator 35% 12/21 1145 35 Intake & Output 12/22 1600 12/22 0800 03/ 0000 12/21 1600 12/21 0800 03/05 0000 Intake Total 955 705 542 0789 1000 Output Total 575 700 360 455 Balance 380 275 300 1486 1000 Intake, IV 835 914 181 7962 1000 Intake, Oral 120 120 0 Number 0 Bowel Movements Output, Urine 575 700 360 455 Patient 225 lb 170 lb Weight Weight Bed scale Estimated Measurement Method Physical Exam: General: Nontoxic, no apparent distress. HEENT: Sclera and conjunctiva within normal limits, without xanthelasmas. Neck: Carotids 2+ without bruits. Respiratory: Clear to auscultation, air movement is good, without accessory respiratory muscle use. Heart: Regular rate and rhythm, without murmurs, without JVD. Abdomen: Soft, nontender, no masses, normoactive bowel sounds. Extremities: Without clubbing, cyanosis, without edema. Neuro: Nonfocal exam, strength, 5 out of 5 Skin: Within normal limits without lesions. Psych: Mood and affect: Normal Current Medications: Current Medications Sig/Sulaiman Start time Last Medication Dose Route Stop Time Status Admin Acetaminophen 1,000 MG Q6P PRN 12/21 0330 DC IV Albuterol Sulfate 3 ML BID 12/21 1000 AC INH Apixaban 2.5 MG BID 12/22 1000 AC PO Aspirin 81 MG DAILY 12/22 1000 AC PO Atorvastatin Calcium 20 MG 1700 12/21 1700 DC PO Dextrose/Sodium 1,000 ML CONTINOUS INFUSION 12/23 0330 AC 12/22 Chloride IV 0648 Dextrose/Sodium 1,000 ML Q10H 12/21 0730 DC 12/21 Chloride IV 2050 Ezetimibe 10 MG DAILY 12/22 1000 AC PO Magnesium Sulfate 1 GM Q2H 12/21 0900 DC 12/21 Dextrose/Water 100 ML IV 12/21 1259 1100 Metoprolol Succinate 50 MG DAILY 12/21 220 AC 12/21 PO 2224 Morphine Sulfate 2 MG Q2P PRN 12/22 0630 AC IV Morphine Sulfate 2 MG Q2P PRN 12/21 0730 DC 12/22 IV 0557 Nortriptyline HCl 150 MG AT BEDTIME 12/21 2199 AC 12/21 PO 2224 Ondansetron HCl 4 MG Q6 PRN 12/21 0330 AC IV Oxycodone/ 1 TAB Q4P PRN 12/22 0615 AC Acetaminophen PO Oxycodone/ 2 TAB Q4P PRN 12/22 0615 AC Acetaminophen PO Pantoprazole Sodium 40 MG DAILY 12/21 0400 AC 12/21 IV 0536 Results Last 48 Hrs of Labs/Mics: Laboratory Tests 12/22/17 0430: Anion Gap 4 L, Estimated GFR > 60, Glucose 98, Calcium 7.7 L, Phosphorus 2.8, Magnesium 1.9, Total Bilirubin 0.6, AST 19, ALT 19 L, Albumin 2.4 L, CBC w Diff NO MAN DIFF REQ, RBC 3.52 L, MCV 85.6, MCH 28.6, MCHC 33.4, RDW 15.9 H, MPV 7.5, Gran % 50.1, Lymphocytes % 30.8, Monocytes % 14.0 H, Eosinophils % 4.8 , Basophils % 0.3, Absolute Granulocytes 4.1, Absolute Lymphocytes 2.5, Absolute Monocytes 1.1 H, Absolute Eosinophils 0.4, Absolute Basophils 0 12/21/17 1225: pH 7.36, pCO2 44, pO2 74 L, HCO3 24, ABG O2 Sat (Measured) 93.0 L, Carboxyhemoglobin 1.2 L, O2 Concentration % 30%, Respiration Rate 16, O2 Delivery Method VENT, Vent Mode AC, Expiratory Pressure 5, Tidal Volume 550, Phlebotomy Draw Site [place] 12/21/17 0855: pH 7.34 L, pCO2 51 H, pO2 123 H, HCO3 27, ABG O2 Sat (Measured) 97.0, Carboxyhemoglobin 0.9 L, O2 Concentration % 40%, Respiration Rate 16, O2 Delivery Method VENT, Vent Mode AC, Expiratory Pressure 5, Tidal Volume 500, Phlebotomy Draw Site [place] 12/21/17 0450: Lactic Acid 1.1 12/21/17 0450: Anion Gap 5, Estimated GFR > 60, Glucose 119 H, Calcium 7.7 L, Phosphorus 3.7, Magnesium 1.7, Total Bilirubin 1.4 H, AST 23, ALT 22, Albumin 2.5 L, PT 16.4 H, INR 1.50 H, APTT 35, CBC w Diff NO MAN DIFF REQ, RBC 3.89 L, MCV 85.7, MCH 27.7, MCHC 32.3 L, RDW 15.6 H, MPV 7.7, Gran % 69.0, Lymphocytes % 22.3, Monocytes % 7.9, Eosinophils % 0.5, Basophils % 0.3, Absolute Granulocytes 6.8 H, Absolute Lymphocytes 2.2, Absolute Monocytes 0.8 H, Absolute Eosinophils 0, Absolute Basophils 0 12/21/17 0405: pH 7.26 *L, pCO2 55 H, pO2 402 H, HCO3 26, ABG O2 Sat (Measured) 99.0, P-50 ( Temp Corrected) Y, Carboxyhemoglobin 0.3 L, O2 Concentration % 100%, Temperature 96.2 L, Respiration Rate 12, O2 Delivery Method ESPRIT, Vent Mode AC, Expiratory Pressure 5, Tidal Volume 500, Phlebotomy Draw Site [place] 12/21/17 0300: Lactic Acid Cancelled 12/21/17 0006: Lactic Acid 1.1 12/21/17 0000: Lactic Acid Cancelled 12/20/17 2344: Urinalysis LIGHT H, Urine Color YEL, Urine Clarity CLDY H, Urine pH 5.5, Ur Specific [place] 1.025, Urine Protein NEG, Urine Ketones NEG, Urine Nitrite POS H, Urine Bilirubin NEG, Urine Urobilinogen 0.2, Ur Leukocyte Esterase TRACE H, Ur Microscopic SEDIMENT EXAMINED, Urine RBC 10-15 H, Urine WBC 15-25 H, Urine Bacteria MANY H, Urine Mucus FEW, Micro UA Comment , Urine Hemoglobin MOD H, Urine Glucose NEG 12/20/17 2331: CBC w Diff NO MAN DIFF REQ, RBC 3.78 L, MCV 86.5, MCH 28.1, MCHC 32.5 L, RDW 15.3 H, MPV 7.9, Gran % 68.6, Lymphocytes % 24.3, Monocytes % 4.3, Eosinophils % 2.4, Basophils % 0.4, Absolute Granulocytes 8.1 H, Absolute Lymphocytes 2.9, Absolute Monocytes 0.5, Absolute Eosinophils 0.3, Absolute Basophils 0 12/20/172154: Anion Gap 8, Estimated GFR > 60, BUN/Creatinine Ratio 16.4, Glucose 120 H, Lactic Acid 2.2 H, Calcium 8.8, Total Bilirubin 0.6, AST 35, ALT 27, Alkaline Phosphatase 83, Troponin I 0.01, Total Protein 6.9, Albumin 3.4 L, Globulin 3.5 , Albumin/Globulin Ratio 1.0 L, CBC w Diff NO MAN DIFF REQ, RBC 4.07 L, MCV 85.8, MCH 28.3, MCHC 33.0, RDW 15.3 H, MPV 7.4, Gran % 47.4, Lymphocytes % 38.7 , Monocytes % 8.9, Eosinophils % 4.5, Basophils % 0.5, Absolute Granulocytes 6.1 , Absolute Lymphocytes 5.0 H, Absolute Monocytes 1.1 H, Absolute Eosinophils 0.6, Absolute Basophils 0.1 12/20/172149: PT 19.3 H, INR 1.76 H, APTT 33 Microbiology 12/21 429 UPPER RESP: Surveillance Culture - COMP 12/21 429 GI: Surveillance Culture - COMP Assessment/Plan Assessment/Plan 82-year-old gentleman with a past medical history of coronary artery disease ( status post interventions as well as bypass in 1983), AICD implantation, atrial fibrillation and ischemic cardiomyopathy (LVEF improved, currently at 50-55%), chronic congestive heart failure with preserved LV systolic function, and, hyperlipidemia, moderate mitral regurgitation, pulmonary fibrosis and an abdominal aortic aneurysm repair. He presented with rupture of an infrarenal abdominal aortic aneurysm is now status post repair of the same (endovascular). Abdominal aortic aneurysm/postoperative: The patient presented with an emergent need for surgical repair of an abdominal aortic aneurysm. He underwent the same without significant perioperative complications. We will continue to monitor. At this time, we will as well attempt to maintain an overall euvolemic state. Coronary artery disease: The patient has been stable from a coronary artery disease standpoint preoperatively. We will continue his outpatient medication regimen as tolerated from a blood pressure standpoint. The patient's home antihypertensive regimen may be reinitiated, and we will titrate as needed. AICD: The patient has an implanted AICD and has been without significant event by EP. We will continue to monitor as an outpatient. Continue telemetry? Yes
--- NOTE | 2017-12-22 13:57 | PN- Vascular Surgery ---
Surgical Brief Attending Note Brief Attending Note: VASCULAR ATTENDING NOTE: Pt. now POD #3 s/p EVAR for rAAA. Stable now extubated. PE: AF/VSS Ext: well perfused Abd: soft no pulsatile mass A/P D/C TLC D/C riggs OOB to chair Advance diet as tolerated PT eval. Transfer to floor
--- NOTE | 2017-12-22 14:36 | PN- CRCU ---
Subjective HPI/Critical Care Issues: Patient seen and examined this morning. He remains extubated looks well. He will be downgraded to telemetry later today. Objective Current Medications: Current Medications Sig/Sulaiman Start time Last Medication Dose Route Stop Time Status Admin Acetaminophen 1,000 MG Q6P PRN 12/21 0330 DC IV Albuterol Sulfate 3 ML BID 12/21 1000 AC INH Apixaban 2.5 MG BID 12/22 1000 AC 12/22 PO 1100 Aspirin 81 MG DAILY 12/22 1000 AC 12/22 PO 1100 Atorvastatin Calcium 20 MG 1700 12/21 1700 DC PO Dextrose/Sodium 1,000 ML CONTINOUS INFUSION 12/23 0330 AC 12/22 Chloride IV 0648 Dextrose/Sodium 1,000 ML Q10H 12/21 0730 DC 12/21 Chloride IV 2050 Ezetimibe 10 MG DAILY 12/22 1000 AC 12/22 PO 1100 Metoprolol Succinate 50 MG DAILY 12/21 2200 AC 12/22 PO 1155 Morphine Sulfate 2 MG Q2P PRN 12/22 0630 AC IV Morphine Sulfate 2 MG Q2P PRN 12/21 0730 DC 12/22 IV 0557 Nortriptyline HCl 150 MG AT BEDTIME 12/21 2200 AC 12/21 PO 2224 Ondansetron HCl 4 MG Q6 PRN 12/21 0330 AC IV Oxycodone/ 1 TAB Q4P PRN 12/22 0615 AC 12/22 Acetaminophen PO 1204 Oxycodone/ 2 TAB Q4P PRN 12/22 0615 AC Acetaminophen PO Pantoprazole Sodium 40 MG DAILY 12/21 0400 AC 12/22 IV 1100 Vital Signs & I&O Last 24 Hrs of Vitals and I&O: Vital Signs Date Time Temp Pulse Resp B/P B/P Pulse O2 O2 Flow FiO2 Mean Ox Delivery Rate 12/22 1155 82 133/70 12/22 0800 96 Nasal 2.0L Cannula 12/22 0800 97.8 75 22 130/66 98 Nasal 2.0L Cannula 12/22 0400 97 Nasal 2.0L Cannula 12/22 0000 98.3 78 24 124/66 98 Nasal 2.0L Cannula 12/22 0000 94 Nasal 2.0L Cannula 12/21 2224 94 158/86 12/21 2000 98 Nasal 2.0L Cannula 12/21 1600 96 Aerosol 30% Mask 12/21 1600 99.2 82 27 118/62 96 Aerosol 30% Mask 12/21 1449 96 Aerosol 30% Mask Intake & Output 12/22 1600 12/22 0800 12/22 0000 Intake Total 955 904 Output Total 575 700 Balance 380 204 Intake, IV 835 784 Intake, Oral 120 120 Output, Urine 575 700 Exam Other Physical Findings: Generally - Awake, alert and comfortable without distress Head and neck - normocephalic, atraumatic, EOMI grossly intact Cardiovascular - S1, S2 Lungs -rhonchi with bibasilar crackles Abdomen - Bowel sounds positive, soft, non-tender Extremities - without edema Results Last 24 Hrs of Lab Results: Laboratory Tests 12/22/17 0430: Anion Gap 4 L, Estimated GFR > 60, Glucose 98, Calcium 7.7 L, Phosphorus 2.8, Magnesium 1.9, Total Bilirubin 0.6, AST 19, ALT 19 L, Albumin 2.4 L, CBC w Diff NO MAN DIFF REQ, RBC 3.52 L, MCV 85.6, MCH 28.6, MCHC 33.4, RDW 15.9 H, MPV 7.5, Gran % 50.1, Lymphocytes % 30.8, Monocytes % 14.0 H, Eosinophils % 4.8 , Basophils % 0.3, Absolute Granulocytes 4.1, Absolute Lymphocytes 2.5, Absolute Monocytes 1.1 H, Absolute Eosinophils 0.4, Absolute Basophils 0 Impression/Plan Impression/Plan Impression/Plan: Impression 82 year old man * endoleak AAA repair * hypoxemic respiratory failure, hx of IPF * resolved hypotension Plan -f/u surgery and cardiology -transfer to tele -call with any questions -f/u with Dr. Brooks for pulmonary needs -DVT prophylaxi sat all times TTS 35 min
[2017-12-22 16:00] VITALS: BP 110/58
[2017-12-22 22:00] VITALS: BP 138/62
[2017-12-23 07:18] VITALS: BP 122/62
[2017-12-23 08:14] LABS: ABSOLUTE BASOPHIL COUNT 0 /CUMM (0.0-0.2); ABSOLUTE EOSINOPHIL COUNT 0.5 /CUMM (0.0-0.7); ABSOLUTE LYMPH COUNT 2.9 /CUMM (1.2-3.4); ABSOLUTE MONOCYTE COUNT 1.2 /CUMM (0.10-0.60); BASOPHIL % 0.6 % (0.0-2.0); EOSINOPHIL % 5.7 % (0-5); GRANULOCYTE % 46.7 % (42.2-75.2); HEMATOCRIT 30.2 % (42-52); MEAN CORPUSCULAR HGB 28.6 PG (27.0-31.0); MEAN CORPUSCULAR HGB CONC 33.2 G/DL (33.0-37.0); MEAN CORPUSCULAR VOLUME 86.2 FL (80.0-94.0); MEAN PLATELET VOLUME 7.7 FL (7.4-10.4); PLATELET COUNT 105 /CUMM (130-400); RBC DISTRIBUTION WIDTH 15.3 % (11.5-14.5); WHITE BLOOD CELL COUNT 8.6 /CUMM (4.8-10.8)
--- NOTE | 2017-12-23 08:19 | PN- Vascular Surgery ---
See Addendum Subjective Subjective: pt sitting in bed eating breakfast, no nausea. Pain well controlled with po pain meds. still on O2. voiding, no BM. syas urine is cloudy but not bloody, no dysurea. Denies CP. Has not been walking Objective Vital Signs and I&Os Vital Signs Date Time Temp Pulse Resp B/P B/P Pulse O2 O2 Flow FiO2 Mean Ox Delivery Rate 12/23 717 97.4 76 18 122/62 94 Nasal 2.0L Cannula 12/22 2246 Nasal 2.0L Cannula 12/22 2200 97.9 85 16 138/62 93 Nasal 2.0L Cannula 12/22 2036 Nasal 2.0L Cannula 12/22 1600 98.5 76 20 110/58 93 Nasal 2.0L Cannula 12/22 1600 96 Nasal 2.0L Cannula 12/22 1155 82 133/70 Intake & Output 12/23 1600 12/23 0800 / 0000 12/22 1600 12/22 0800 12/22 0000 Intake Total 247 77 3497 955 904 Output Total 550 250 200 575 700 Balance -200 -190 963 380 204 Intake, IV 563 835 784 Intake, Oral 350 60 600 120 120 Output, Urine 550 250 200 575 700 Patient 223 lb Weight Weight Bed scale Measurement Method Physical Exam: gen-NAD, on O2 resp- crackles bilaterally, faint end expiratory wheezes at bilat bases cardio-RRR abd- ND, soft, NT groin dressings clean and dry, no ecchymosis ext- mild edema in left leg, pt said thats normal as a vein was removed in that leg for his bypass Assessment/Plan Assessment/Plan 82yo M SP EVAR POD2. stable PO pain meds will order Physical therapy today Appreciate Pulm input Cont to trend H&H keep SBP below 140 Cont Abx for UTI dvt ppx- eliquis and alps will order colace for bowel home meds will need FU on DC with Dr Al in 1 week Core Measures Venous Thromboembolism VTE Risk Factors Acute Medical Illness No Mechanical VTE Prophylaxis d/t N/A MechProphylax Ordered No VTE Pharm Prophylaxis d/t Surgical Contraindication
--- NOTE | 2017-12-23 09:24 | PN- Vascular Surgery ---
Surgical Brief Attending Note Brief Attending Note: Stable. No complains. S/P endovascular repair for a rupture Type IA endoleak Vitals noted Abdomen soft Groins clean A/P The patient may be discharge to home once cleared by pulmnolgy and cardiology Incetive spirometer DQID encourage ambulation Resume AC as per cardilogy Follow in the office in one week.
--- NOTE | 2017-12-23 11:06 | PN- Att Addend ---
Attending Addendum Attending Brief Note Mr. Webb was interviewed and examined. His EMR was reviewed. He notes some abdominal discomfort which is exacerbated with coughing. He also notes constipation. He denies chest pain, SOB, palpitations, and lightheadedness. He did state he was able to ambulate to the bathroom and back earlier today. He is tolerating by mouth. He is afebrile. Heart and respiratory rates are satisfactory. Blood pressure is less than 140 systolic as preferred by vascular surgery. Oxygen saturation is satisfactory on 2 L by nasal cannula. He is alert and in no acute distress. Pulmonary exam shows diffuse end inspiratory rales and a few musical expiratory wheezes. Exam reveals a regular rate and rhythm. His abdomen has active bowel sounds and is soft and nontender. CBC is essentially unchanged from yesterday. His BMP and renal function are essentially normal. He is mildly hypocalcemic and hypoalbuminemic. Urine is growing gram-negative rods. Mr. Webb is status post ruptured AAA with associated hypovolemic shock. He has recovered well and has been restarted on his maintenance medications. I agree that we should begin physical therapy and was order a bowel prep if the stool softeners and effective. We will continue to monitor his blood pressure and will restart his antihypertensive should his systolic blood pressure start to rise. We will continue supplemental oxygen for his pulmonary disease. I agree with the initiation of antibiotic therapy for his presumed UTI.
--- NOTE | 2017-12-23 12:21 | PN- Cardiology ---
Subjective Subjective: The patient is awake, alert The events of the last 24 hours as well as telemetry were reviewed. Review of Systems: The review of systems is negative for chest pains, palpitations nor lightheadedness. The remainder of the 14 point review of systems is noncontributory with the exception of above. Objective Vital Signs and I&Os Vital Signs Date Time Temp Pulse Resp B/P B/P Pulse O2 O2 Flow FiO2 Mean Ox Delivery Rate 12/24 0730 130/74 12/23 08 97 Nasal 2.0L Cannula 12/23 0718 97.4 76 18 122/62 94 Nasal 2.0L Cannula 12/22 2246 Nasal 2.0L Cannula 12/220 97.9 85 16 138/62 93 Nasal 2.0L Cannula 12/22 2036 Nasal 2.0L Cannula 12/22 1600 98.5 76 20 110/58 93 Nasal 2.0L Cannula 12/22 1600 96 Nasal 2.0L Cannula Intake & Output 12/23 1600 12/23 0812/23 0000 12/22 1600 12/22 0000 Intake Total 890 40 5879 955 904 Output Total 550 250 200 575 700 Balance -200 -190 963 380 204 Intake, IV 563 835 784 Intake, Oral 350 60 600 120 120 Output, Urine 550 250 200 575 700 Patient 223 lb Weight Weight Bed scale Measurement Method Physical Exam: General: Nontoxic, no apparent distress. HEENT: Sclera and conjunctiva within normal limits, without xanthelasmas. Neck: Carotids 2+ without bruits. Respiratory: Clear to auscultation, air movement is good, without accessory respiratory muscle use. Heart: Regular rate and rhythm, without murmurs, without JVD. Abdomen: Soft, nontender, no masses, normoactive bowel sounds. Extremities: Without clubbing, cyanosis, without edema. Neuro: Nonfocal exam, strength, 5 out of 5 Skin: Within normal limits without lesions. Psych: Mood and affect: Normal Current Medications: Current Medications Sig/Sulaiman Start time Last Medication Dose Route Stop Time Status Admin Albuterol Sulfate 3 ML BID 12/21 1000 AC INH Apixaban 2.5 MG BID 12/22 1000 AC 12/23 PO 0830 Aspirin 81 MG DAILY 12/22 1000 AC 12/23 PO 0830 Ciprofloxacin 250 MG BID 12/22 2200 AC 12/23 PO 12/25 1001 0830 Dextrose/Sodium 1,000 ML CONTINOUS INFUSION 12/23 0330 DC 12/22 Chloride IV 0648 Docusate Sodium 100 MG BID 12/23 1000 AC 12/23 PO 0831 Ezetimibe 10 MG DAILY 12/22 1000 AC 12/23 PO 0830 Metoprolol Succinate 50 MG DAILY 12/21 2199 AC 12/23 PO 0830 Morphine Sulfate 2 MG Q2P PRN 12/22 0630 AC IV Nortriptyline HCl 150 MG AT BEDTIME 12/21 2199 AC 12/22 PO 2210 Ondansetron HCl 4 MG Q6 PRN 12/21 0330 AC IV Oxycodone/ 1 TAB Q4P PRN 12/22 0615 AC 12/22 Acetaminophen PO 1204 Oxycodone/ 2 TAB Q4P PRN 12/22 0615 AC Acetaminophen PO Pantoprazole Sodium 40 MG DAILY 12/21 0400 AC 12/23 IV 0831 Patient Medication 1 ED ONE ONE 12/23 1145 DC Teaching ED 12/23 1146 Polyethylene Glycol 17 GM DAILY 12/23 1123 AC PO Results Last 48 Hrs of Labs/Mics: Laboratory Tests 12/23/17 0620: CBC w Diff NO MAN DIFF REQ, RBC 3.50 L, MCV 86.2, MCH 28.6, MCHC 33.2, RDW 15.3 H, MPV 7.7, Gran % 46.7, Lymphocytes % 33.4, Monocytes % 13.6 H, Eosinophils % 5.7 H, Basophils % 0.6, Absolute Granulocytes 4.0, Absolute Lymphocytes 2.9, Absolute Monocytes 1.2 H, Absolute Eosinophils 0.5, Absolute Basophils 0 12/22/17 0430: Anion Gap 4 L, Estimated GFR > 60, Glucose 98, Calcium 7.7 L, Phosphorus 2.8, Magnesium 1.9, Total Bilirubin 0.6, AST 19, ALT 19 L, Albumin 2.4 L, CBC w Diff NO MAN DIFF REQ, RBC 3.52 L, MCV 85.6, MCH 28.6, MCHC 33.4, RDW 15.9 H, MPV 7.5, Gran % 50.1, Lymphocytes % 30.8, Monocytes % 14.0 H, Eosinophils % 4.8 , Basophils % 0.3, Absolute Granulocytes 4.1, Absolute Lymphocytes 2.5, Absolute Monocytes 1.1 H, Absolute Eosinophils 0.4, Absolute Basophils 0 12/21/17 1225: pH 7.36, pCO2 44, pO2 74 L, HCO3 24, ABG O2 Sat (Measured) 93.0 L, Carboxyhemoglobin 1.2 L, O2 Concentration % 30%, Respiration Rate 16, O2 Delivery Method VENT, Vent Mode AC, Expiratory Pressure 5, Tidal Volume 550, Phlebotomy Draw Site [place] Assessment/Plan Assessment/Plan 82-year-old gentleman with a past medical history of coronary artery disease ( status post interventions as well as bypass in 1983), AICD implantation, atrial fibrillation and ischemic cardiomyopathy (LVEF improved, currently at 50-55%), chronic congestive heart failure with preserved LV systolic function, and, hyperlipidemia, moderate mitral regurgitation, pulmonary fibrosis and an abdominal aortic aneurysm repair. He presented with rupture of an infrarenal abdominal aortic aneurysm is now status post repair of the same (endovascular). Abdominal aortic aneurysm/postoperative: The patient presented with an emergent need for surgical repair of an abdominal aortic aneurysm. He underwent the same without significant perioperative complications. We will continue to monitor. At this time, we will as well attempt to maintain an overall euvolemic state. Coronary artery disease: The patient has been stable from a coronary artery disease standpoint preoperatively. We will continue his outpatient medication regimen as tolerated from a blood pressure standpoint. The patient's home antihypertensive regimen may be reinitiated, and we will titrate as needed. AICD: The patient has an implanted AICD and has been without significant event by EP. We will continue to monitor as an outpatient The patient may be discharged when ready from a surgical standpoint. We will continue to follow as an outpatient. Continue telemetry? No
[2017-12-23 14:00] VITALS: BP 120/80
[2017-12-23 23:57] VITALS: BP 128/80
[2017-12-24 07:20] VITALS: BP 128/80
--- NOTE | 2017-12-24 07:35 | Patient Discharge Instructions ---
Discharge Instructions General Discharge Information You were seen/treated for: abdominal aortic aneurysm You had these procedures: Endovascular repair of abdominal aortic aneurysm Watch for these problems: increased abdominal pain or nausea, lightheadedness Do not soak the wound: Yes Other wound care: Keep incisions clean and dry. May shower but no bathing or soaking for at least 4 weeks. Diet Continue normal diet: Yes Activity Activity Self Limited: Yes Pounds, do NOT lift more than: 10 Acute Coronary Syndrome Inclusion Criteria At DC or during hospital stay patient has or had the following: ACS DIAGNOSIS No Discharge Core Measures Meds if any: Prescribed or Continued at Discharge Meds if any: NOT Prescribed or Continued at Discharge Congestive Heart Failure Inclusion Criteria At DC or during hospital stay patient has or had the following: CHF DIAGNOSIS No Discharge Core Measures Meds if any: Prescribed or Continued at Discharge Meds if any: NOT Prescribed or Continued at Discharge Cerebrovascular accident Inclusion Criteria At DC or during hospital stay patient has or had the following: CVA/TIA Diagnosis No Discharge Core Measures Meds if any: Prescribed or Continued at Discharge Meds if any: NOT Prescribed or Continued at Discharge Venous thromboembolism Inclusion Criteria VTE Diagnosis No VTE Type NONE VTE Confirmed by (Test) NONE Discharge Core Measures - Per Current guidelines, there needs to be overlap - treatment for the first 5 days of Warfarin therapy. - If discharged on Warfarin prior to 5 days of - overlap therapy, the patient will need to be - assessed for post discharge needs including - *Post discharge parental anticoagulation - *Warfarin and/or parental anticoagulation education - *Follow up date to check INR post discharge At least 5 days overlap therapy as Inpatient No Meds if any: Prescribed or Continued at Discharge Note: Overlap Therapy is Warfarin and Anticoagulant Meds if any: NOT Prescribed or Continued at Discharge
--- NOTE | 2017-12-24 07:47 | PN- Vascular Surgery ---
See Addendum Subjective Subjective: Awake, alert No specific complaints He gets short of breath with ambulating but states that is his baseline with pulmonary firbrosis and home oxygen. He feels that he is at his baseline with breathing. He has not had a bm since surgery and feels constipated and uncomfortable from that. Surgical pain is well controlled with meds. Objective Vital Signs and I&Os Vital Signs Date Time Temp Pulse Resp B/P B/P Pulse O2 O2 Flow FiO2 Mean Ox Delivery Rate 12/25 719 97.6 84 20 128/80 95 Nasal Cannula 12/23 2357 98.3 81 16 128/80 94 Nasal 2.0L Cannula 12/23 2108 Nasal 2.0L Cannula 12/23 1400 97.8 81 20 120/80 92 Nasal 2.0L Cannula 12/23 0830 130/74 12/23 0800 97 Nasal 2.0L Cannula Intake & Output 12/24 0000 12/23 1600 12/23 0800 12/23 0000 12/22 1600 Intake Total 200 534 23 6203 Output Total 550 250 200 Balance 200 -200 -190 963 Intake, IV 563 Intake, Oral 200 350 60 600 Output, Urine 550 250 200 Patient 276 lb 223 lb Weight Weight Bed scale Measurement Method Physical Exam: General: alert and oriented times three Chest: rales bilaterally, no wheezine or rhonchi, RRR Abd: soft, good bs, nontender to palpation Ext: warm, no edema, no calf tenderness Wds: dressed, dry Current Medications: Current Medications Sig/Sulaiman Start time Last Medication Dose Route Stop Time Status Admin Albuterol Sulfate 3 ML BID 12/21 999 AC INH Apixaban 2.5 MG BID 12/22 999 AC 12/23 PO 212 Aspirin 81 MG DAILY 12/22 999 AC 12/23 PO 0830 Ciprofloxacin 250 MG BID 12/22 2199 DC 12/23 PO 12/25 1001 0830 Docusate Sodium 100 MG BID 12/23 999 AC 12/23 PO 212 Ezetimibe 10 MG DAILY 12/22 999 AC 12/23 PO 0830 Metoprolol Succinate 50 MG DAILY 12/21 2199 AC 12/23 PO 0830 Morphine Sulfate 2 MG Q2P PRN 12/22 629 AC IV Nortriptyline HCl 150 MG AT BEDTIME 12/21 2199 AC 12/23 PO 2128 Ondansetron HCl 4 MG Q6 PRN 12/21 0330 AC IV Oseltamivir Phosphate 75 MG BID 12/23 2200 CAN PO 12/28 1001 Oxycodone/ 1 TAB Q4P PRN 12/22 0615 AC 12/23 Acetaminophen PO 1416 Oxycodone/ 2 TAB Q4P PRN 12/22 0615 AC Acetaminophen PO Pantoprazole Sodium 40 MG DAILY 12/21 0400 AC 12/23 IV 0831 Patient Medication 1 ED ONE ONE 12/23 1145 DC Teaching ED 12/23 1146 Polyethylene Glycol 17 GM DAILY 12/23 1123 AC 12/23 PO 1416 Assessment/Plan Assessment/Plan 82yo male s/p emergent EVAR for infrarenal leaking AAA pod 3 Plan is to dc home with home services once cleared by consults Cardiology is okay with discharge - follow up as outpatient Vascular surgery okay with discharge Awaiting pulmonary input - pt feels that he is at baseline and is on home oxygen Continue PT bowel regimen Core Measures Venous Thromboembolism VTE Risk Factors Acute Medical Illness No Mechanical VTE Prophylaxis d/t N/A MechProphylax Ordered No VTE Pharm Prophylaxis d/t Surgical Contraindication
[2017-12-24] MEDS ORDERED: PERCOCET 5-3251 EACH PO (07:56)
--- NOTE | 2017-12-24 09:42 | PN- Cardiology ---
Subjective Subjective: Telemetry reviewed. Sinus rhythm throughout. No arrhythmias. Objective Vital Signs and I&Os Vital Signs Date Time Temp Pulse Resp B/P B/P Pulse O2 O2 Flow FiO2 Mean Ox Delivery Rate 12/25 719 97.6 84 20 128/80 95 Nasal Cannula 12/23 2357 98.3 81 16 128/80 94 Nasal 2.0L Cannula 12/23 2108 Nasal 2.0L Cannula 12/23 1400 97.8 81 20 120/80 92 Nasal 2.0L Cannula Intake & Output 12/24 0000 12/23 1600 12/23 0000 Intake Total 360 200 350 60 Output Total 650 550 250 Balance -290 200 -200 -190 Intake, Oral 360 200 350 60 Output, Urine 650 550 250 Patient 276 lb 223 lb Weight Weight Bed scale Measurement Method Physical Exam: On general exam patient comfortably sitting out of bed in a chair Head normocephalic atraumatic Eyes sclera anicteric conjunctiva showed no pallor extraocular muscles were normal Neck no jugular venous distention no thyroid masses no palpable nodes Chest lungs bilateral coarse crepitations related to severe fibrosis Heart regular rhythm 10/24 systolic murmur Abdomen soft no organomegaly bowel sounds normal Extremities no clubbing cyanosis or edema Neurological no gross motor or sensory deficits. Current Medications: Current Medications Sig/Sulaiman Start time Last Medication Dose Route Stop Time Status Admin Albuterol Sulfate 3 ML BID 12/21 1000 AC INH Apixaban 5 MG BID 12/24 1000 AC PO Apixaban 2.5 MG BID 12/22 1000 DC 12/23 PO 2128 Aspirin 81 MG DAILY 12/22 1000 AC 12/23 PO 0830 Bisacodyl 5 MG ONE ONE 12/24 08 DC PO 12/24 0801 Ciprofloxacin 250 MG BID 12/22 2200 DC 12/23 PO 12/25 1001 0830 Docusate Sodium 100 MG BID 12/23 1000 AC 12/23 PO 2128 Ezetimibe 10 MG DAILY 12/22 1000 AC 12/23 PO 0830 Metoprolol Succinate 50 MG DAILY 12/210 AC 12/23 PO 0830 Morphine Sulfate 2 MG Q2P PRN 12/22 0630 DC IV Nortriptyline HCl 150 MG AT BEDTIME 12/21 2199 AC 12/23 PO 2128 Ondansetron HCl 4 MG Q6 PRN 12/21 0330 AC IV Oseltamivir Phosphate 75 MG BID 12/23 2200 CAN PO 12/28 1001 Oxycodone/ 1 TAB Q4P PRN 12/22 0615 AC 12/23 Acetaminophen PO 1416 Oxycodone/ 2 TAB Q4P PRN 12/22 0615 AC Acetaminophen PO Pantoprazole Sodium 40 MG DAILY 12/21 0400 AC 12/23 IV 0831 Patient Medication 1 ED ONE ONE 12/23 1145 DC Teaching ED 12/23 1146 Polyethylene Glycol 17 GM DAILY 12/23 1123 AC 12/23 PO 1416 Results Last 48 Hrs of Labs/Mics: Laboratory Tests 12/23/17 0620: CBC w Diff NO MAN DIFF REQ, RBC 3.50 L, MCV 86.2, MCH 28.6, MCHC 33.2, RDW 15.3 H, MPV 7.7, Gran % 46.7, Lymphocytes % 33.4, Monocytes % 13.6 H, Eosinophils % 5.7 H, Basophils % 0.6, Absolute Granulocytes 4.0, Absolute Lymphocytes 2.9, Absolute Monocytes 1.2 H, Absolute Eosinophils 0.5, Absolute Basophils 0 Assessment/Plan Assessment/Plan 82-year-old gentleman with a past medical history of coronary artery disease ( status post interventions as well as bypass in 1983), AICD implantation, atrial fibrillation and ischemic cardiomyopathy (LVEF improved, currently at 50-55%), chronic congestive heart failure with preserved LV systolic function, and, hyperlipidemia, moderate mitral regurgitation, pulmonary fibrosis and an abdominal aortic aneurysm repair. He presented with rupture of an infrarenal abdominal aortic aneurysm is now status post repair of the same (endovascular). He has been stable from a cardiovascular standpoint. He just saw me from a cardiac perspective. There've been no cardiac issues in the hospital. There is no pressing need to see a semiconductor development technician follow-up unless new cardiac problems develop. Continue telemetry? No
[2017-12-24 15:08] VITALS: BP 120/70
== END 2017-12-24 17:20 | disposition home health service (06) | DRG 268 ==
LOC: ERH 21:33 → CRI 12-21 03:30 → 1NO 12-21 03:30 → ENPENDDIS 12-24 11:46 → ENTRNSPT 12-24 17:05 → EDTRNSPTSTS 12-24 17:13 → 1NO 12-24 17:20 → CMPTRNSPT 12-24 17:33
PROVIDERS: Physician Assistant Medical; Physician Assistant Surgical
PROC: 04V03DZ Restriction of Abdominal Aorta with Intraluminal Device, Percutaneous Approach (ICD-10-PCS; principal; 2017-12-21)
PROC: 5A1935Z Respiratory Ventilation, Less than 24 Consecutive Hours (ICD-10-PCS; 2017-12-21)
PROC: 0BH17EZ Insertion of Endotracheal Airway into Trachea, Via Natural or Artificial Opening (ICD-10-PCS; 2017-12-21)
DX: I71.3 Abdominal aortic aneurysm, ruptured (principal); J96.91 Respiratory failure, unspecified with hypoxia; I50.32 Chronic diastolic (congestive) heart failure; N39.0 Urinary tract infection, site not specified; J84.10 Pulmonary fibrosis, unspecified; I48.2 Chronic atrial fibrillation; I25.5 Ischemic cardiomyopathy; I25.10 Atherosclerotic heart disease of native coronary artery without angina pectoris; Z79.01 Long term (current) use of anticoagulants; Z95.1 Presence of aortocoronary bypass graft; Z95.5 Presence of coronary angioplasty implant and graft; Z95.810 Presence of automatic (implantable) cardiac defibrillator; E78.5 Hyperlipidemia, unspecified
CPT/HCPCS: 1NP; CCU; 36592; 71045; 71046; 74177; 81001; 82436; 86920; 87070; 87086; 93005; 93010; 96361; 96374; 96375; 97116-GO; 97161-GP; 97530-GO; 99291; C1725; C1760; J0690; J1644; J2060; J2250; J3010; J3490; J7042; J7120; P9016; Q9967

== ENCOUNTER 2017-12-30 09:39 | Emergency (ER) | payer OTHER, MEDICARE ==
[~2017-12-30] VITALS: Ht 180.3 cm; Wt 95.3 kg
[~2017-12-30 09:39] MED LIST changes: +PERCOCET 5-3251 EACH PO
--- NOTE | 2017-12-30 10:26 | ED CARDIAC/CP/PALPITATIONS ---
History of Present Illness General Chief Complaint: Chest Pain Stated Complaint: CP Source: patient, old records Exam Limitations: no limitations Allergies Coded Allergies: NO KNOWN ALLERGIES (10/30/11) Reconcile Medications Albuterol Sulfate (Proair Hfa) 90 MCG HFA.AER.AD 2 PUF INH 4XDAILY RESP. ( Reported) Apixaban (Eliquis) 5 MG TABLET 1 TAB PO BID BLOOD THINNER (Reported) Aspirin (Ecotrin*) 81 MG TABLET.DR 1 TAB PO QPM HEART/BLOOD (Reported) Atorvastatin Calcium 20 MG TABLET 1 TAB PO DAILY CHOLESTEROL (Reported) Candesartan Cilexetil 4 MG TABLET 1 TAB PO DAILY BP (Reported) Ezetimibe (Zetia) 10 MG TABLET 1 TAB PO DAILY CHOLESTEROL (Reported) Magnesium Oxide (Magnesium) (Unknown Strength) CAPSULE (Unknown Dose) PO DAILY SUPPLEMENT (Reported) Metoprolol Succinate 50 MG TAB.ER.24H 1 TAB PO DAILY HEART/BP (Reported) Nortriptyline HCl 75 MG CAPSULE 175 MG PO QHS DEPRESSION (Reported) Triage Note: 82 YEAR OLD MALE STATES THAT HE HAD A TRIPLE A REPAIR A WEEK AGO AND THAT HE IS HAVING INCREASING PAIN TO JUSTO FLANK AND ACROSS HIS LOW BACK,PAIN MEDS ARE NOT HELPING. PT ALERT AND ORIENTED COLOR PALE. PT O2 DEPENDENT AT 2L BUT CAME INTO ER WITHOUT O2, O2 SAT 88 % ON RA, PLACED ON 2L VIA NC AND SATURATION INCREASED TO 94 %. BP 92/57 PT COMPLAINS OF FEELING LIGHT HEADED AND DIZZY, IV PLACED AND PT TO ROOM Triage Nurses Notes Reviewed? yes Onset: Gradual Duration: day(s): Timing: recent history Quality/Severity: moderate Location: lower abdomen bilaterally Radiation: back HPI: 82-year-old male with history of aortic aneurysm rupture repair on 12/21/[address] Al presents emergency department complaining of lower abdominal pain bilaterally radiating toward his back. Patient states he has had pain in this area since his surgery however today pain was more severe. Patient has been taking oxycodone as prescribed for his pain. Patient also reporting dizziness and presyncope, worse in the mornings since his surgery. Patient denies dyspnea , chest pain, syncope, numbness, vomiting, diarrhea. (Cadence MCDONNELL,Mary Black) Vital Signs & Intake/Output Vital Signs & Intake/Output Vital Signs Date Time Temp Pulse Resp B/P B/P Pulse O2 O2 Flow FiO2 Mean Ox Delivery Rate 12/30 1328 96.0 106 22 156/83 96 Nasal 2.0L Cannula 12/30 1141 55 20 156/83 98 Room Air 12/30 1100 118/66 12/30 1009 97.0 82 22 92/57 94 Nasal Cannula (Rolanda PARKS,Sergei Heart) Past History Travel History Traveled to [place] past 21 day No Medical History Any Pertinent Medical History? see below for history Neurological: NONE EENT: NONE Cardiovascular: aortic aneurysm, AFIB, hypertension, hyperlipidemia, CARDIAC BIPASS L SIDE PACER/DEFIB Respiratory: bronchitis, emphysema, PULMONARY FIBROSIS Gastrointestinal: constipation, HERNIA L GROIN Hepatic: NONE Renal: NONE Musculoskeletal: COMPRESSION FX Psychiatric: depression Endocrine: NONE Blood Disorders: NONE Cancer(s): NONE TYPESETTING MACHINE TENDER/Reproductive: NONE History of MRSA: No History of VRE: No History of CDIFF: No Influenza Vaccine: 09/02/17 Surgical History Surgical History: CABG, AAA, APPEDNECTOMY Psychosocial History Who do you live with Son What is your primary language South [place] Tobacco Use: Never used ETOH Use: denies use Illicit Drug Use: denies illicit drug use Family History Hx Contributory? No (Mary Hogan) Review of Systems Review of Systems Constitutional: Reports: no symptoms. EENTM: Reports: no symptoms. Respiratory: Reports: no symptoms. Cardiovascular: Reports: see HPI. GI: Reports: see HPI. Genitourinary: Reports: no symptoms. Musculoskeletal: Reports: no symptoms. Skin: Reports: no symptoms. Neurological/Psychological: Reports: see HPI. Hematologic/Endocrine: Reports: no symptoms. Immunologic/Allergic: Reports: no symptoms. All Other Systems: Reviewed and Negative (Mary Hogan) Physical Exam Physical Exam General Appearance: well developed/nourished, no apparent distress, alert, awake Head: atraumatic, normal appearance Eyes: Bilateral: normal appearance. Ears, Nose, Throat: hearing grossly normal Neck: normal inspection, supple, full range of motion Respiratory: normal breath sounds, no respiratory distress, lungs clear Cardiovascular: regular rate/rhythm Peripheral Pulses: 2+ radial (R), 2+ radial (L), 2+ dorsalis pedis (R), 2+ dorsalis pedis (L) Gastrointestinal: normal bowel sounds, soft, no organomegaly, BILATERAL LOWER ABDOMINAL TENDERNESS WITH GAURDING, NO FIRMNESS Back: normal inspection, normal range of motion Extremities: normal inspection, normal range of motion Neurologic/Psych: awake, alert, oriented x 3 Skin: intact, normal color, warm/dry Core Measures ACS in differential dx? Yes CVA/TIA Diagnosis No Sepsis Present: No Sepsis Focused Exam Completed? No (Cadence MCDONNELL,Mary Black) Progress Differential Diagnosis: AMI, aortic dissection, CHF/pulm edema, HEMATOMA Diagnostic Imaging: Viewed by Me: CT Scan. Discussed w/RAD: CT Scan. Radiology Impression: PATIENT: MAXIMINO MASON PRESENT AGE: 82 PATIENT ACCOUNT NO: [id number] : 36 LOCATION: [facility] ORDERING PHYSICIAN: Mary MCDONNELL SERVICE DATE: 12/30/17 EXAM TYPE: CAT - CT ABD & PELVIS ANGIOGRAM; CTA CHEST-AORTIC DISSECTION EXAMINATION: CT CHEST WITH IV CONTRAST CT ABDOMEN AND PELVIS WITH IV CONTRAST CLINICAL INFORMATION: 82-year-old male with history of abdominal aorta aneurysm and repair 8 days ago. Abdominal pain radiates to the back. COMPARISON: CT images of the chest, abdomen and pelvis from 12/20/2017. TECHNIQUE: Initially, noncontrast multidetector CT imaging evaluation of the chest, abdomen and pelvis was performed. Then, multidetector CT imaging examination of the chest, abdomen and pelvis was performed in the arterial phase during intravenous administration of 94 mL of Optiray 320. Axial images are displayed at 0.625 mm and 5 mm slice thickness. Coronal and sagittal reformatted images were generated at the technologist's workstation and submitted for review. Note that three-dimensional postprocessed angiography images were not generated. DLP: 2307 mGy-cm FINDINGS: CHEST - LUNGS and PLEURA: Linear strand of mucus along the posterior wall of the trachea and extending into the left mainstem bronchus. Chronic interstitial lung disease with architectural distortion and scattered regions of honeycombing in upper and lower lobes. Moderate centrilobular emphysema. Mild paraseptal emphysema of upper lobes, as well. There are calcified granulomas within the lower lobes. Compared to 12/20/2017, there are some new, nonspecific patchy groundglass opacities in the anterior right lung apex. Trace amount of fluid in the posterior pleural spaces, bilaterally. No pneumothorax. MEDIASTINUM: Cardiomegaly with right atrial and biventricular pacemaker/AICD in place. Severe atherosclerotic calcification of coronary arteries. No pericardial effusion. Atherosclerotic calcification of the thoracic aorta without acute intramural hematoma, aneurysm or dissection. At the level of the right pulmonary artery, the ascending aorta is 3.8 cm transverse, 3.9 cm AP diameter. Distal to the takeoff of the left subclavian artery, aortic arch is 2.8 cm transverse diameter. Proximal and distal descending aorta measure 3.1 cm and 2.8 cm in short axis diameter, respectively. The esophagus has normal wall thickness. Thyroid gland is atrophied. LYMPHATICS: No axillary lymphadenopathy. Stable appearance of mildly enlarged bilateral hilar and mediastinal lymph nodes. CHEST WALL/BONES: Old compression fractures of T3 and T7 vertebral bodies with approximately 60% loss of height of T7 and approximately 30% loss of height of T3. Vertebroplasty changes of the compressed T8, T12 and L1 vertebral bodies. ABDOMEN AND PELVIS - HEPATOBILIARY: Liver has normal size and attenuation. No hepatic mass or intrahepatic bile duct dilatation. Probable focal adenomyomatosis of the gallbladder fundus. Cholelithiasis. PANCREAS: Unremarkable. SPLEEN: Unremarkable. ADRENAL GLANDS: Unremarkable. KIDNEYS, URETERS, BLADDER: No nephrolithiasis or hydronephrosis. Simple cortical cysts of the upper and lower pole of the left kidney. Urinary bladder is unremarkable. GI TRACT AND PERITONEUM: Stomach is normal. Bowel loops are normal in caliber. No acute inflammation or obstruction along the gastrointestinal tract. No ascites or pneumoperitoneum. ABDOMINAL WALL: No acute findings. VASCULAR: Again noted is the aortobiiliac stent graft which begins just below the level of the renal arteries. On the noncontrast images, the [place] aneurysm sac has heterogeneous attenuation and measures up to 5.4 cm transverse and 5.5 cm AP, compared to a size of 4.7 x 4.7 cm on 12/20/2017. On the arterial phase images, an endoleak appears to originate from the portion of the graft supplying the right iliac system (images [id number], series 6). On the delayed postcontrast images, the amount of contrast leakage into the aneurysm sac appears increased compared to the arterial phase images. There is persistent or recurrent hemorrhage around the aneurysm sac. The hematoma extends around the aorta and inferior vena cava. The celiac trunk and its branches are widely patent. SMA is widely patent. The right and left renal arteries appear widely patent, as well. There is a small, accessory right renal artery. LYMPH NODES: No pathologic sized lymph nodes within the abdomen or pelvis. PELVIC VISCERA: Prostate gland has central calcification. OSSEOUS STRUCTURES: Multilevel discovertebral degenerative change of the lumbar spine. No aggressive osseous lesions. IMPRESSION: 1. Persistent endoleak within the abdominal aorta aneurysm sac. The aneurysm sac has increased in size compared to 12/20/2017, and there is persistent retroperitoneal hemorrhage around the aneurysm sac and the adjacent inferior vena cava. 2. No acute findings within the tortuous, atherosclerotic thoracic aorta. 3. Chronic interstitial pulmonary fibrosis and pulmonary emphysema. New, nonspecific patchy groundglass opacity in the anterior right lung apex. 4. Cardiomegaly and atherosclerotic disease of coronary arteries. 5. Cholelithiasis. The critical test result was discussed with Dr. Sofia Vila at 11:54 am on 12/30/2017 and it was ascertained that the content and the importance of the findings was understood at the time of the direct communication. DICTATED BY: Ish Reid MD DATE/TIME DICTATED:12/30/171126 EVENT PLANNING INTERN:IVIS DATE/TIME TRANSCRIBED:12/30/171126 CONFIDENTIAL, DO NOT COPY WITHOUT APPROPRIATE AUTHORIZATION. <Electronically signed in Other Vendor System> SIGNED BY: Ish Reid MD 12/30/17 1203 Initial ED EKG: A-V PACED RHYTHM RATE OF 86BPM, NONSPECIFIC CHANGES Prior EKG: unchanged (Cadence MCDONNELL,Mary Black) Plan of Care: Orders Procedure Date/time Status Add-on Test (ER Only) 12/30 1026 Active PARTIAL THROMBOPLASTIN TIME 12/30 1007 Complete PROTHROMBIN TIME 12/30 1007 Complete TYPE & SCREEN (NOT X-MATCH) 12/30 1007 Complete URINALYSIS 12/30 0957 Complete TROPONIN LEVEL 12/30 0957 Complete COMPREHENSIVE METABOLIC PANEL 12/30 0957 Complete CBC WITHOUT DIFFERENTIAL 12/30 0957 Complete EKG 12/30 0943 Active Laboratory Tests 12/30/17 1313: Urine Color YEL, Urine Clarity CLEAR, Urine pH 7.5, Ur Specific [place] 1.010, Urine Protein NEG, Urine Ketones NEG, Urine Nitrite NEG, Urine Bilirubin NEG, Urine Urobilinogen 2.0 H, Ur Leukocyte Esterase NEG, Ur Microscopic EXAM NOT REQUIRED, Urine Hemoglobin NEG, Urine Glucose NEG 12/30/17 1007: Anion Gap 6, Estimated GFR > 60, BUN/Creatinine Ratio 15.0, Glucose 124 H, Calcium 9.1, Total Bilirubin 1.4 H, AST 27, ALT 19 L, Alkaline Phosphatase 86, Troponin I < 0.01, Total Protein 6.7, Albumin 3.2 L, Globulin 3.5, Albumin/ Globulin Ratio 0.9 L, PT 20.4 H, INR 1.86 H, APTT 35, CBC w Diff NO MAN DIFF REQ, RBC 3.74 L, MCV 85.0, MCH 28.6, MCHC 33.7, RDW 15.4 H, MPV 7.0 L, Gran % 65.2, Lymphocytes % 22.0, Monocytes % 9.9 H, Eosinophils % 2.3, Basophils % 0.6 , Absolute Granulocytes 4.9, Absolute Lymphocytes 1.7, Absolute Monocytes 0.7 H , Absolute Eosinophils 0.2, Absolute Basophils 0 10:35 AM - Spoke with flight operation coordinator vascular surgeon regarding this patient. They recommend HU CTA pending renal function. I called the lab to expedite the patient's blood work. SPOKE with radiology regarding this patient persisent endoleak in AAA sack, aneurysm is larger than it was on previous CT, hemorrhage is persistent around aneurysm. Suggests continued blood leaked. 12:10 - Vascular surgeon, Dr. Herrera, present at bedside. Type 2 endoleak. Cannot fix this at [facility] because special imaging is necessary. Dr. Orantes spoke with vascular surgeon at [facility] regarding this patient's transfer to [facility] for further vascular evaluation and surgery. Patient's blood pressure is stable, hemoglobin/hematocrit is stable. (Cadence MCDONNELL,Mary Black) Comments: 12/30/2017 12:00:45 PM I have just reevaluated Maximino. He states the pain medicine is wearing off but otherwise has no specific complaints. Although he does appear pale he is alert conversant and cooperative. His blood pressure is slightly elevated. ASAF MCDONNELL has just discussed his case and the CAT scan findings of ongoing bleeding with the vascular surgeon, Dr. Ulloa, who states that one of his colleagues will be in the emergency department within minutes to take care of this patient. 12/30/2017 12:21:22 PM patient has been evaluated in the emergency department by Dr. MENENDEZ who feels the patient should be transferred to [facility]. The reasoning behind this is that the patient probably has an endovascular leak but unfortunately he would require imaging studies aren't available at [facility]. Dr. MENENDEZ will contact the vascular surgeon at [facility] and call back to confirm transfer. 12/30/2017 1:03:[address] Menendez has discussed this patient's case with Dr. Willett at [facility]. I do spoken with the [facility] transfer line and they will contact Dr. Willett and call back with acceptance. (Rolanda PARKS,Sergei Heart) Departure Departure Disposition: OTHER [facility] (ACUTE) Condition: Stable Clinical Impression Primary Impression: Endoleak of aortic graft Secondary Impressions: AAA (abdominal aortic aneurysm) Abdominal pain Qualifiers: Abdominal location: lower abdomen, unspecified Qualified Code: R10.30 - Lower abdominal pain, unspecified Referrals: Adeline PARKS,Keyon Dunlap (PCP/Family) Departure Forms: Customer Survey General Discharge Information (Cadence MCDONNELL,Mary Black) PA/DROP CREW LABORER Co-Sign Statement Statement: ED Attending supervision documentation- [X] I saw and evaluated the patient. I have also reviewed all the pertinent lab results and diagnostic results. I agree with the findings and the plan of care as documented in the PA's/DROP CREW LABORER's documentation. [] I have reviewed the ED Record and agree with the PA's/DROP CREW LABORER's documentation. [] Additions or exceptions (if any) to the PAs/DROP CREW LABORER's note and plan are summarized below: [] (Rolanda PARKS,Sergei Heart) Critical Care Note Critical Care Note Critical Care Time: 30-74 min (Cadence MCDONNELL,Mary Black)
[2017-12-30 10:33] LABS: ABSOLUTE BASOPHIL COUNT 0 /CUMM (0.0-0.2); ABSOLUTE EOSINOPHIL COUNT 0.2 /CUMM (0.0-0.7); ABSOLUTE GRANULOCYTE CT 4.9 /CUMM (1.4-6.5); ABSOLUTE LYMPH COUNT 1.7 /CUMM (1.2-3.4); ABSOLUTE MONOCYTE COUNT 0.7 /CUMM (0.10-0.60); BASOPHIL % 0.6 % (0.0-2.0); EOSINOPHIL % 2.3 % (0-5); GRANULOCYTE % 65.2 % (42.2-75.2); HEMATOCRIT 31.8 % (42-52); MEAN CORPUSCULAR HGB 28.6 PG (27.0-31.0); MEAN CORPUSCULAR HGB CONC 33.7 G/DL (33.0-37.0); PLATELET COUNT 227 /CUMM (130-400); RBC DISTRIBUTION WIDTH 15.4 % (11.5-14.5); RED BLOOD CELL CT 3.74 /CUMM (4.70-6.10); WHITE BLOOD CELL COUNT 7.6 /CUMM (4.8-10.8)
[2017-12-30 10:45] LABS: PT 20.4 SEC (9.4-12.5); PTT 35 SEC (25-37)
--- NOTE | 2017-12-30 12:03 | CT SCAN REPORT ---
EXAMINATION: CT CHEST WITH IV CONTRAST CT ABDOMEN AND PELVIS WITH IV CONTRAST CLINICAL INFORMATION: 82-year-old male with history of abdominal aorta aneurysm and repair 8 days ago. Abdominal pain radiates to the back. COMPARISON: CT images of the chest, abdomen and pelvis from 12/20/2017. TECHNIQUE: Initially, noncontrast multidetector CT imaging evaluation of the chest, abdomen and pelvis was performed. Then, multidetector CT imaging examination of the chest, abdomen and pelvis was performed in the arterial phase during intravenous administration of 94 mL of Optiray 320. Axial images are displayed at 0.625 mm and 5 mm slice thickness. Coronal and sagittal reformatted images were generated at the technologist's workstation and submitted for review. Note that three-dimensional postprocessed angiography images were not generated. DLP: 2307 mGy-cm FINDINGS: CHEST - LUNGS and PLEURA: Linear strand of mucus along the posterior wall of the trachea and extending into the left mainstem bronchus. Chronic interstitial lung disease with architectural distortion and scattered regions of honeycombing in upper and lower lobes. Moderate centrilobular emphysema. Mild paraseptal emphysema of upper lobes, as well. There are calcified granulomas within the lower lobes. Compared to 12/20/2017, there are some new, nonspecific patchy groundglass opacities in the anterior right lung apex. Trace amount of fluid in the posterior pleural spaces, bilaterally. No pneumothorax. MEDIASTINUM: Cardiomegaly with right atrial and biventricular pacemaker/AICD in place. Severe atherosclerotic calcification of coronary arteries. No pericardial effusion. Atherosclerotic calcification of the thoracic aorta without acute intramural hematoma, aneurysm or dissection. At the level of the right pulmonary artery, the ascending aorta is 3.8 cm transverse, 3.9 cm AP diameter. Distal to the takeoff of the left subclavian artery, aortic arch is 2.8 cm transverse diameter. Proximal and distal descending aorta measure 3.1 cm and 2.8 cm in short axis diameter, respectively. The esophagus has normal wall thickness. Thyroid gland is atrophied. LYMPHATICS: No axillary lymphadenopathy. Stable appearance of mildly enlarged bilateral hilar and mediastinal lymph nodes. CHEST WALL/BONES: Old compression fractures of T3 and T7 vertebral bodies with approximately 60% loss of height of T7 and approximately 30% loss of height of T3. Vertebroplasty changes of the compressed T8, T12 and L1 vertebral bodies. ABDOMEN AND PELVIS - HEPATOBILIARY: Liver has normal size and attenuation. No hepatic mass or intrahepatic bile duct dilatation. Probable focal adenomyomatosis of the gallbladder fundus. Cholelithiasis. PANCREAS: Unremarkable. SPLEEN: Unremarkable. ADRENAL GLANDS: Unremarkable. KIDNEYS, URETERS, BLADDER: No nephrolithiasis or hydronephrosis. Simple cortical cysts of the upper and lower pole of the left kidney. Urinary bladder is unremarkable. GI TRACT AND PERITONEUM: Stomach is normal. Bowel loops are normal in caliber. No acute inflammation or obstruction along the gastrointestinal tract. No ascites or pneumoperitoneum. ABDOMINAL WALL: No acute findings. VASCULAR: Again noted is the aortobiiliac stent graft which begins just below the level of the renal arteries. On the noncontrast images, the [place] aneurysm sac has heterogeneous attenuation and measures up to 5.4 cm transverse and 5.5 cm AP, compared to a size of 4.7 x 4.7 cm on 12/20/2017. On the arterial phase images, an endoleak appears to originate from the portion of the graft supplying the right iliac system (images [id number], series 6). On the delayed postcontrast images, the amount of contrast leakage into the aneurysm sac appears increased compared to the arterial phase images. There is persistent or recurrent hemorrhage around the aneurysm sac. The hematoma extends around the aorta and inferior vena cava. The celiac trunk and its branches are widely patent. SMA is widely patent. The right and left renal arteries appear widely patent, as well. There is a small, accessory right renal artery. LYMPH NODES: No pathologic sized lymph nodes within the abdomen or pelvis. PELVIC VISCERA: Prostate gland has central calcification. OSSEOUS STRUCTURES: Multilevel discovertebral degenerative change of the lumbar spine. No aggressive osseous lesions. IMPRESSION: 1. Persistent endoleak within the abdominal aorta aneurysm sac. The aneurysm sac has increased in size compared to 12/20/2017, and there is persistent retroperitoneal hemorrhage around the aneurysm sac and the adjacent inferior vena cava. 2. No acute findings within the tortuous, atherosclerotic thoracic aorta. 3. Chronic interstitial pulmonary fibrosis and pulmonary emphysema. New, nonspecific patchy groundglass opacity in the anterior right lung apex. 4. Cardiomegaly and atherosclerotic disease of coronary arteries. 5. Cholelithiasis. The critical test result was discussed with Dr. Sofia Vila at 11:54 am on 12/30/2017 and it was ascertained that the content and the importance of the findings was understood at the time of the direct communication.
--- NOTE | 2017-12-30 13:23 | Cons- Vascular Surgery ---
General Information and HPI Consulting Request Date of Consult: 12/30/17 Requested By: ER Reason for Consult: History of recent ruptured AAA with a possible endoleak noted on CAT scan Source of Information: patient, old records Exam Limitations: no limitations History of Present Illness: This is an 82-year-old male with a recent repair of his infrarenal abdominal aortic aneurysm by Dr. Al last week. He presented last week ruptured after being lost to follow-up from a aneurysm repair in 2005. At that time he underwent a proximal neck extension and an iliac limb extension on the left. He has had back pain since the repair. He states that over the past several days this has worsened. He presented to the emergency room today and a CAT demonstrates a small amount of contrast in the aneurysm sac. His hemoglobin and hematocrit are stable and his pain is not worsening. Allergies/Medications Allergies: Coded Allergies: NO KNOWN ALLERGIES (10/30/11) Home Med List: Albuterol Sulfate (Proair Hfa) 90 MCG HFA.AER.AD 2 PUF INH 4XDAILY RESP. ( Reported) Apixaban (Eliquis) 5 MG TABLET 1 TAB PO BID BLOOD THINNER (Reported) Aspirin (Ecotrin*) 81 MG TABLET.DR 1 TAB PO QPM HEART/BLOOD (Reported) Atorvastatin Calcium 20 MG TABLET 1 TAB PO DAILY CHOLESTEROL (Reported) Candesartan Cilexetil 4 MG TABLET 1 TAB PO DAILY BP (Reported) Ezetimibe (Zetia) 10 MG TABLET 1 TAB PO DAILY CHOLESTEROL (Reported) Magnesium Oxide (Magnesium) (Unknown Strength) CAPSULE (Unknown Dose) PO DAILY SUPPLEMENT (Reported) Metoprolol Succinate 50 MG TAB.ER.24H 1 TAB PO DAILY HEART/BP (Reported) Nortriptyline HCl 75 MG CAPSULE 175 MG PO QHS DEPRESSION (Reported) Current Medications: Current Medications Sig/Sulaiman Start time Last Medication Dose Route Stop Time Status Admin Sodium Chloride 1,000 ML BOLUS ONE 12/30 1015 DC 12/30 IV 12/30 1114 1025 Past History Medical History Neurological: NONE EENT: NONE Cardiovascular: aortic aneurysm, AFIB, hypertension, hyperlipidemia, CARDIAC BIPASS L SIDE PACER/DEFIB Respiratory: bronchitis, emphysema, PULMONARY FIBROSIS Gastrointestinal: constipation, HERNIA L GROIN Hepatic: NONE Renal: NONE Musculoskeletal: COMPRESSION FX Psychiatric: depression Endocrine: NONE Blood Disorders: NONE Cancer(s): NONE CHILD WELFARE ASSISTANT/Reproductive: NONE Surgical History Pertinent Surgical History: CABG, AAA, APPEDNECTOMY Psychosocial History ETOH Use: denies use Illicit Drug Use: denies illicit drug use Functional Ability ADLs Independent: dressing, eating, toileting, bathing. Ambulation: independent IADLs Independent: housework. Review of Systems Review of Systems: Some mild left groin and lower back pain Review of Systems Constitutional: Reports: no symptoms. Exam & Diagnostic Data Vital Signs and I&O Vital Signs Date Time Temp Pulse Resp B/P B/P Pulse O2 O2 Flow FiO2 Mean Ox Delivery Rate 12/30 1141 55 20 156/83 98 Room Air 12/30 1100 118/66 12/30 1009 97.0 82 22 92/57 94 Nasal Cannula Intake & Output 12/30 1600 12/30 0800 12/30 0000 12/29 1600 12/29 0800 12/29 0000 Intake Total 1000 Output Total Balance 1000 Intake, IV 1000 Patient 210 lb Weight Physical Exam: Physical exam reveals bilateral lower extremities are well-perfused. His groins are clean dry and intact. There is no evidence of significant ecchymosis or poor perfusion. Last 24 Hours of Labs: Laboratory Tests 12/30 12/30 1313 1007 Chemistry Sodium (137 - 145 mmol/L) 137 Potassium (3.5 - 5.1 mmol/L) 4.5 Chloride (98 - 107 mmol/L) 100 Carbon Dioxide (22 - 30 mmol/L) 31 H Anion Gap (5 - 16) 6 BUN (9 - 20 mg/dL) 15 Creatinine (0.7 - 1.2 mg/dL) 1.0 Estimated GFR (>60 ml/min) > 60 BUN/Creatinine Ratio (7 - 25 %) 15.0 Glucose (65 - 99 mg/dL) 124 H Calcium (8.4 - 10.2 mg/dL) 9.1 Total Bilirubin (0.2 - 1.3 mg/dL) 1.4 H AST (17 - 59 U/L) 27 ALT (21 - 72 U/L) 19 L Alkaline Phosphatase (< 127 U/L) 86 Troponin I (<0.11 ng/ml) < 0.01 Total Protein (6.3 - 8.2 g/dL) 6.7 Albumin (3.5 - 5.0 g/dL) 3.2 L Globulin (1.9 - 4.2 gm/dL) 3.5 Albumin/Globulin Ratio (1.1 - 2.2 %) 0.9 L Coagulation PT (9.4 - 12.5 SEC) 20.4 H INR (0.90 - 1.17) 1.86 H APTT (25 - 37 SEC) 35 Hematology CBC w Diff NO MAN DIFF REQ WBC (4.8 - 10.8 /CUMM) 7.6 RBC (4.70 - 6.10 /CUMM) 3.74 L Hgb (14.0 - 18.0 G/DL) 10.7 L Hct (42 - 52 %) 31.8 L MCV (80.0 - 94.0 FL) 85.0 MCH (27.0 - 31.0 PG) 28.6 MCHC (33.0 - 37.0 G/DL) 33.7 RDW (11.5 - 14.5 %) 15.4 H Plt Count (130 - 400 /CUMM) 227 MPV (7.4 - 10.4 FL) 7.0 L Gran % (42.2 - 75.2 %) 65.2 Lymphocytes % (20.5 - 51.1 %) 22.0 Monocytes % (1.7 - 9.3 %) 9.9 H Eosinophils % (0 - 5 %) 2.3 Basophils % (0.0 - 2.0 %) 0.6 Absolute Granulocytes (1.4 - 6.5 /CUMM) 4.9 Absolute Lymphocytes (1.2 - 3.4 /CUMM) 1.7 Absolute Monocytes (0.10 - 0.60 /CUMM) 0.7 H Absolute Eosinophils (0.0 - 0.7 /CUMM) 0.2 Absolute Basophils (0.0 - 0.2 /CUMM) 0 Urines Urine Color Pending Urine Clarity Pending Urine pH Pending Ur Specific [place] Pending Urine Protein Pending Urine Ketones Pending Urine Nitrite Pending Urine Bilirubin Pending Urine Urobilinogen Pending Ur Leukocyte Esterase Pending Ur Microscopic Pending Urine Hemoglobin Pending Urine Glucose Pending Imaging Results: CAT scan demonstrates a small amount of contrast in the aneurysmal sac. This is consistent with either a type II or small type III endoleak. It is difficult to discern on this imaging study. The previous type I endoleak has been repaired. Assessment/Plan Assessment/Plan 82-year-old male with a history of recent AAA repair with a proximal cuff extension and limb extension. He returns with back pain and new CAT scan findings of a type II or type III endoleak. 1.) Patient will likely require aortography to determine source of leak. 2.) If this was a type II endoleak without the recent rupture it probably would be observed-however due to the recent circumstances it likely will need to be treated and therefore patient should be transferred to a site where hybrid OR imaging is available. This also may require interventional radiologic services. A type III endoleak could be treated here but the source of the leak is uncertain--therefore transfer will be diagnostic/therapeutic and safer for the patient 3.) The patient is stable for transfer and the vascular fellow at [facility] who will discus/transfer the case to Dr. Sharan Willett. 4.) Continue supportive care during transfer Consult Acknowledgment - Thank you for your consult request. Attending MD Review Statement Attending Statement Attending MD Statement: examined this patient, discuss w/resident/PA/EARLY HEAD START DIRECTOR, reviewed images
[2017-12-30 13:28] VITALS: BP 156/83
== END 2017-12-30 13:47 | disposition short-term general hospital (02) ==
LOC: ERH 09:39
PROVIDERS: Emergency Medicine
DX: T82.330A Leakage of aortic (bifurcation) graft (replacement), initial encounter (principal); I71.4 Abdominal aortic aneurysm, without rupture; R10.30 Lower abdominal pain, unspecified; I10 Essential (primary) hypertension; I48.91 Unspecified atrial fibrillation
CPT/HCPCS: 74174; 81003; 93005; 93010; 99291

== ENCOUNTER 2018-02-15 15:24 | Emergency (ER) | payer OTHER, MEDICARE ==
[~2018-02-15] VITALS: Ht 180.3 cm; Wt 90.7 kg
--- NOTE | 2018-02-15 16:09 | ED CARDIAC/CP/PALPITATIONS ---
History of Present Illness General Chief Complaint: General Adult Stated Complaint: BIBA EVAL S/P ?BRADYCARDIA Source: patient, family, old records Exam Limitations: no limitations Allergies Coded Allergies: NO KNOWN ALLERGIES (10/30/11) Reconcile Medications Albuterol Sulfate (Proair Hfa) 90 MCG HFA.AER.AD 2 PUF INH 4XDAILY RESP. ( Reported) Apixaban (Eliquis) 5 MG TABLET 1 TAB PO BID BLOOD THINNER (Reported) Aspirin (Ecotrin*) 81 MG TABLET.DR 1 TAB PO QPM HEART/BLOOD (Reported) Atorvastatin Calcium 20 MG TABLET 1 TAB PO DAILY CHOLESTEROL (Reported) Candesartan Cilexetil 4 MG TABLET 1 TAB PO DAILY BP (Reported) Ezetimibe (Zetia) 10 MG TABLET 1 TAB PO DAILY CHOLESTEROL (Reported) Magnesium Oxide (Magnesium) (Unknown Strength) CAPSULE (Unknown Dose) PO DAILY SUPPLEMENT (Reported) Metoprolol Succinate 50 MG TAB.ER.24H 1 TAB PO DAILY HEART/BP (Reported) Nortriptyline HCl 75 MG CAPSULE 175 MG PO QHS DEPRESSION (Reported) Triage Note: BIBA FROM HOME S/P VISITING NURSE REPORTING PATIENTS PULSE TO BE IN 30'S. VISITNG NURSE CALLED 911 FOR EVAL. PATIENT ARRIVES WITH NO COMPLAINTS OF PAIN OR DISCOMFORT. PACEMAKER PRESENT IN LEFT CHEST WALL. PATIENT REPORTS OCCASSIONAL DIZZINESS, WHEN STANDING. Triage Nurses Notes Reviewed? yes Onset: Abrupt Duration: constant Timing: single episode today Radiation: no radiation HPI: Patient is a 82-year-old male with a past medical history of pacemaker placement due to bradycardia last pacemaker was PLACED approximately 4-5 years ago his pca is Dr. WARD patient's paving foreman Dr. OCHOA, patient also has a recent history of aortic aneurysm endoleak where he was transferred to [facility] for AORTOGRAPHIC REPAIR. Patient presents emergency room stating that today a visiting nurse noted the patient had concerns of bradycardia after examining patient pulse rate, patient is asymptomatic denies any fever chills chest pain arm pain jaw pain cough shortness of breath dizziness lightheadedness sensation (Edgar Salazar) Vital Signs & Intake/Output Vital Signs & Intake/Output Vital Signs Date Time Temp Pulse Resp B/P B/P Pulse O2 O2 Flow FiO2 Mean Ox Delivery Rate 02/15 1733 40 20 138/76 99 Room Air 02/15 1535 Nasal 3.0L Cannula 02/15 1532 97.0 38 20 145/79 100 Room Air (Rolanda PARKS,Sergei Heart) Past History Travel History Traveled to [place] past 21 day No Medical History Any Pertinent Medical History? see below for history Neurological: NONE EENT: NONE Cardiovascular: aortic aneurysm, AFIB, hypertension, hyperlipidemia, CARDIAC BIPASS L SIDE PACER/DEFIB Respiratory: bronchitis, emphysema, PULMONARY FIBROSIS Gastrointestinal: constipation, HERNIA L GROIN Hepatic: NONE Renal: NONE Musculoskeletal: COMPRESSION FX Psychiatric: depression Endocrine: NONE Blood Disorders: NONE Cancer(s): NONE JEWEL FLAT SURFACER/Reproductive: NONE History of MRSA: No History of VRE: No History of CDIFF: No Surgical History Surgical History: CABG, AAA, APPEDNECTOMY Psychosocial History Who do you live with Son What is your primary language Macedonian Tobacco Use: Quit >30 days ago ETOH Use: occasional use Family History Hx Contributory? No (Edgar Salazar) Review of Systems Review of Systems Constitutional: Reports: no symptoms. EENTM: Reports: no symptoms. Respiratory: Reports: no symptoms. Cardiovascular: Reports: no symptoms. GI: Reports: no symptoms. Genitourinary: Reports: no symptoms. Musculoskeletal: Reports: no symptoms. Skin: Reports: no symptoms. Neurological/Psychological: Reports: no symptoms. Hematologic/Endocrine: Reports: no symptoms. Immunologic/Allergic: Reports: no symptoms. All Other Systems: Reviewed and Negative (Edgar Salazar) Physical Exam Physical Exam General Appearance: no apparent distress, alert, comfortable Head: atraumatic Eyes: Bilateral: normal appearance, PERRL. Ears, Nose, Throat: hearing grossly normal Neck: normal inspection Respiratory: normal breath sounds, chest non-tender Cardiovascular: bradycardia Gastrointestinal: normal bowel sounds, soft, non-tender Extremities: normal inspection, no edema Neurologic/Psych: no motor/sensory deficits, awake, oriented x 3 Skin: intact, normal color, warm/dry Core Measures ACS in differential dx? No CVA/TIA Diagnosis No Sepsis Present: No Sepsis Focused Exam Completed? No (dEgar Salazar) Progress Differential Diagnosis: AMI, aortic dissection, atrial fibrillation, CHF/pulm edema, costochondritis, hyperkalemia, hypovolemia, hyperthyroid, hyperventilation, intracranial hemorrhage, musculoskeletal pain, myocarditis, pancreatitis, pericarditis, pneumonia, pneumothorax, PSVT, pulmonary embolism, PUD/GERD, PVCs/PACs, respiratory failure, sepsis, unstable angina, V-fib/V-Tach Initial ED EKG: A-V PACED aT 83 BPM (Edgar Salazar) Plan of Care: Orders Procedure Date/time Status EKG 02/15 1530 Active Patient on initial examination was resting comfortably bedside and was asymptomatic patient denies any chest pain or cardiovascular symptoms or pulmonary symptoms, the EKG shows AV paced rhythm [employer] did investigate and interrogate the pacemaker and states that there was noted PVCs however the pacemaker was working properly. I also discussed patient with Blaine Shea MD advised since patient was 8 symptomatic and his [employer] unit was working properly that he can safely be discharged and follow up in office I also talked to DR GARRIDO who also stated that the [employer] unit was working properly after evaluating the data however he advised patient to follow up with tomorrow with cardiology which there was mild suspicion of CHF due to the data in which he advised patient to begin the Lasix previously prescribed, Discussed disposition and plan with patient and family members who agreed again patient had no symptoms and only presents to the emergency room for concerns of a nurse noting peripheral bradycardia of the radial pulse Discussed disposition plan with Dr. Orantes who agrees (Edgar Salazar) (Rolanda PARKS,Sergei Heart) Departure Departure Disposition: HOME OR SELF CARE Condition: Stable Clinical Impression Primary Impression: Pacemaker ECG pattern Referrals: Adeline PARKS,Keyon Dunlap (PCP/Family) Additional Instructions: As discussed tomorrow please follow-up with your paving foreman for further evaluation treatment continue home medications as directed especially your Lasix medications, if symptoms worsen or if YOU develop A new concerning symptom return to emergency room Departure Forms: Customer Survey General Discharge Information (Edgar Salazar) PA/INJECTION MAINTENANCE TECHNICIAN Co-Sign Statement Statement: ED Attending supervision documentation- [X] I saw and evaluated the patient. I have also reviewed all the pertinent lab results and diagnostic results. I agree with the findings and the plan of care as documented in the PA's/INJECTION MAINTENANCE TECHNICIAN's documentation. Patient presents for evaluation of a low heart rate. Patient has a history of a dual pacer. Physical examination reveals a comfortable appearing gentleman in no apparent distress. Heart and lung examinations are remarkable only for somewhat irregular heartbeat. [] I have reviewed the ED Record and agree with the PA's/INJECTION MAINTENANCE TECHNICIAN's documentation. [] Additions or exceptions (if any) to the PAs/INJECTION MAINTENANCE TECHNICIAN's note and plan are summarized below: [] (Rolanda PARKS,Sergei Heart) Critical Care Note Critical Care Note Critical Care Time: non-applicable (Shan MCDONNELL,Edgar)
[2018-02-15 17:33] VITALS: BP 138/76
== END 2018-02-15 17:43 ==
LOC: ERH 15:24
DX: T82.9XXA Unspecified complication of cardiac and vascular prosthetic device, implant and graft, initial encounter (principal); Y83.1 Surgical operation with implant of artificial internal device as the cause of abnormal reaction of the patient, or of later complication, without mention of misadventure at the time of the procedure
CPT/HCPCS: 93005; 93010